=== PATIENT | male | born 1930 | race Caucasian/White ===

== ENCOUNTER 2016-08-23 09:51 | Inpatient (IN) | payer OTHER ==
--- NOTE | 2016-08-23 10:39 | PDOC ---
History of Present Illness - General Chief Complaint: Weakness Stated Complaint: PAIN Time Seen by Provider: 08/23/16 10:15 History Source: Patient Exam Limitations: No Limitations - History of Present Illness Initial Comments: 08/23/16 10:36 85 yo M with significant PMHx of CHF(s/p AICD), CAD(s/p CABG 2009), CKD stage 3 , prostate ca(s/p radiation), and Afib(on predaxa) presents with two day history of productive cough and weakness. He states that he was in his normal state of health until last evening when he started with cough productive of yellow sputum and some chest pressure. He describes 5/10 non-radiating chest pressure that last approx. 5 min and never returned. He states it was related to coughing. He then said he had difficulty sleeping secondary to cough and then this morning he noticed fever and some blood tinged sputum which prompted trip to ED. At this time denies CP, BYNUM, abd. pain, palpitations, N/V. Timing/Duration: 24 hours Severity: mild Associated Symptoms: reports: chest pain, cough Past History - Travel Traveled outside of the country in the last 30 days: No Close contact w/someone who was outside of country & ill: No - Past Medical History Allergies/Adverse Reactions: Allergies Allergy/AdvReac Type Severity Reaction Status Date / Time No Known Allergies Allergy Verified 08/23/16 09:55 Home Medications: Ambulatory Orders Allopurinol [Zyloprim -] 100 mg PO DAILY 08/23/16 Aspirin [Ecotrin] 81 mg PO DAILY 08/23/16 Atorvastatin Ca [Lipitor] 10 mg PO ASDIR 08/23/16 Dabigatran Etexilate Mesylate [Pradaxa -] 75 mg PO BID 08/23/16 Folic Acid 1 mg PO DAILY 08/23/16 Furosemide [Lasix] 40 mg PO BID 08/23/16 Hydralazine HCl 50 mg PO TID 08/23/16 Metoprolol Tartrate [Lopressor -] 12.5 mg PO BID 08/23/16 Sodium Polystyrene Sulfonate [Kionex] 454 gm PO DAILY 08/23/16 Tamsulosin HCl [Flomax] 0.4 mg PO DAILY 08/23/16 Cancer: Yes (hx of prostate ca with radiation) Cardiac Disorders: Yes (ppm, AK) GI Disorders: Yes (enlarged prostate) HTN: Yes Hypercholesterolemia: Yes Other medical history: gout - Surgical History Cardiac Surgery: Yes (ppm, bypass) - Psycho/Social/Smoking Cessation Hx Anxiety: No Suicidal Ideation: No Smoking History: Former smoker Have you smoked in the past 12 months: No If you are a former smoker, when did you quit?: 40 years ago Information on smoking cessation initiated: No Hx Alcohol Use: No Drug/Substance Use Hx: No Substance Use Type: None Review of Systems - Review of Systems Able to Perform ROS?: Yes Is the patient limited Slovenian proficient: No Constitutional: Yes: Fever, Malaise Respiratory: Yes: Cough, Shortness of Breath Cardiac (ROS): Yes: Chest Pain, Lightheadedness ABD/GI: No: Nausea, Vomiting, Abdominal cramping : No: Burning, Dysuria, Discharge All Other Systems: Reviewed and Negative *Physical Exam - Vital Signs Last Vital Signs Temp Pulse Resp BP Pulse Ox 101.7 F H 60 18 92/61 89 L 08/23/16 10:18 08/23/16 09:55 08/23/16 09:55 08/23/16 09:55 08/23/16 09:55 - Physical Exam General Appearance: Yes: Mild Distress HEENT: positive: EOMI, MARTIN Neck: positive: Supple Respiratory/Chest: positive: Decreased Breath Sounds, Crackles (bibasilar). negative: Respiratory Distress, Accessory Muscle Use Cardiovascular: positive: Edema (bilateral 2+ LE edema to level of knee). negative: JVD, Murmur Vascular Pulses: Dorsalis-Pedis (R): 2+, Doralis-Pedis (L): 2+ Gastrointestinal/Abdominal: positive: Normal Bowel Sounds, Flat, Soft Musculoskeletal: positive: Normal Inspection. negative: CVA Tenderness Extremity: positive: Normal Inspection, Normal Range of Motion, Pedal Edema. negative: Calf Tenderness, Erythema ED Treatment Course - LABORATORY CBC & Chemistry Diagram: 08/23/16 10:45 08/23/16 10:45 - RADIOLOGY Chest X-Ray Result: Pneumonia Radiograph Interpretation: 08/23/16 11:32 EXAM#: TYPE/EXAM: RESULT: [id number] RAD/CHEST X-RAY PORTABLE* Sepsis. Single portable chest x-ray. Left pacemaker with 2 intact leads. Sternal wires, status post cardiothoracic surgery. Cardiomegaly. Airspace opacities noted in the left mid, lower lungs and with a bronchograms. No effacement of the left diaphragm, blunting of the costophrenic angle. Accentuated pulmonary vasculature. No effacement of the right diaphragm blunting of the right costophrenic angle. Impression. Cardiomegaly. Left parahilar, lower lung zone airspace opacities with air bronchograms. Differential diagnoses: pulmonary edema, pneumonia. No large pleural effusion is seen. No evidence of pneumothorax Reported By: Alex Ramirez MD 08/23/16 1113 Medical Decision Making - Medical Decision Making 08/23/16 10:52 85 yo M with significant PMHx of CHF(s/p AICD), CAD(s/p CABG 2009), CKD stage 3 , prostate ca(s/p radiation), and Afib(on predaxa) presents with two day history of productive cough and weakness. Suspect possible sepsis. Will activate sepsis protocol. 08/23/16 11:35 * CXR show edema v. PNA * Will give 80mg IV lasix and start Rocephin and Azithro x1 * Will need admission for CAP and acute exacerbation of CHF. * Will contact PCP Roscoe Morrison MD 08/23/16 11:56 * Admission accepted by Dr. Morrison *DC/Admit/Observation/Transfer Diagnosis at time of Disposition: Sepsis Qualifiers: Sepsis type: sepsis due to unspecified organism Qualified Code(s): A41.9 - Sepsis, unspecified organism - Discharge Dispostion Condition at time of disposition: Stable Admit: Yes
[2016-08-23] MEDS ORDERED: ACETAMINOPHEN 500 MG TABLET (FP) PO ONE (10:41)
[2016-08-23] MEDS ORDERED: ACETAMINOPHEN INJECTION 100 ML IVPB ONE (10:42)
[2016-08-23 10:54] LABS: VENOUS PH 7.39 (7.32-7.42)
[2016-08-23 11:11] LABS: INR 1.16 (0.82-1.09); PROTHROMBIN TIME (PATIENT) 12.8 SEC (9.98-11.88)
[2016-08-23 11:14] LABS: ACTIVATED PTT 31.9 SECONDS (26.9-34.4)
[2016-08-23] MEDS ORDERED: FUROSEMIDE 40 MG/4 ML INJECTABLE VIAL IVPUSH ONE (11:18)
[2016-08-23 11:22] LABS: URINE APPEARANCE CLEAR; URINE BILIRUBIN NEGATIVE (NEGATIVE); URINE BLOOD NEGATIVE (NEGATIVE); URINE COLOR YELLOW; URINE GLUCOSE (UA) NEGATIVE (NEGATIVE); URINE KETONE NEGATIVE (NEGATIVE); URINE LEUK ESTERASE NEGATIVE (NEGATIVE); URINE NITRITE NEGATIVE (NEGATIVE); URINE PROTEIN NEGATIVE (NEGATIVE); URINE UROBILINOGEN NEGATIVE E.U./dl (0.2-1.0)
[2016-08-23] MEDS ORDERED: cefTRIAXone 1 GM/50 ML BAG (PRE-DOCKED) IVPB ONE (11:23)
[2016-08-23 11:25] LABS: ALBUMIN 2.9 g/dl (3.4-5.0); BILIRUBIN,TOTAL 0.9 mg/dL (0.2-1.0); CALCIUM 8.5 mg/dL (8.5-10.1); COCKROFT - GAULT 28.7; CREATININE 2.7 mg/dL (0.7-1.3); TOT PROT 6.1 g/dl (6.4-8.2)
[2016-08-23] MEDS ORDERED: AZITHROMYCIN IVPB 500 MG in DEXTROSE 5%-WATER - 250 ML IVPB ONE (11:25)
[2016-08-23 11:28] LABS: TROPONIN I 0.1 ng/ml (0.00-0.05)
[2016-08-23 11:46] LABS: MCH 30.7 pg (25.7-33.7); MCHC 32.5 g/dl (32.0-35.9); MEAN CELL VOLUME 94.3 fl (80-96); PLATELET COUNT 260 K/MM3 (134-434); RDW 14.7 % (11.9-15.9); WHITE BLOOD COUNT 25.1 K/mm3 (4.0-10.0)
[2016-08-23] MEDS ORDERED: FUROSEMIDE 40 MG/4 ML INJECTABLE VIAL ONE (11:48)
[2016-08-23] MEDS ORDERED: CEFTRIAXONE 50 ML ONE ×2 (11:51→17:08)
[2016-08-23] MEDS ORDERED: AZITHROMYCIN IVPB 250 ML IVPB ONE (11:51)
[2016-08-23] MEDS ORDERED: SODIUM CHLORIDE 250 ML IV STA (12:46)
[2016-08-23 12:49] LABS: PLATELET ESTIMATE ADEQUATE (NORMAL)
[2016-08-23 12:50] VITALS: BMI 28.7
--- NOTE | 2016-08-23 13:29 | HP ---
CHIEF COMPLAINT: weakness with + productive cough PCP: Roscoe Morrison HISTORY OF PRESENT ILLNESS: 85 yo M with significant PMHx of CHF(s/p AICD), CAD(s/p CABG 2009), CKD stage 3 , prostate ca(s/p radiation), and Afib(on pradaxa) presents with two day history of productive cough and weakness. He states that he was in his normal state of health until last evening when he started with cough productive of yellow sputum and some chest pressure. He describes 5/10 non-radiating chest pressure that last approx. 5 min and never returned. He states it was related to coughing. He then said he had difficulty sleeping secondary to cough and then this morning he noticed fever and some blood tinged sputum which prompted trip to ED. At this time denies CP, BYNUM, abd. pain, palpitations, N/V. Pt states he took all of his home meds prior to coming in . He was also found in ER with fever over 101, Lactic acid of over 2, trop of 0.10, congestion and suspcion of PNA on CXR. Treated initially Azithro, Rocephin for PNA, Lasix 80 for fluid congestion, tylenol for fever. ER course was notable for: (1) hypotension; during ER stay pt with SIRS findings of fever, hypothension, treated gingerly with 250 bolus x 2 with close montioring and shows improvement to 94/60. Asymtomatic. (2) PNA/chest congestion: ABT, LA, blood cx ordered. (3) Recent Travel: PAST MEDICAL HISTORY: CHF, AICD, CAD, CABG, CKD, BPH, AF, PAST SURGICAL HISTORY: Social History: Smoking: Alcohol: Drugs: Family History: Allergies No Known Allergies Allergy (Verified 08/23/16 09:55) HOME MEDICATIONS: Home Medications Medication Instructions Recorded Allopurinol [Zyloprim -] 100 mg PO DAILY 08/23/16 Aspirin [Ecotrin] 81 mg PO DAILY 08/23/16 Atorvastatin Ca [Lipitor] 10 mg PO ASDIR 08/23/16 Dabigatran Etexilate Mesylate 75 mg PO BID 08/23/16 [Pradaxa -] Folic Acid 1 mg PO DAILY 08/23/16 Furosemide [Lasix] 40 mg PO BID 08/23/16 Hydralazine HCl 50 mg PO TID 08/23/16 Metoprolol Tartrate [Lopressor -] 12.5 mg PO BID 08/23/16 Sodium Polystyrene Sulfonate 454 gm PO DAILY 08/23/16 [Kionex] Tamsulosin HCl [Flomax] 0.4 mg PO DAILY 08/23/16 REVIEW OF SYSTEMS CONSTITUTIONAL: Absent: (+)fever, (+)chills, diaphoresis, (+)generalized weakness, malaise, loss of appetite, weight change HEENT: Absent: rhinorrhea, nasal congestion, throat pain, throat swelling, difficulty swallowing, mouth swelling, ear pain, eye pain, visual changes CARDIOVASCULAR: Absent: chest pain, syncope, palpitations, irregular heart rate, lightheadedness , (+) chronicperipheral edema RESPIRATORY: Absent: (+)cough, (+)shortness of breath, dyspnea with exertion, orthopnea, wheezing, stridor, hemoptysis GASTROINTESTINAL: Absent: abdominal pain, abdominal distension, nausea, vomiting, diarrhea, constipation, melena, hematochezia GENITOURINARY: Absent: dysuria, frequency, urgency, hesitancy, hematuria, flank pain, genital pain MUSCULOSKELETAL: Absent: myalgia, arthralgia, joint swelling, back pain, neck pain SKIN: Absent: rash, itching, pallor HEMATOLOGIC/IMMUNOLOGIC: Absent: easy bleeding, easy bruising, lymphadenopathy, frequent infections ENDOCRINE: Absent: unexplained weight gain, unexplained weight loss, heat intolerance, cold intolerance NEUROLOGIC: Absent: headache, focal weakness or paresthesias, dizziness, unsteady gait, seizure, mental status changes, bladder or bowel incontinence PSYCHIATRIC: Absent: anxiety, depression, suicidal or homicidal ideation, hallucinations. PHYSICAL EXAMINATION Vital Signs - 24 hr 08/23/16 08/23/16 08/23/16 12:14 12:21 12:27 Temperature 98.8 F 98.8 F Pulse Rate 60 Pulse Rate [ 62 Apical] Respiratory 18 18 Rate Blood Pressure 105/54 Blood Pressure 88/50 [Right Arm] O2 Sat by Pulse 97 98 Oximetry (%) 08/23/16 12:48 Temperature Pulse Rate Pulse Rate [ 60 Apical] Respiratory 18 Rate Blood Pressure Blood Pressure 79/47 [Right Arm] O2 Sat by Pulse 97 Oximetry (%) GENERAL: Awake, alert, and fully oriented, in no acute distress. HEAD: Normal with no signs of trauma. NECK: Normal range of motion, supple without lymphadenopathy,(+) JVD, or masses. LUNGS: Breath sounds equal, bilateral congestion, rhonchi to auscultation bilaterally. No wheezes, No accessory muscle use. HEART: Regular rate and rhythm, normal S1 and S2 without murmur, rub or gallop. with a V paced rhythm ABDOMEN: Soft, nontender, slightly distended but pt states this is normal size of belly, normoactive bowel sounds, no guarding, no rebound, no masses. No hepatomegaly or splenomegaly. MUSCULOSKELETAL: Normal range of motion at all joints. No bony deformities or tenderness. No CVA tenderness. UPPER EXTREMITIES: 2+ pulses, warm, well-perfused. No cyanosis. No clubbing. No peripheral edema. LOWER EXTREMITIES: 2+ pulses, warm, well-perfused. No calf tenderness. +1 bilateral peripheral edema. NEUROLOGICAL: Cranial nerves II-XII intact. Normal speech. Normal gait. PSYCHIATRIC: Cooperative. Good eye contact. Appropriate mood and affect. SKIN: Warm, dry, normal turgor, no rashes or lesions noted, normal capillary refill. ASSESSMENT/PLAN: 85 yr old male with new onset of weakness and + cough production for 2 days with c/o fever, chills. Includes finding of + fever, +hypotension, + chest congestion/fluid/PNA, 1. Pneumonia -Rocephin and azithromax ordered starting today -trend WBC with today at 25 -monitor fever and tx with tylenol -repeat LA -oxygen to maintain sat >95% 2. hypotension -given lasix 80 in ER. -monitor bp -ICU care -ivf bolus 250 at time to monitor tolerance 3. CAD -continue meds -repeat Trop at 5 pm and again in AM for trending. 4. GI/DVT ppx Visit type - Emergency Visit Emergency Visit: Yes ED Registration Date: 08/23/16 Care time: The patient presented to the Emergency Department on the above date and was hospitalized for further evaluation of their emergent condition. - New Patient This patient is new to me today: Yes Date on this admission: 08/23/16 - Critical Care Critical Care patient: No
[2016-08-23] MEDS ORDERED: hydrALAZINE HCL 50 MG TABLET (FP) PO SCH (14:00)
[2016-08-23] MEDS ORDERED: SODIUM CHLORIDE 0.9% 1000 ML INFUS.BAG IV ONE (14:06)
[2016-08-23] MEDS ORDERED: ACETAMINOPHEN 500 MG TABLET (FP) PO PRN (14:08)
[2016-08-23] MEDS ORDERED: FUROSEMIDE 40 MG TABLET (FP) PO SCH (14:45)
--- NOTE | 2016-08-23 16:14 | PN ---
Teaching Attending Note Name of Resident: Mone Mendoza ATTENDING PHYSICIAN STATEMENT I saw and evaluated the patient. I reviewed the resident's note and discussed the case with the resident. I agree with the resident's findings and plan as documented. SUBJECTIVE: Patient seen and examined in the ICU. In brief, 85 M CHF, AICD about 5 years ago, CAD, CABGx4 in 2010, CKD stage 3, prostate CA (s/p radiation), and Afib on Pradxa. 2 days of URI type symptoms. Developed congested cough and today had slight hemoptysis. (+) subjective fever. No travel history. Lives with who has is healthy. No sick contacts. CXR: Rotated / slightly underexposed. Suspected LLL infiltrate / possible chronic changes are noted. Sepsis considered due to fever, hypotension, Leukocytosis, and elevated lactic acid. Intake & Output 08/20/16 08/21/16 08/22/16 08/23/16 23:59 23:59 23:59 23:59 Intake Total 250 Balance 250 Weight 189 lb Last Vital Signs Temp Pulse Resp BP Pulse Ox 98.9 F 61 19 102/50 99 08/23/16 14:50 08/23/16 14:50 08/23/16 14:50 08/23/16 14:50 08/23/16 15:00 Active Medications Acetaminophen (Tylenol -) 1,000 mg PO Q6H PRN PRN Reason: FEVER OR PAIN Allopurinol (Zyloprim -) 100 mg PO DAILY [facility] Aspirin (Ecotrin -) 81 mg PO DAILY [facility] Atorvastatin Calcium (Lipitor -) 10 mg PO HS [facility] Dabigatran (Pradaxa -) 75 mg PO BID [facility] Folic Acid (Folic Acid -) 1 mg PO DAILY [facility] Azithromycin 250 mg/ Dextrose 250 mls @ 250 mls/hr IVPB DAILY [facility] Ceftriaxone Sodium (Rocephin 1gm Ivpb (Pre-Docked)) 50 mls @ 100 mls/hr IVPB DAILY [facility] Metoprolol Tartrate (Lopressor -) 12.5 mg PO BID [facility] Non-Formulary Medication (Sodium Polystyrene Sulfonate [Kionex]) 454 gm PO DAILY [facility] Tamsulosin HCl (Flomax -) 0.4 mg PO DAILY [facility] General Appearance: Yes: Awake and alert, NAD HEENT: positive: (-) Icterus Neck: positive: Supple Respiratory/Chest: positive: Bibasilar crackles Left > Right negative: (-) wheezing, Accessory Muscle Use Cardiovascular: positive: Edema (bilateral 2+ LE edema to level of knee). negative: JVD, Murmur Vascular Pulses: Dorsalis-Pedis (R): 2+, Doralis-Pedis (L): 2+ Gastrointestinal/Abdominal: positive: (+) Bowel Sounds, Flat, Soft Musculoskeletal: positive: Normal Inspection. negative: CVA Tenderness Extremity: positive: Normal Inspection, Normal Range of Motion, Pedal Edema. negative: Calf Tenderness, Erythema Laboratory Results - last 24 hr 08/23/16 08/23/16 08/23/16 10:43 10:45 10:45 WBC 25.1 H RBC 3.93 L Hgb 12.0 Hct 37.0 MCV 94.3 MCHC 32.5 RDW 14.7 Plt Count 260 MPV 10.0 Neutrophils % 80.0 Lymphocytes % 3.0 L Monocytes % 9.0 Band Neutrophils 8.0 Platelet Estimate Adequate Platelet Comment No clumping noted INR 1.16 H PTT (Actin FS) 31.9 VBG pH POC VBG pCO2 POC VBG pO2 Mixed VBG HCO3 Sodium Potassium Chloride Carbon Dioxide Anion Gap BUN Creatinine Creat Clearance w eGFR Random Glucose Lactic Acid Calcium Total Bilirubin AST ALT Alkaline Phosphatase Creatine Kinase Troponin I Total Protein Albumin Urine Color Urine Appearance Urine pH Ur Specific [place] Urine Protein Urine Glucose (UA) Urine Ketones Urine Blood Urine Nitrite Urine Bilirubin Urine Urobilinogen Ur Leukocyte Esterase Blood Type A POSITIVE Antibody Screen Negative 08/23/16 08/23/16 08/23/16 10:45 10:45 10:45 WBC RBC Hgb Hct MCV MCHC RDW Plt Count MPV Neutrophils % Lymphocytes % Monocytes % Band Neutrophils Platelet Estimate Platelet Comment INR PTT (Actin FS) VBG pH 7.39 POC VBG pCO2 43.7 POC VBG pO2 15.7 L* Mixed VBG HCO3 26.0 H Sodium 139 Potassium 4.5 Chloride 100 Carbon Dioxide 28 Anion Gap 11 BUN 73 H Creatinine 2.7 H Creat Clearance w eGFR 22.63 Random Glucose 92 Lactic Acid 2.126 H* Calcium 8.5 Total Bilirubin 0.9 AST 20 ALT 17 Alkaline Phosphatase 55 Creatine Kinase 70 Troponin I 0.10 H Total Protein 6.1 L Albumin 2.9 L Urine Color Urine Appearance Urine pH Ur Specific [place] Urine Protein Urine Glucose (UA) Urine Ketones Urine Blood Urine Nitrite Urine Bilirubin Urine Urobilinogen Ur Leukocyte Esterase Blood Type Antibody Screen 08/23/16 08/23/16 11:15 13:15 WBC RBC Hgb Hct MCV MCHC RDW Plt Count MPV Neutrophils % Lymphocytes % Monocytes % Band Neutrophils Platelet Estimate Platelet Comment INR PTT (Actin FS) VBG pH POC VBG pCO2 POC VBG pO2 Mixed VBG HCO3 Sodium Potassium Chloride Carbon Dioxide Anion Gap BUN Creatinine Creat Clearance w eGFR Random Glucose Lactic Acid 1.531 Calcium Total Bilirubin AST ALT Alkaline Phosphatase Creatine Kinase Troponin I Total Protein Albumin Urine Color Yellow Urine Appearance Clear Urine pH 5.0 Ur Specific [place] 1.013 Urine Protein Negative Urine Glucose (UA) Negative Urine Ketones Negative Urine Blood Negative Urine Nitrite Negative Urine Bilirubin Negative Urine Urobilinogen Negative Ur Leukocyte Esterase Negative Blood Type Antibody Screen IMP: Sepsis due to suspected LLL CAP CHF AICD about 5 years ago CAD CABGx4 in 2009 CKD stage 3 Prostate CA (s/p radiation) Afib on Pradxa. PLAN: ABX Judicious IVF O2 as needed Xavier-culture OK to continue Pradaxa for now Strict I&O ICU monitoring Critical care time spent in reviewing chart, evaluating patient and formulating plan [address] Balbuena
--- NOTE | 2016-08-23 16:20 | CONSULT ---
Consultation: REQUESTING PROVIDER: CONSULT REQUEST: We have been asked to medically evaluate this patient for (ICU) . HISTORY OF PRESENT ILLNESS: 85 yo M with significant PMHx of CHF(s/p AICD), CAD(s/p CABG 2009), CKD stage 3 , prostate ca(s/p radiation), and Afib(on pradaxa) presents with sob. patient was feeling like his normal self after working outside, cleaning his basement, and running on the treadmill. when he developed sob, productive yellow cough. Patient reports progressive cough, when he woke up this morning he caught one small amount of blood tinged sputum and non radiating chest pain last 5 minutes in his epigastric area. pain was constant, pressure like, attributes it to the cough. no sick contact, has not been ill recent, no recent hospitalization, has had cystoscopy 4 weeks ago for hematurea and scheduled for excision biopsy of uterine mass. Pt states he took all of his home meds prior to coming in. In ED found 101, Lactic acid of over 2, trop of 0.10, congestion and suspcion of PNA on CXR. Treated initially Azithro, Rocephin for PNA, Lasix 80 for fluid congestion, tylenol for fever. hypotension; during ER stay pt with SIRS findings of fever, hypothension, treated gingerly with 250 bolus x 2 with close montioring and shows improvement to 94/60. Asymptomatic. currently 106/62. reports fever, chills, cough, hemoptysis, diaphoresis, shortness of breath, The patient denies, headache. The patient denies jaw/ back pain lower extremity pain/swelling, calf tenderness/pain The patient denies recent travel, recent surgery,lower extremity pain/swelling, recent immobilization. The patient denies abdominal pain,nausea, vomiting, diarrhea, hematochezia, melena. Social HX: THe fomer smoker, denies ETOH and illicit drug use. REVIEW OF SYSTEMS: as above CONSTITUTIONAL: fever, chills, diaphoresis, generalized weakness, malaise, Absent: loss of appetite, weight change HEENT: Absent: rhinorrhea, nasal congestion, throat pain, throat swelling, difficulty swallowing, mouth swelling, ear pain, eye pain, visual changes CARDIOVASCULAR: peripheral edema Absent: chest pain, syncope, palpitations, irregular heart rate, lightheadedness , RESPIRATORY: cough, shortness of breath, hemoptysis Absent: dyspnea with exertion, orthopnea, wheezing, stridor, GASTROINTESTINAL: Absent: abdominal pain, abdominal distension, nausea, vomiting, diarrhea, constipation, melena, hematochezia GENITOURINARY: Absent: dysuria, frequency, urgency, hesitancy, hematuria, flank pain, genital pain MUSCULOSKELETAL: Absent: myalgia, arthralgia, joint swelling, back pain, neck pain SKIN: Absent: rash, itching, pallor HEMATOLOGIC/IMMUNOLOGIC: Absent: easy bleeding, easy bruising, lymphadenopathy, frequent infections ENDOCRINE: Absent: unexplained weight gain, unexplained weight loss, heat intolerance, cold intolerance NEUROLOGIC: Absent: headache, focal weakness or paresthesias, dizziness, unsteady gait, seizure, mental status changes, bladder or bowel incontinence PSYCHIATRIC: Absent: anxiety, depression, suicidal or homicidal ideation, hallucinations. PHYSICAL EXAMINATION Vital Signs - 24 hr 08/23/16 08/23/16 08/23/16 12:14 12:21 12:27 Temperature 98.8 F 98.8 F Pulse Rate 60 Pulse Rate [ 62 Apical] Respiratory 18 18 Rate Blood Pressure 105/54 Blood Pressure 88/50 [Right Arm] O2 Sat by Pulse 97 98 Oximetry (%) 08/23/16 08/23/16 08/23/16 12:48 13:34 13:44 Temperature Pulse Rate Pulse Rate [ 60 60 60 Apical] Respiratory 18 20 18 Rate Blood Pressure Blood Pressure 79/47 96/55 94/51 [Right Arm] O2 Sat by Pulse 97 98 98 Oximetry (%) 08/23/16 08/23/16 08/23/16 14:30 14:50 15:00 Temperature 98.9 F Pulse Rate 61 Pulse Rate [ 60 Apical] Respiratory 18 19 Rate Blood Pressure 102/50 Blood Pressure 96/50 [Right Arm] O2 Sat by Pulse 98 99 Oximetry (%) GENERAL: Awake, alert, and fully oriented, in no acute distress. HEAD: Normal with no signs of trauma. EYES: extraocular movements intact, sclera anicteric, conjunctiva clear. EARS, NOSE, THROAT: Ears normal, nares patent, oropharynx clear without exudates. Moist mucous membranes. NECK: Normal range of motion, supple without lymphadenopathy, JVD, or masses. LUNGS: Breath sounds equal, crackles at bases bilateraly, + rhonchi left, No wheezes, and no crackles. No accessory muscle use. HEART: Regular rate and rhythm, normal S1 and S2 without murmur, rub or gallop. ABDOMEN: Soft, nontender, not distended, normoactive bowel sounds, no guarding, no rebound, no masses. No hepatomegaly or splenomegaly. MUSCULOSKELETAL: Normal range of motion at all joints. No bony deformities or tenderness. No CVA tenderness. LOWER EXTREMITIES: 2+ pulses, warm, well-perfused. No calf tenderness. +2 peripheral edema. NEUROLOGICAL: Cranial nerves II-XII intact. Normal speech. PSYCHIATRIC: Cooperative. Good eye contact. Appropriate mood and affect. SKIN: Warm, dry, normal turgor, no rashes or lesions noted. Laboratory Results - last 24 hr 08/23/16 13:15 Lactic Acid 1.531 Active Medications Generic Name Dose Route Start Last Admin Trade Name Freq PRN Reason Stop Dose Admin Acetaminophen 1,000 mg 08/23/16 14:08 Tylenol - PO Q6H PRN FEVER OR PAIN Allopurinol 100 mg 08/24/16 10:00 Zyloprim - PO DAILY [facility] Aspirin 81 mg 08/24/16 10:00 Ecotrin - PO DAILY [facility] Atorvastatin Calcium 10 mg 08/23/16 22:00 Lipitor - PO HS [facility] Dabigatran 75 mg 08/23/16 22:00 Pradaxa - PO BID [facility] Folic Acid 1 mg 08/24/16 10:00 Folic Acid - PO DAILY [facility] Azithromycin 250 mg/ Dextrose 250 mls @ 250 mls/hr 08/24/16 10:00 IVPB DAILY [facility] Ceftriaxone Sodium 50 mls @ 100 mls/hr 08/24/16 10:00 Rocephin 1gm Ivpb (Pre-Docked) IVPB DAILY [facility] Metoprolol Tartrate 12.5 mg 08/23/16 22:00 Lopressor - PO BID [facility] Non-Formulary Medication 454 gm 08/24/16 10:00 Sodium Polystyrene Sulfonate [Kionex] PO DAILY [facility] Tamsulosin HCl 0.4 mg 08/24/16 10:00 Flomax - PO DAILY [facility] ASSESSMENT/PLAN: 85 yo M with significant PMHx of CHF(s/p AICD), CAD(s/p CABG 2009), CKD stage 3 , prostate ca(s/p radiation), and Afib(on pradaxa) presents with sob and productive cough for 2 days. Severe Sepsis: secondary possible bacterial PNA: febrile, leukocytes wbc 25k, lactica acidosis, CARROL, (hypotension secondary to Lasix responded to fluids) +- troponins. -CXR Rotated / slightly underexposed. Suspected LLL infiltrate / possible chronic changes are noted. -Rocephin/zithromax -f/u Cultures, UA antigen -Rocephin and azithromax ordered starting today -patient is extensive cardiac history, IV hydration 50cc/hr, currently BP stable , consider more aggressive treatment if BP decreases -monitor fever and tx with tylenol -oxygen to maintain sat >95% hypotension- resolved- secondary to patient taking home meds, and getting lasixs in ER. -d/c lasix -d/c hydrazine -monitor bp -ICU care IV NS 50cc/hr CAD -continue meds -repeat Trop at 5 pm and again in AM for trending. - cardio consulted Hematuria with bladder mass -patient following up as outpatient Hyperlipidemia -Lipitor GI/DVT ppx FEN IVNS 50cc/hr low cholesterol/na diet Replete electrolyte as needed Dispo: We will continue to follow the patient. Thank you for this consultative opportunity. Visit type - Emergency Visit Emergency Visit: Yes ED Registration Date: 08/23/16 Care time: The patient presented to the Emergency Department on the above date and was hospitalized for further evaluation of their emergent condition. - New Patient This patient is new to me today: Yes Date on this admission: 08/23/16 - Critical Care Critical Care patient: Yes Total Critical Care Time (in minutes): 56 Critical Care Statement: The care of this patient involved high complexity decision making to prevent further life threatening deterioration of the patient 's condition and/or to evalute & treat vital organ system(s) failure or risk of failure.
[2016-08-23] MEDS ORDERED: SODIUM CHLORIDE 1,000 ML IV SCH (16:30)
--- NOTE | 2016-08-23 16:39 | CONSULT ---
Consult Consult Specialty:: Nephrology Reason for Consultation:: CKD - History of Present Illness Chief Complaint: cough and weakness History of Present Illness: Pt is an 85 year old male with pmhx of CKD stage 3, CHF, AICD placement, CAD s/ p CABG, prostate cancer and a-fib who presents to the ER with weakness and cough. Pt is usually active. He was found to be febrile in the ER and was found to have elevated lactic acid. Pt was initially given fluids. He was then given lasix. He became hypotensive and fluids were restarted. I was called to evaluate pt for CKD. He is accompanied by his son. He has history of CKD stage 3 and follows with a nepnrologist in [facility]. He denies dysuria. He does get hematuria at times. He says he currently feels better than he did this morning. He is more awake and alert. He did tolerate lunch. - History Source History Provided By: Patient, Family Member, Medical Record - Past Medical History Cardio/Vascular: Yes: AFIB, CAD, CHF, HTN Renal/: Yes: Renal Inusuff, Hematuria Heme/Onc: Yes: Other (prostate cancer) - Past Surgical History Past Surgical History: Yes: CABG - Alcohol/Substance Use Hx Alcohol Use: No - Smoking History Smoking history: Former smoker Have you smoked in the past 12 months: No If you are a former smoker, when did you quit?: 40 years ago Home Medications - Allergies Allergies/Adverse Reactions: Allergies Allergy/AdvReac Type Severity Reaction Status Date / Time No Known Allergies Allergy Verified 08/23/16 09:55 - Home Medications Home Medications: Ambulatory Orders Allopurinol [Zyloprim -] 100 mg PO DAILY 08/23/16 Aspirin [Ecotrin] 81 mg PO DAILY 08/23/16 Atorvastatin Ca [Lipitor] 10 mg PO ASDIR 08/23/16 Dabigatran Etexilate Mesylate [Pradaxa -] 75 mg PO BID 08/23/16 Folic Acid 1 mg PO DAILY 08/23/16 Furosemide [Lasix] 40 mg PO BID 08/23/16 Hydralazine HCl 50 mg PO TID 08/23/16 Metoprolol Tartrate [Lopressor -] 12.5 mg PO BID 08/23/16 Sodium Polystyrene Sulfonate [Kionex] 454 gm PO DAILY 08/23/16 Tamsulosin HCl [Flomax] 0.4 mg PO DAILY 08/23/16 Family Disease History - Family Disease History Family History: Denies Review of Systems - Review of Systems Constitutional: reports: Chills, Malaise Eyes: reports: No Symptoms HENT: reports: No Symptoms Neck: reports: No Symptoms Cardiovascular: reports: Shortness of Breath Respiratory: reports: Cough, SOB, SOB on Exertion Gastrointestinal: reports: No Symptoms Genitourinary: reports: No Symptoms Musculoskeletal: reports: No Symptoms Neurological: reports: No Symptoms Endocrine: reports: No Symptoms Hematology/Lymphatic: reports: No Symptoms Psychiatric: reports: No Symptoms Physical Exam Vital Signs: Vital Signs Temperature 98.9 F 08/23/16 14:50 Pulse Rate 61 08/23/16 14:50 Respiratory Rate 19 08/23/16 14:50 Blood Pressure 102/50 08/23/16 14:50 O2 Sat by Pulse Oximetry (%) 99 08/23/16 15:00 Selected Entries 08/23/16 08/23/16 08/23/16 10:18 11:06 12:21 Temperature 101.7 F H Blood Pressure Blood Pressure 105/54 88/50 [Right Arm] 08/23/16 08/23/16 08/23/16 12:48 13:34 13:44 Temperature Blood Pressure Blood Pressure 79/47 96/55 94/51 [Right Arm] 08/23/16 08/23/16 14:30 14:50 Temperature Blood Pressure 102/50 Blood Pressure 96/50 [Right Arm] Constitutional: Yes: Calm Eyes: Yes: Conjunctiva Clear HENT: Yes: Atraumatic Neck: Yes: Supple Cardiovascular: Yes: S1, S2 Respiratory: Yes: On Nasal O2, Rhonchi Gastrointestinal: Yes: Soft Renal/: Yes: WNL Musculoskeletal: Yes: WNL Edema: Yes Edema: LLE: Trace, RLE: Trace Neurological: Yes: Oriented Psychiatric: Yes: Oriented Labs: Laboratory Tests 08/23/16 08/23/16 08/23/16 10:45 10:45 10:45 WBC 25.1 H Hgb 12.0 Plt Count 260 INR 1.16 H Sodium 139 Potassium 4.5 Chloride 100 Carbon Dioxide 28 Anion Gap 11 BUN 73 H Creatinine 2.7 H Creat Clearance w eGFR 22.63 Lactic Acid Calcium 8.5 Total Bilirubin 0.9 AST 20 ALT 17 Alkaline Phosphatase 55 Creatine Kinase 70 Troponin I 0.10 H Total Protein 6.1 L Albumin 2.9 L Urine Color Urine Appearance Urine pH Ur Specific [place] Urine Protein Urine Glucose (UA) Urine Ketones Urine Blood Urine Nitrite Urine Bilirubin Urine Urobilinogen Ur Leukocyte Esterase 08/23/16 08/23/16 08/23/16 10:45 11:15 13:15 WBC Hgb Plt Count INR Sodium Potassium Chloride Carbon Dioxide Anion Gap BUN Creatinine Creat Clearance w eGFR Lactic Acid 2.126 H* 1.531 Calcium Total Bilirubin AST ALT Alkaline Phosphatase Creatine Kinase Troponin I Total Protein Albumin Urine Color Yellow Urine Appearance Clear Urine pH 5.0 Ur Specific [place] 1.013 Urine Protein Negative Urine Glucose (UA) Negative Urine Ketones Negative Urine Blood Negative Urine Nitrite Negative Urine Bilirubin Negative Urine Urobilinogen Negative Ur Leukocyte Esterase Negative Imaging - Results Chest X-ray: Report Reviewed Problem List - Problems (1) Sepsis Code(s): A41.9 - SEPSIS, UNSPECIFIED ORGANISM Qualifiers: Sepsis type: sepsis due to unspecified organism Qualified Code(s): A41.9 - Sepsis, unspecified organism (2) CKD (chronic kidney disease) stage 3, GFR 30-59 ml/min Code(s): N18.3 - CHRONIC KIDNEY DISEASE, STAGE 3 (MODERATE) (3) CAD (coronary artery disease) Code(s): I25.10 - ATHSCL HEART DISEASE OF [place] CORONARY ARTERY W/O ANG PCTRS (4) Hx of CABG Code(s): Z95.1 - PRESENCE OF AORTOCORONARY BYPASS GRAFT (5) Atrial fibrillation Code(s): I48.91 - UNSPECIFIED ATRIAL FIBRILLATION (6) Prostate CA Code(s): C61 - MALIGNANT NEOPLASM OF PROSTATE Assessment/Plan Current Medications Generic Name Dose Route Start Last Admin Trade Name Freq PRN Reason Stop Dose Admin Acetaminophen 1,000 mg 08/23/16 14:08 Tylenol - PO Q6H PRN FEVER OR PAIN Allopurinol 100 mg 08/24/16 10:00 Zyloprim - PO DAILY [facility] Aspirin 81 mg 08/24/16 10:00 Ecotrin - PO DAILY [facility] Atorvastatin Calcium 10 mg 08/23/16 22:00 Lipitor - PO HS [facility] Ceftriaxone Sodium 2 gm 08/24/16 10:00 Rocephin 2gm Ivpb (Pre-Docked) IVPB DAILY [facility] Protocol Dabigatran 75 mg 08/23/16 22:00 Pradaxa - PO BID [facility] Folic Acid 1 mg 08/24/16 10:00 Folic Acid - PO DAILY [facility] Azithromycin 250 mg/ Dextrose 250 mls @ 250 mls/hr 08/24/16 10:00 IVPB DAILY [facility] Sodium Chloride 1,000 mls @ 50 mls/hr 08/23/16 16:30 Normal Saline - IV 08/24/16 12:29 ASDIR [facility] Metoprolol Tartrate 12.5 mg 08/23/16 22:00 Lopressor - PO BID [facility] Non-Formulary Medication 454 gm 08/24/16 10:00 Sodium Polystyrene Sulfonate [Kionex] PO DAILY [facility] Tamsulosin HCl 0.4 mg 08/24/16 10:00 Flomax - PO DAILY [facility] Laboratory Tests 08/23/16 10:45 Creat Clearance w eGFR 22.63 Impression 1. CKD stage 3 with likely acute component as gfr here is 22 2. Sepsis 3. PNA 4. CAD 5. a-fib 6. hematuria with bladder mass 7. hx prostate cancer 8. hyperlipidemia 9. gout Plan - agree with admission to ICU - IV hydration - hold off diuretics - monitor lactic acid level - repeat labs in am - will attempt to obtain outpt records - ua is neg for blood or protein - urine lytes will not be very useful as pt was given fluids and lasix - discussed with ICU team - will follow Dr Perez
[2016-08-23] MEDS ORDERED: CEFTRIAXONE 1 GM in DEXTROSE 5%-WATER - 50 ML IVPB ONE (16:43)
--- NOTE | 2016-08-23 16:52 | PN ---
Progress Note (short form) - Note Progress Note: ID consult dictated imp/reccd CAP CHF CAD AICD no travel no pets rocephin/zithromax cultures legionella urinary antigen
[2016-08-23] MEDS ORDERED: CEFTRIAXONE 50 ML IVPB ONE (17:11)
[2016-08-23 17:27] LABS: BASOPHIL 0.3 % (0-2.0); EOSINOPHIL 0.1 % (0-4.5); MCH 30.7 pg (25.7-33.7); MCHC 32.7 g/dl (32.0-35.9); MEAN PLT VOLUME 9.2 fl (7.5-11.1); NEUTROPHILS 85.5 % (42.8-82.8); PLATELET COUNT 252 K/MM3 (134-434); RDW 15.1 % (11.9-15.9); WHITE BLOOD COUNT 23.2 K/mm3 (4.0-10.0)
[2016-08-23 17:48] LABS: INR 1.29 (0.82-1.09); PROTHROMBIN TIME (PATIENT) 14.3 SEC (9.98-11.88)
[2016-08-23 17:51] LABS: ACTIVATED PTT 35.8 SECONDS (26.9-34.4)
[2016-08-23 18:14] LABS: URINE APPEARANCE CLEAR; URINE BILIRUBIN NEGATIVE (NEGATIVE); URINE BLOOD NEGATIVE (NEGATIVE); URINE COLOR STRAW; URINE GLUCOSE (UA) NEGATIVE (NEGATIVE); URINE KETONE NEGATIVE (NEGATIVE); URINE LEUK ESTERASE NEGATIVE (NEGATIVE); URINE NITRITE NEGATIVE (NEGATIVE); URINE PROTEIN NEGATIVE (NEGATIVE); URINE UROBILINOGEN NEGATIVE E.U./dl (0.2-1.0)
[2016-08-23 18:39] LABS: TROPONIN I 0.15 ng/ml (0.00-0.05)
[2016-08-23 18:41] LABS: ALBUMIN 2.6 g/dl (3.4-5.0); BILIRUBIN,TOTAL 0.6 mg/dL (0.2-1.0); CALCIUM 8.1 mg/dL (8.5-10.1); COCKROFT - GAULT 23.81; CREATININE 2.8 mg/dL (0.7-1.3); TOT PROT 5.6 g/dl (6.4-8.2)
--- NOTE | 2016-08-23 18:47 | CONS ---
DATE OF CONSULTATION: DATE OF DICTATION: 08/23/2016 INFECTIOUS DISEASE CONSULTATION REQUESTING PHYSICIAN: [facility] CONSULTING PHYSICIAN: Vaughn England M.D. HISTORY OF PRESENT ILLNESS: This is an 85-year-old man who lives at home. He has a history of coronary artery disease, he is status post [place] at age 62. He had a CABG x4. He has an AICD in place. He has chronic kidney disease which has been worsening lately, and his Lasix was increased to b.i.d. quite recently. He was well until yesterday, in fact he even walked on the treadmill. He walks on the treadmill for half an hour every morning until last evening when he started having a cough with some sputum. He had some chest discomfort. The next morning he felt extremely weak and he could not move. He had some hemoptysis, that was this morning, and he came to the emergency room. In the ER he was noted to have fever which he denied at home. He denies any chills or rigors. He denies any dysuria or diarrhea. His appetite has been fine. He was found to have an elevated lactic acid, a troponin of 0.1, and bilateral infiltrates on chest x-ray were noted. He was given ceftriaxone and Zithromax and I am asked to see him. PAST MEDICAL HISTORY: Notable for congestive heart failure, coronary artery disease, chronic kidney disease. He has a history of atrial fibrillation, prostate cancer. He is status post CABG x4 in 2005 and after that he had an AICD placed. ALLERGIES: No known drug allergies. MEDICATION: Medications at home include allopurinol, Ecotrin, Lipitor, Pradaxa, folic acid, furosemide, hydralazine, metoprolol, and tamsulosin. FAMILY HISTORY: Noncontributory. 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 He is a former smoker, quit 40 years ago. He has been for 55 years. He has 4 children. He lives with his . 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 There is no history of any travel. They have no pets. He does use the treadmill every day, and he spends a lot of time outside. REVIEW OF SYSTEMS: There is no diarrhea, dysuria. Chest pain has resolved. He has cough, but he no longer has any productive sputum. PHYSICAL EXAMINATION: General: He is currently resting comfortably, he is hard of hearing. He has bilateral hearing aids. Vital signs: T-max is 101.7, current temperature is 98.9, blood pressure if 95/54, pulse 62, respiratory rate 20, saturating 99% on 3 L. HEENT: Normocephalic. Eyes are anicteric. He has partial dentures. He has no thrush. Neck: Supple. No meningeal signs. Lungs: Bibasilar crackles. Heart: Regular rate and rhythm. His ICD site is without erythema. Abdomen: Soft, nontender. Extremities: Notable for bilateral lower extremity edema of 1+. LABORATORY: Notable for white count of 25,000, hemoglobin is 12, platelets 260, INR 1.16. BUN and creatinine are 73 and 2.7, lactic acid was 2.1 and on repeat is 1.5. Urinalysis is negative. Cultures are pending. Influenza screen was done in the ER and is negative. IMPRESSION: In summary, this is an 85-year-old man with community acquired pneumonia, congestive heart failure, coronary artery disease, with AICD, history of prostate cancer as well. There is no history of travel or pets. No recent antibiotics. No hospitalizations. Will treat him with ceftriaxone and Zithromax. Follow up his cultures. Would obtain a legionella urinary antigen as well. Further recommendations to follow based on his clinical course. VAUGHN ENGLAND M.D. [id number]
[2016-08-23] MEDS: ATORVASTATIN CA 10 MG TABLET (FP) PO SCH (21:51)
[2016-08-23] MEDS: METOPROLOL TARTRATE 25 MG TABLET (FP) PO SCH (21:52)
[2016-08-23] MEDS: DABIGATRAN ETEXILATE MESYLATE 75 MG CAPSULE PO SCH (22:00)
[2016-08-23] MEDS ORDERED: PT OWN MED DRAWER 7, Y5N ONE (23:15)
[2016-08-24 06:58] LABS: MCH 30.5 pg (25.7-33.7); MCHC 32.2 g/dl (32.0-35.9); MEAN CELL VOLUME 94.9 fl (80-96); MEAN PLT VOLUME 9.5 fl (7.5-11.1); PLATELET COUNT 253 K/MM3 (134-434); RDW 15.3 % (11.9-15.9); WHITE BLOOD COUNT 14.7 K/mm3 (4.0-10.0)
[2016-08-24 07:10] LABS: INR 1.28 (0.82-1.09); PROTHROMBIN TIME (PATIENT) 14.1 SEC (9.98-11.88)
[2016-08-24 07:13] LABS: ACTIVATED PTT 31.9 SECONDS (26.9-34.4)
[2016-08-24 07:23] LABS: CALCIUM 8.8 mg/dL (8.5-10.1); COCKROFT - GAULT 26.26; CREATININE 2.5 mg/dL (0.7-1.3)
[2016-08-24 07:25] LABS: TROPONIN I 0.14 ng/ml (0.00-0.05)
--- NOTE | 2016-08-24 09:10 | PN ---
Progress Note (short form) - Note Progress Note: Patient seen and examined in the ICU. Awake and alert. Still with some congested cough. Reports some pleuritic type chest discomfort with cough. No hemoptysis. No fever. Intake & Output 08/21/16 08/22/16 08/23/16 08/24/16 23:59 23:59 23:59 23:59 Intake Total 460 Output Total 1400 Balance 460 -1400 Weight 189 lb 186 lb 1.6 oz Last Vital Signs Temp Pulse Resp BP Pulse Ox 98.2 F 64 13 141/65 98 08/24/16 06:00 08/24/16 07:00 08/24/16 07:00 08/24/16 07:00 08/23/16 20:06 Active Medications Acetaminophen (Tylenol -) 1,000 mg PO Q6H PRN PRN Reason: FEVER OR PAIN Allopurinol (Zyloprim -) 100 mg PO DAILY [facility] Aspirin (Ecotrin -) 81 mg PO DAILY [facility] Atorvastatin Calcium (Lipitor -) 10 mg PO HS [facility] Last Admin: 08/23/16 21:51 Dose: 10 mg Ceftriaxone Sodium (Rocephin 2gm Ivpb (Pre-Docked)) 2 gm IVPB DAILY [facility] PRN Reason: Protocol Dabigatran (Pradaxa -) 75 mg PO BID [facility] Last Admin: 08/23/16 22:00 Dose: 75 mg Folic Acid (Folic Acid -) 1 mg PO DAILY [facility] Azithromycin 250 mg/ Dextrose 250 mls @ 250 mls/hr IVPB DAILY [facility] Sodium Chloride (Normal Saline -) 1,000 mls @ 50 mls/hr IV ASDIR [facility] Stop: 08/24/16 12:29 Last Admin: 08/23/16 17:12 Dose: 50 mls/hr Metoprolol Tartrate (Lopressor -) 12.5 mg PO BID [facility] Last Admin: 08/23/16 21:52 Dose: 12.5 mg Non-Formulary Medication (Sodium Polystyrene Sulfonate [Kionex]) 454 gm PO DAILY [facility] Tamsulosin HCl (Flomax -) 0.4 mg PO DAILY [facility] General Appearance: Yes: Awake and alert, NAD HEENT: positive: (-) Icterus Neck: positive: Supple Respiratory/Chest: positive: Bibasilar crackles Left > Right negative: (-) wheezing, Accessory Muscle Use Cardiovascular: positive: Edema (bilateral 2+ LE edema to level of knee). negative: JVD, Murmur Vascular Pulses: Dorsalis-Pedis (R): 2+, Doralis-Pedis (L): 2+ Gastrointestinal/Abdominal: positive: (+) Bowel Sounds, Flat, Soft Musculoskeletal: positive: Normal Inspection. negative: CVA Tenderness Extremity: positive: Normal Inspection, Normal Range of Motion, Pedal Edema. negative: Calf Tenderness, Erythema Laboratory Results - last 24 hr 08/23/16 08/23/16 08/23/16 10:43 10:45 10:45 WBC 25.1 H RBC 3.93 L Hgb 12.0 Hct 37.0 MCV 94.3 MCHC 32.5 RDW 14.7 Plt Count 260 MPV 10.0 Neutrophils % 80.0 Lymphocytes % 3.0 L Monocytes % 9.0 Eosinophils % Basophils % Band Neutrophils 8.0 Platelet Estimate Adequate Platelet Comment No clumping noted INR 1.16 H PTT (Actin FS) 31.9 VBG pH POC VBG pCO2 POC VBG pO2 Mixed VBG HCO3 Sodium Potassium Chloride Carbon Dioxide Anion Gap BUN Creatinine Creat Clearance w eGFR Random Glucose Lactic Acid Calcium Total Bilirubin AST ALT Alkaline Phosphatase Creatine Kinase Troponin I B-Natriuretic Peptide Total Protein Albumin Urine Color Urine Appearance Urine pH Ur Specific [place] Urine Protein Urine Glucose (UA) Urine Ketones Urine Blood Urine Nitrite Urine Bilirubin Urine Urobilinogen Ur Leukocyte Esterase Ur Random Sodium Ur Random Potassium Ur Random Chloride Urine Creatinine Blood Type A POSITIVE Antibody Screen Negative 08/23/16 08/23/16 08/23/16 10:45 10:45 10:45 WBC RBC Hgb Hct MCV MCHC RDW Plt Count MPV Neutrophils % Lymphocytes % Monocytes % Eosinophils % Basophils % Band Neutrophils Platelet Estimate Platelet Comment INR PTT (Actin FS) VBG pH 7.39 POC VBG pCO2 43.7 POC VBG pO2 15.7 L* Mixed VBG HCO3 26.0 H Sodium 139 Potassium 4.5 Chloride 100 Carbon Dioxide 28 Anion Gap 11 BUN 73 H Creatinine 2.7 H Creat Clearance w eGFR 22.63 Random Glucose 92 Lactic Acid 2.126 H* Calcium 8.5 Total Bilirubin 0.9 AST 20 ALT 17 Alkaline Phosphatase 55 Creatine Kinase 70 Troponin I 0.10 H B-Natriuretic Peptide Total Protein 6.1 L Albumin 2.9 L Urine Color Urine Appearance Urine pH Ur Specific [place] Urine Protein Urine Glucose (UA) Urine Ketones Urine Blood Urine Nitrite Urine Bilirubin Urine Urobilinogen Ur Leukocyte Esterase Ur Random Sodium Ur Random Potassium Ur Random Chloride Urine Creatinine Blood Type Antibody Screen 08/23/16 08/23/16 08/23/16 11:15 13:15 17:00 WBC RBC Hgb Hct MCV MCHC RDW Plt Count MPV Neutrophils % Lymphocytes % Monocytes % Eosinophils % Basophils % Band Neutrophils Platelet Estimate Platelet Comment INR PTT (Actin FS) VBG pH POC VBG pCO2 POC VBG pO2 Mixed VBG HCO3 Sodium Potassium Chloride Carbon Dioxide Anion Gap BUN Creatinine Creat Clearance w eGFR Random Glucose Lactic Acid 1.531 Calcium Total Bilirubin AST ALT Alkaline Phosphatase Creatine Kinase Troponin I B-Natriuretic Peptide Total Protein Albumin Urine Color Yellow Urine Appearance Clear Urine pH 5.0 Ur Specific [place] 1.013 Urine Protein Negative Urine Glucose (UA) Negative Urine Ketones Negative Urine Blood Negative Urine Nitrite Negative Urine Bilirubin Negative Urine Urobilinogen Negative Ur Leukocyte Esterase Negative Ur Random Sodium Ur Random Potassium Ur Random Chloride Urine Creatinine 42.7 Blood Type Antibody Screen 08/23/16 08/23/16 08/23/16 17:00 17:00 17:15 WBC RBC Hgb Hct MCV MCHC RDW Plt Count MPV Neutrophils % Lymphocytes % Monocytes % Eosinophils % Basophils % Band Neutrophils Platelet Estimate Platelet Comment INR PTT (Actin FS) VBG pH POC VBG pCO2 POC VBG pO2 Mixed VBG HCO3 Sodium Potassium Chloride Carbon Dioxide Anion Gap BUN Creatinine Creat Clearance w eGFR Random Glucose Lactic Acid Calcium Total Bilirubin AST ALT Alkaline Phosphatase Creatine Kinase 87 Troponin I 0.15 H D B-Natriuretic Peptide 54476.61 H Total Protein Albumin Urine Color Straw Urine Appearance Clear Urine pH 5.0 Ur Specific [place] 1.006 Urine Protein Negative Urine Glucose (UA) Negative Urine Ketones Negative Urine Blood Negative Urine Nitrite Negative Urine Bilirubin Negative Urine Urobilinogen Negative Ur Leukocyte Esterase Negative Ur Random Sodium 52 Ur Random Potassium 20.9 Ur Random Chloride 61 Urine Creatinine Blood Type Antibody Screen 08/23/16 08/23/16 08/23/16 17:15 17:15 17:15 WBC 23.2 H RBC 3.61 L Hgb 11.1 L Hct 33.9 L MCV 94.0 MCHC 32.7 RDW 15.1 Plt Count 252 MPV 9.2 Neutrophils % 85.5 H Lymphocytes % 4.0 L D Monocytes % 10.1 Eosinophils % 0.1 Basophils % 0.3 Band Neutrophils Platelet Estimate Platelet Comment INR 1.29 H PTT (Actin FS) 35.8 H VBG pH POC VBG pCO2 POC VBG pO2 Mixed VBG HCO3 Sodium 138 Potassium 4.3 Chloride 101 Carbon Dioxide 26 Anion Gap 11 BUN 77 H Creatinine 2.8 H Creat Clearance w eGFR 21.70 Random Glucose 103 Lactic Acid Calcium 8.1 L Total Bilirubin 0.6 D AST 16 ALT 15 Alkaline Phosphatase 51 Creatine Kinase Troponin I B-Natriuretic Peptide Total Protein 5.6 L Albumin 2.6 L Urine Color Urine Appearance Urine pH Ur Specific [place] Urine Protein Urine Glucose (UA) Urine Ketones Urine Blood Urine Nitrite Urine Bilirubin Urine Urobilinogen Ur Leukocyte Esterase Ur Random Sodium Ur Random Potassium Ur Random Chloride Urine Creatinine Blood Type Antibody Screen 08/23/16 08/23/16 08/24/16 17:15 17:15 05:35 WBC 14.7 H D RBC 3.74 L Hgb 11.4 L Hct 35.5 MCV 94.9 MCHC 32.2 RDW 15.3 Plt Count 253 MPV 9.5 Neutrophils % Lymphocytes % Monocytes % Eosinophils % Basophils % Band Neutrophils Platelet Estimate Platelet Comment INR PTT (Actin FS) VBG pH POC VBG pCO2 POC VBG pO2 Mixed VBG HCO3 Sodium Potassium Chloride Carbon Dioxide Anion Gap BUN Creatinine Creat Clearance w eGFR Random Glucose Lactic Acid 1.028 Cancelled Calcium Total Bilirubin AST ALT Alkaline Phosphatase Creatine Kinase Troponin I B-Natriuretic Peptide Total Protein Albumin Urine Color Urine Appearance Urine pH Ur Specific [place] Urine Protein Urine Glucose (UA) Urine Ketones Urine Blood Urine Nitrite Urine Bilirubin Urine Urobilinogen Ur Leukocyte Esterase Ur Random Sodium Ur Random Potassium Ur Random Chloride Urine Creatinine Blood Type Antibody Screen 08/24/16 08/24/16 05:35 05:35 WBC RBC Hgb Hct MCV MCHC RDW Plt Count MPV Neutrophils % Lymphocytes % Monocytes % Eosinophils % Basophils % Band Neutrophils Platelet Estimate Platelet Comment INR 1.28 H PTT (Actin FS) 31.9 VBG pH POC VBG pCO2 POC VBG pO2 Mixed VBG HCO3 Sodium 141 Potassium 4.4 Chloride 104 Carbon Dioxide 25 Anion Gap 12 BUN 74 H Creatinine 2.5 H Creat Clearance w eGFR Random Glucose 82 D Lactic Acid Calcium 8.8 Total Bilirubin AST ALT Alkaline Phosphatase Creatine Kinase 92 Troponin I 0.14 H B-Natriuretic Peptide Total Protein Albumin Urine Color Urine Appearance Urine pH Ur Specific [place] Urine Protein Urine Glucose (UA) Urine Ketones Urine Blood Urine Nitrite Urine Bilirubin Urine Urobilinogen Ur Leukocyte Esterase Ur Random Sodium Ur Random Potassium Ur Random Chloride Urine Creatinine Blood Type Antibody Screen IMP: Sepsis due to suspected LLL CAP CHF AICD about 5 years ago CAD CABGx4 in 2009 CKD stage 3 Prostate CA (s/p radiation) Afib on Pradxa. PLAN: ABX Monitor off IVF O2 as needed Follow cultures Pradaxa Strict I&O Floor Dr Balbuena
--- NOTE | 2016-08-24 09:52 | PN ---
Progress Note, Physician History of Present Illness: Awake, alert OOB in chair Appears comfortable on RA Reports occasional cough, white sputum Abdominal pain with cough Temps down. Afebrile WBC improved - Current Medication List Current Medications: Active Medications Acetaminophen (Tylenol -) 1,000 mg PO Q6H PRN PRN Reason: FEVER OR PAIN Allopurinol (Zyloprim -) 100 mg PO DAILY [facility] Aspirin (Ecotrin -) 81 mg PO DAILY [facility] Atorvastatin Calcium (Lipitor -) 10 mg PO HS [facility] Last Admin: 08/23/16 21:51 Dose: 10 mg Ceftriaxone Sodium (Rocephin 2gm Ivpb (Pre-Docked)) 2 gm IVPB DAILY [facility] PRN Reason: Protocol Dabigatran (Pradaxa -) 75 mg PO BID [facility] Last Admin: 08/23/16 22:00 Dose: 75 mg Folic Acid (Folic Acid -) 1 mg PO DAILY [facility] Azithromycin 250 mg/ Dextrose 250 mls @ 250 mls/hr IVPB DAILY [facility] Sodium Chloride (Normal Saline -) 1,000 mls @ 50 mls/hr IV ASDIR [facility] Stop: 08/24/16 12:29 Last Admin: 08/23/16 17:12 Dose: 50 mls/hr Metoprolol Tartrate (Lopressor -) 12.5 mg PO BID [facility] Last Admin: 08/23/16 21:52 Dose: 12.5 mg Non-Formulary Medication (Sodium Polystyrene Sulfonate [Kionex]) 454 gm PO DAILY [facility] Tamsulosin HCl (Flomax -) 0.4 mg PO DAILY [facility] - Objective Vital Signs: Vital Signs Temperature 98.2 F 08/24/16 06:00 Pulse Rate 64 08/24/16 07:00 Respiratory Rate 13 08/24/16 07:00 Blood Pressure 141/65 08/24/16 07:00 O2 Sat by Pulse Oximetry (%) 98 08/23/16 20:06 Constitutional: Yes: No Distress Eyes: Yes: Conjunctiva Clear Cardiovascular: Yes: Regular Rate and Rhythm, S1, S2 Respiratory: Yes: Diminished Gastrointestinal: Yes: Normal Bowel Sounds, Soft, Abdomen, Obese. No: Tenderness Edema: Yes Edema: LLE: 1+, RLE: 1+ Labs: CBC, BMP 08/24/16 05:35 08/24/16 05:35 INR, PTT INR 1.28 (0.82-1.09) H 08/24/16 05:35 Assessment/Plan Bilateral community acquired v atypical pneumonia CHF Fever/ leukocytosis- improved CKD Await cultures Continue empiric ceftriaxone/ zithromax
[2016-08-24] MEDS ORDERED: PT OWN MED DRAWER 7, Y5N ONE (09:55)
[2016-08-24] MEDS: METOPROLOL TARTRATE 25 MG TABLET (FP) PO SCH (09:58)
[2016-08-24] MEDS: DABIGATRAN ETEXILATE MESYLATE 75 MG CAPSULE PO SCH ×2 (09:59→22:40)
[2016-08-24] MEDS ORDERED: CEFTRIAXONE 50 ML IVPB SCH (10:00)
[2016-08-24] MEDS ORDERED: SODIUM POLYSTYRENE SULFONATE PO SCH (10:00)
[2016-08-24] MEDS ORDERED: FOLIC ACID 1 MG TABLET (FP) PO SCH (10:00)
[2016-08-24] MEDS ORDERED: ASPIRIN COATED 81 MG TABLET.EC PO SCH (10:00)
[2016-08-24] MEDS ORDERED: cefTRIAXone 2 GM/100 ML BAG (PRE-DOCKED) IVPB SCH (10:00)
[2016-08-24] MEDS ORDERED: TAMSULOSIN HCL 0.4 MG CAP.ER.24H (FP) PO SCH (10:00)
[2016-08-24] MEDS ORDERED: ALLOPURINOL 100 MG TABLET (FP) PO SCH (10:00)
[2016-08-24] MEDS: AZITHROMYCIN IVPB 250 MG in DEXTROSE 5%-WATER - 250 ML IVPB SCH (10:55)
--- NOTE | 2016-08-24 11:23 | EKG ---
Test Reason : Blood Pressure : / mmHG Vent. Rate : 065 BPM Atrial Rate : 220 BPM P-R Int : 000 ms QRS Dur : 162 ms QT Int : 486 ms P-R-T Axes : 000 205 058 degrees QTc Int : 505 ms Ventricular-paced rhythm WITH PREMATURE VENTRICULAR OR ABERRANTLY CONDUCTED COMPLEXES ABNORMAL ECG NO PREVIOUS ECGS AVAILABLE Confirmed by DELLA BRIGHT, CRISTOBAL ([id number]) on 08/24/2016 11:23:12 AM Referred By: Confirmed By:CRISTOBAL HULL MD
--- NOTE | 2016-08-24 14:27 | PN ---
Progress Note (short form) - Note Progress Note: Subjective: The patient was seen and examined at the bedside in the ICU, he states he is feeling better today, however he is experiencing pleuritic type chest pain when he coughs WBC trended down 23.2->14.7 BP improving Current Medications Generic Name Dose Route Start Last Admin Trade Name Freq PRN Reason Stop Dose Admin Acetaminophen 1,000 mg 08/23/16 14:08 Tylenol - PO Q6H PRN FEVER OR PAIN Allopurinol 100 mg 08/24/16 10:00 08/24/16 09:58 Zyloprim - PO 100 mg DAILY [facility] Administration Aspirin 81 mg 08/24/16 10:00 08/24/16 09:58 Ecotrin - PO 81 mg DAILY [facility] Administration Atorvastatin Calcium 10 mg 08/23/16 22:00 08/23/16 21:51 Lipitor - PO 10 mg HS [facility] Administration Ceftriaxone Sodium 2 gm 08/24/16 10:00 08/24/16 09:59 Rocephin 2gm Ivpb (Pre-Docked) IVPB 2 gm DAILY [facility] Administration Protocol Dabigatran 75 mg 08/23/16 22:00 08/24/16 09:59 Pradaxa - PO 75 mg BID [facility] Administration Folic Acid 1 mg 08/24/16 10:00 08/24/16 09:58 Folic Acid - PO 1 mg DAILY [facility] Administration Azithromycin 250 mg/ Dextrose 250 mls @ 250 mls/hr 08/24/16 10:00 08/24/16 10: 55 IVPB 250 mls/hr DAILY [facility] Administration Metoprolol Tartrate 12.5 mg 08/23/16 22:00 08/24/16 09:58 Lopressor - PO 12.5 mg BID [facility] Administration Non-Formulary Medication 454 gm 08/24/16 10:00 Sodium Polystyrene Sulfonate [Kionex] PO DAILY [facility] Tamsulosin HCl 0.4 mg 08/24/16 10:00 08/24/16 09:57 Flomax - PO 0.4 mg DAILY [facility] Administration Objective: Vital Signs Period Temp Pulse Resp BP Sys/Hicks Pulse Ox Last 24 Hr 97.7 F-98.9 F 60-65 12-21 95-141/50-75 97-99 Physical Exam: General: NAD, A&Ox3, hard of hearing Lungs: Bibasilar crackles L>R Heart: RRR, S1S2 Abd: Soft, non-tender, non-distended. Normoactive bowel sounds Ext: Warm, well-perfused. 2+ DP/PT bilaterally Neuro: CN 2-12 intact CBCD WBC 14.7 K/mm3 (4.0-10.0) H D 08/24/16 05:35 RBC 3.74 M/mm3 (4.00-5.60) L 08/24/16 05:35 Hgb 11.4 GM/dL (11.7-16.9) L 08/24/16 05:35 Hct 35.5 % (35.4-49) 08/24/16 05:35 MCV 94.9 fl (80-96) 08/24/16 05:35 MCHC 32.2 g/dl (32.0-35.9) 08/24/16 05:35 RDW 15.3 % (11.9-15.9) 08/24/16 05:35 Plt Count 253 K/MM3 (134-434) 08/24/16 05:35 MPV 9.5 fl (7.5-11.1) 08/24/16 05:35 CMP Sodium 141 mmol/L (136-145) 08/24/16 05:35 Potassium 4.4 mmol/L (3.5-5.1) 08/24/16 05:35 Chloride 104 mmol/L (98-107) 08/24/16 05:35 Carbon Dioxide 25 mmol/L (21-32) 08/24/16 05:35 Anion Gap 12 (8-16) 08/24/16 05:35 BUN 74 mg/dL (7-18) H 08/24/16 05:35 Creatinine 2.5 mg/dL (0.7-1.3) H 08/24/16 05:35 Creat Clearance w eGFR 21.70 (>60) 08/23/16 17:15 Random Glucose 82 mg/dL (74-106) D 08/24/16 05:35 Calcium 8.8 mg/dL (8.5-10.1) 08/24/16 05:35 Total Bilirubin 0.6 mg/dL (0.2-1.0) D 08/23/16 17:15 AST 16 U/L (15-37) 08/23/16 17:15 ALT 15 U/L (12-78) 08/23/16 17:15 Alkaline Phosphatase 51 U/L (45-117) 08/23/16 17:15 Total Protein 5.6 g/dl (6.4-8.2) L 08/23/16 17:15 Albumin 2.6 g/dl (3.4-5.0) L 08/23/16 17:15 CARDIAC ENZYMES Creatine Kinase 92 IU/L (39-308) 08/24/16 05:35 Troponin I 0.14 ng/ml (0.00-0.05) H 08/24/16 05:35 Microbiology 08/23/16 10:43 Blood - Peripheral Venous Blood Culture - Preliminary NO GROWTH OBTAINED AFTER 24 HOURS, INCUBATION TO CONTINUE FOR 4 DAYS. 08/23/16 10:45 Blood - Peripheral Venous Blood Culture - Preliminary NO GROWTH OBTAINED AFTER 24 HOURS, INCUBATION TO CONTINUE FOR 4 DAYS. 08/23/16 11:15 Urine - Urine Clean Catch Urine Culture - Final 08/23/16 10:45 Nasopharyngeal Swab Influenza Types A,B Antigen (SUSAN) - Final 08/23/16 10:45 Nasopharyngeal Swab - Final Assessment: This is an 85 year old male with PMHx of CHF, AL (1992), CVA 2006, AICD about 5 years ago, CAD (s/p CABG x4 in 2005), CKD stage 3, prostate cancer (s/p radiation), a.fib (on Pradaxa) presented to the ED with cough x2 days. Plan: 1) ID: Severe sepsis 2/2 suspected LLL community acquired pneumonia - Tmax 101.7 on 08/23 - WBC trending down 25.1->23.2->14.7 - Hypotension improving - Continue empiric Azithromycin and Ceftriaxone (08/23- ) - Appreciate ID consult 2) Cardiology: Elevated troponins - Mildly elevated in the setting of hypotension, likely demand ischemia - F/u ECHO - F/u cardiology consult Hypotension - Likely 2/2 sepsis vs. lasix administration from ED - Has improved since yesterday - Hold Lopressor CAD - Continue Lipitor - Continue ASA Chronic CHF - Elevated BNP - Unknown diastolic vs. systolic - Hold Lasix for now given hypotension HTN - Hold hydralazine in setting of hypotension A.fib - Continue Pradaxa AICD 3) : CKD stage 3 - F/u outpatient records for baseline kidney function - Continue to monitor - Appreciate nephrology consult 4) F/E/N: - Monitor electrolytes - Cholesterol/fat controlled diet 5) Prophylaxis: - On Pradaxa - PT 6) Dispo: - Requires continued inpatient care CODE STATUS: FULL CODE Visit type - Emergency Visit Emergency Visit: Yes ED Registration Date: 08/23/16 Care time: The patient presented to the Emergency Department on the above date and was hospitalized for further evaluation of their emergent condition. - New Patient This patient is new to me today: Yes Date on this admission: 08/24/16 - Critical Care Critical Care patient: No
--- NOTE | 2016-08-24 18:45 | PN ---
Progress Note, Physician History of Present Illness: Pt seen and examined at bedside. He is out of bed to chair. He is awake and alert. - Current Medication List Current Medications: Active Medications Acetaminophen (Tylenol -) 1,000 mg PO Q6H PRN PRN Reason: FEVER OR PAIN Allopurinol (Zyloprim -) 100 mg PO DAILY [facility] Last Admin: 08/24/16 09:58 Dose: 100 mg Aspirin (Ecotrin -) 81 mg PO DAILY [facility] Last Admin: 08/24/16 09:58 Dose: 81 mg Atorvastatin Calcium (Lipitor -) 10 mg PO HS [facility] Last Admin: 08/23/16 21:51 Dose: 10 mg Ceftriaxone Sodium (Rocephin 2gm Ivpb (Pre-Docked)) 2 gm IVPB DAILY [facility] PRN Reason: Protocol Last Admin: 08/24/16 09:59 Dose: 2 gm Dabigatran (Pradaxa -) 75 mg PO BID [facility] Last Admin: 08/24/16 09:59 Dose: 75 mg Folic Acid (Folic Acid -) 1 mg PO DAILY [facility] Last Admin: 08/24/16 09:58 Dose: 1 mg Azithromycin 250 mg/ Dextrose 250 mls @ 250 mls/hr IVPB DAILY [facility] Last Admin: 08/24/16 10:55 Dose: 250 mls/hr Non-Formulary Medication (Sodium Polystyrene Sulfonate [Kionex]) 454 gm PO DAILY [facility] Tamsulosin HCl (Flomax -) 0.4 mg PO DAILY [facility] Last Admin: 08/24/16 09:57 Dose: 0.4 mg - Objective Vital Signs: Vital Signs Temperature 98.3 F 08/24/16 18:00 Pulse Rate 61 08/24/16 18:00 Respiratory Rate 16 08/24/16 18:00 Blood Pressure 147/59 08/24/16 18:00 O2 Sat by Pulse Oximetry (%) 97 08/24/16 10:00 Constitutional: Yes: Calm Eyes: Yes: Conjunctiva Clear HENT: Yes: Atraumatic Cardiovascular: Yes: S1, S2 Respiratory: Yes: Rhonchi Gastrointestinal: Yes: Soft Genitourinary: Yes: [place] Present Extremities: Yes: WNL Edema: Yes Edema: LLE: Trace, RLE: Trace Neurological: Yes: Oriented Psychiatric: Yes: Oriented Labs: CBC, BMP 08/24/16 05:35 08/24/16 05:35 INR, PTT INR 1.28 (0.82-1.09) H 08/24/16 05:35 Problem List - Problems (1) Sepsis Code(s): A41.9 - SEPSIS, UNSPECIFIED ORGANISM Qualifiers: Sepsis type: sepsis due to unspecified organism Qualified Code(s): A41.9 - Sepsis, unspecified organism (2) CKD (chronic kidney disease) stage 3, GFR 30-59 ml/min Code(s): N18.3 - CHRONIC KIDNEY DISEASE, STAGE 3 (MODERATE) (3) CAD (coronary artery disease) Code(s): I25.10 - ATHSCL HEART DISEASE OF [place] CORONARY ARTERY W/O ANG PCTRS (4) Hx of CABG Code(s): Z95.1 - PRESENCE OF AORTOCORONARY BYPASS GRAFT (5) Atrial fibrillation Code(s): I48.91 - UNSPECIFIED ATRIAL FIBRILLATION (6) Prostate CA Code(s): C61 - MALIGNANT NEOPLASM OF PROSTATE Assessment/Plan Current Medications Generic Name Dose Route Start Last Admin Trade Name Freq PRN Reason Stop Dose Admin Acetaminophen 1,000 mg 08/23/16 14:08 Tylenol - PO Q6H PRN FEVER OR PAIN Allopurinol 100 mg 08/24/16 10:00 08/24/16 09:58 Zyloprim - PO 100 mg DAILY [facility] Administration Aspirin 81 mg 08/24/16 10:00 08/24/16 09:58 Ecotrin - PO 81 mg DAILY [facility] Administration Atorvastatin Calcium 10 mg 08/23/16 22:00 08/23/16 21:51 Lipitor - PO 10 mg HS [facility] Administration Ceftriaxone Sodium 2 gm 08/24/16 10:00 08/24/16 09:59 Rocephin 2gm Ivpb (Pre-Docked) IVPB 2 gm DAILY [facility] Administration Protocol Dabigatran 75 mg 08/23/16 22:00 08/24/16 09:59 Pradaxa - PO 75 mg BID [facility] Administration Folic Acid 1 mg 08/24/16 10:00 08/24/16 09:58 Folic Acid - PO 1 mg DAILY [facility] Administration Azithromycin 250 mg/ Dextrose 250 mls @ 250 mls/hr 08/24/16 10:00 08/24/16 10: 55 IVPB 250 mls/hr DAILY [facility] Administration Non-Formulary Medication 454 gm 08/24/16 10:00 Sodium Polystyrene Sulfonate [Kionex] PO DAILY [facility] Tamsulosin HCl 0.4 mg 08/24/16 10:00 08/24/16 09:57 Flomax - PO 0.4 mg DAILY [facility] Administration Impression 1. CKD stage 3 with likely acute component as gfr here is 22 2. Sepsis 3. PNA 4. CAD 5. a-fib 6. hematuria with bladder mass 7. hx prostate cancer 8. hyperlipidemia 9. gout Plan - renal function is improving - decrease rate of fluids and stop of BP is stable - repeat labs in am - d/c breana - case discussed with pt and family - discussed with ICU team - will follow Dr Perez
--- NOTE | 2016-08-24 20:14 | CONSULT ---
Consult - text type - Consultation Consultation Note: Cardiology 85 yo M with significant PMHx of CHF(s/p AICD), CAD(s/p CABG 2009), CKD stage 3 , prostate ca(s/p radiation), and Afib(on pradaxa) presents with two day history of productive cough, dyspnea and weakness. PAST MEDICAL HISTORY: CHF, AICD, CAD, CABG, CKD, BPH, AFib PAST SURGICAL HISTORY: Social History: NA Allergies: NA PE: vitals stable normal cardiac exam decreased breath sounds abdomen soft trace leg edema Impression: sepsis pneumonia maybe CHF afib, v-paced borderline troponins, BNP 16,000 CRF very precarious volume status, as had an episode of hypotension, due to lasix Rec: continue RX Echocardiogram cautious diuresis, as per nephrology
[2016-08-24] MEDS: ATORVASTATIN CA 10 MG TABLET (FP) PO SCH (21:54)
[2016-08-25] MEDS ORDERED: ACETAMINOPHEN 500 MG TABLET (FP) PO PRN (08:27)
[2016-08-25 08:29] LABS: MCH 31.7 pg (25.7-33.7); MCHC 33.5 g/dl (32.0-35.9); MEAN CELL VOLUME 94.7 fl (80-96); MEAN PLT VOLUME 9.1 fl (7.5-11.1); PLATELET COUNT 246 K/MM3 (134-434); RDW 15.1 % (11.9-15.9); WHITE BLOOD COUNT 12.1 K/mm3 (4.0-10.0)
[2016-08-25 09:13] LABS: COCKROFT - GAULT 30.5; CREATININE 2.2 mg/dL (0.7-1.3)
--- NOTE | 2016-08-25 09:56 | PN ---
Progress Note, Physician History of Present Illness: Pt seen and examined at bedside. He is awake and alert. He says he feels better today. - Current Medication List Current Medications: Active Medications Acetaminophen (Tylenol -) 1,000 mg PO Q6H PRN PRN Reason: FEVER OR PAIN Allopurinol (Zyloprim -) 100 mg PO DAILY [facility] Aspirin (Ecotrin -) 81 mg PO DAILY [facility] Atorvastatin Calcium (Lipitor -) 10 mg PO HS [facility] Ceftriaxone Sodium (Rocephin 2gm Ivpb (Pre-Docked)) 2 gm IVPB DAILY [facility] PRN Reason: Protocol Dabigatran (Pradaxa -) 75 mg PO BID [facility] Folic Acid (Folic Acid -) 1 mg PO DAILY [facility] Azithromycin 250 mg/ Dextrose 250 mls @ 250 mls/hr IVPB DAILY [facility] Sodium Polystyrene Sulf Pwd ( 1tablespoon) 1 each PO HS [facility] Tamsulosin HCl (Flomax -) 0.4 mg PO DAILY@0830 [facility] - Objective Vital Signs: Vital Signs Temperature 99.9 F H 08/25/16 06:00 Pulse Rate 60 08/25/16 06:00 Respiratory Rate 18 08/25/16 06:00 Blood Pressure 123/58 08/25/16 06:00 O2 Sat by Pulse Oximetry (%) 95 08/24/16 21:00 Constitutional: Yes: Calm Eyes: Yes: Conjunctiva Clear HENT: Yes: Atraumatic Neck: Yes: Supple Cardiovascular: Yes: S1, S2 Respiratory: Yes: On Nasal O2, Rhonchi Gastrointestinal: Yes: Soft Genitourinary: Yes: WNL Musculoskeletal: Yes: WNL Edema: Yes Edema: LLE: Trace, RLE: Trace Neurological: Yes: Oriented Psychiatric: Yes: Oriented Labs: CBC, BMP 08/25/16 07:05 08/25/16 07:05 INR, PTT INR 1.28 (0.82-1.09) H 08/24/16 05:35 Problem List - Problems (1) Sepsis Code(s): A41.9 - SEPSIS, UNSPECIFIED ORGANISM Qualifiers: Sepsis type: sepsis due to unspecified organism Qualified Code(s): A41.9 - Sepsis, unspecified organism (2) CKD (chronic kidney disease) stage 3, GFR 30-59 ml/min Code(s): N18.3 - CHRONIC KIDNEY DISEASE, STAGE 3 (MODERATE) (3) CAD (coronary artery disease) Code(s): I25.10 - ATHSCL HEART DISEASE OF [place] CORONARY ARTERY W/O ANG PCTRS (4) Hx of CABG Code(s): Z95.1 - PRESENCE OF AORTOCORONARY BYPASS GRAFT (5) Atrial fibrillation Code(s): I48.91 - UNSPECIFIED ATRIAL FIBRILLATION (6) Prostate CA Code(s): C61 - MALIGNANT NEOPLASM OF PROSTATE Assessment/Plan Current Medications Generic Name Dose Route Start Last Admin Trade Name Freq PRN Reason Stop Dose Admin Acetaminophen 1,000 mg 08/25/16 08:27 Tylenol - PO Q6H PRN FEVER OR PAIN Allopurinol 100 mg 08/25/16 10:00 Zyloprim - PO DAILY [facility] Aspirin 81 mg 08/25/16 10:00 Ecotrin - PO DAILY [facility] Atorvastatin Calcium 10 mg 08/25/16 22:00 Lipitor - PO HS [facility] Ceftriaxone Sodium 2 gm 08/25/16 10:00 Rocephin 2gm Ivpb (Pre-Docked) IVPB DAILY [facility] Protocol Dabigatran 75 mg 08/25/16 10:00 Pradaxa - PO BID [facility] Folic Acid 1 mg 08/25/16 10:00 Folic Acid - PO DAILY [facility] Azithromycin 250 mg/ Dextrose 250 mls @ 250 mls/hr 08/25/16 10:00 IVPB DAILY [facility] Sodium Polystyrene 1 each 08/25/16 22:00 Sulf Pwd ( PO 1tablespoon) HS [facility] Tamsulosin HCl 0.4 mg 08/25/16 09:15 Flomax - PO DAILY@0830 [facility] Impression 1. CKD stage 3 with likely acute component as gfr here is 22 2. Sepsis 3. PNA 4. CAD 5. a-fib 6. hematuria with bladder mass 7. hx prostate cancer 8. hyperlipidemia 9. gout Plan - renal function continues to improve - stop fluids - monitor BP - case discussed with hospitalist - case discussed with pt and family - will follow Dr Perez
[2016-08-25] MEDS: FOLIC ACID 1 MG TABLET (FP) PO SCH (10:27)
[2016-08-25] MEDS: TAMSULOSIN HCL 0.4 MG CAP.ER.24H (FP) PO SCH (10:27)
[2016-08-25] MEDS: ALLOPURINOL 100 MG TABLET (FP) PO SCH (10:27)
[2016-08-25] MEDS: ASPIRIN COATED 81 MG TABLET.EC PO SCH (10:28)
[2016-08-25] MEDS ORDERED: PT OWN MED DRAWER 7, Y5N ONE ×2 (10:29→21:01)
[2016-08-25] MEDS: DABIGATRAN ETEXILATE MESYLATE 75 MG CAPSULE PO SCH ×2 (10:30→21:02)
[2016-08-25] MEDS: cefTRIAXone 2 GM/100 ML BAG (PRE-DOCKED) IVPB SCH (10:30)
[2016-08-25] MEDS: AZITHROMYCIN IVPB 250 MG in DEXTROSE 5%-WATER - 250 ML IVPB SCH (10:30)
--- NOTE | 2016-08-25 10:40 | PN ---
Physical Exam: SUBJECTIVE: Patient seen and examined. He says he feels good. He denies oxygen use at time. He does not have sob or chest pain, and tolerating meals. at bedside Events: - Low grade fever this AM - Urinating freely - OOB-> chair, ambulating the room OBJECTIVE: Vital Signs Period Temp Pulse Resp BP Sys/Hicks Pulse Ox Last 24 Hr 97.8 F-99.9 F 60-61 12-18 99-147/45-75 95 PE Neuro: alert, awake, cn 2-12intact Pulm: scattered basilar crackles, + nc CV: s1 s2 rrr no mrg Abd: protuberant abd, LLQ discomfort, + bs, soft Ext: b/l + 2 pitting edema, skin in tact Laboratory Results - last 24 hr 08/25/16 08/25/16 07:05 07:05 WBC 12.1 H RBC 3.51 L Hgb 11.1 L Hct 33.3 L MCV 94.7 MCHC 33.5 RDW 15.1 Plt Count 246 MPV 9.1 Sodium 141 Potassium 4.0 Chloride 106 Carbon Dioxide 24 Anion Gap 11 BUN 62 H Creatinine 2.2 H Random Glucose 98 Calcium 8.0 L Active Medications Generic Name Dose Route Start Last Admin Trade Name Freq PRN Reason Stop Dose Admin Acetaminophen 1,000 mg 08/25/16 08:27 Tylenol - PO Q6H PRN FEVER OR PAIN Allopurinol 100 mg 08/25/16 10:00 08/25/16 10:27 Zyloprim - PO 100 mg DAILY [facility] Administration Aspirin 81 mg 08/25/16 10:00 08/25/16 10:28 Ecotrin - PO 81 mg DAILY [facility] Administration Atorvastatin Calcium 10 mg 08/25/16 22:00 Lipitor - PO HS [facility] Ceftriaxone Sodium 2 gm 08/25/16 10:00 08/25/16 10:30 Rocephin 2gm Ivpb (Pre-Docked) IVPB 2 gm DAILY [facility] Administration Protocol Dabigatran 75 mg 08/25/16 10:00 08/25/16 10:30 Pradaxa - PO 75 mg BID [facility] Administration Folic Acid 1 mg 08/25/16 10:00 08/25/16 10:27 Folic Acid - PO 1 mg DAILY [facility] Administration Azithromycin 250 mg/ Dextrose 250 mls @ 250 mls/hr 08/25/16 10:00 08/25/16 10: 30 IVPB 250 mls/hr DAILY [facility] Administration Sodium Polystyrene 1 each 08/25/16 22:00 Sulf Pwd ( PO 1tablespoon) HS [facility] Tamsulosin HCl 0.4 mg 08/25/16 09:15 08/25/16 10:27 Flomax - PO 0.4 mg DAILY@0830 [facility] Administration Assessment: 85 year old male with PMHx of CHF, NC (1992), CVA 2006, AICD about 5 years ago, CAD (s/p CABG x4 in 2005), CKD stage 3, prostate cancer (s/p radiation), a.fib (on Pradaxa) admitted with PNA and cough. Plan: 1. Severe sepsis 2/2 suspected LLL community acquired pneumonia - Leukocytosis down tending - Continue azithromycin and Ceftriaxone (day 3) 2. Elevated troponins - Mildly elevated, likely demand ischemia d/t hypotension - ECHO tomorrow 3. Hypotension - Likely 2/2 sepsis vs. lasix administration from ED - Resolved - Hold Lopressor 4. Chronic CHF - Unknown diastolic vs. systolic - Restart lasix tomorrow, 40mg BID 5. CAD - Continue Lipitor - Continue ASA 6. HTN - Hold hydralazine 7. A.fib s/p AICD - Continue Pradaxa 8. Acute on CKD stage 3 - Improving - Fluids discontinued - Start lasix tomorrow 9. Prostate Ca - Flomax daily 10. Prophylaxis - On Pradaxa - PT Visit type - Emergency Visit Emergency Visit: Yes ED Registration Date: 08/23/16 Care time: The patient presented to the Emergency Department on the above date and was hospitalized for further evaluation of their emergent condition. - New Patient This patient is new to me today: Yes Date on this admission: 08/25/16 - Critical Care Critical Care patient: No
--- NOTE | 2016-08-25 13:20 | PN ---
Progress Note (short form) - Note Progress Note: Overall feels better. Less congested cough. No CP or SOB. Pleuritic type chest discomfort has improved. No fever. Intake & Output 08/22/16 08/23/16 08/24/16 08/25/16 23:59 23:59 23:59 23:59 Intake Total 460 2270 600 Output Total 2000 Balance 460 270 600 Weight 189 lb 186 lb 1.6 oz 190 lb 4 oz Last Vital Signs Temp Pulse Resp BP Pulse Ox 99.9 F H 60 18 123/58 95 08/25/16 06:00 08/25/16 06:00 08/25/16 06:00 08/25/16 06:00 08/24/16 21:00 Active Medications Acetaminophen (Tylenol -) 1,000 mg PO Q6H PRN PRN Reason: FEVER OR PAIN Allopurinol (Zyloprim -) 100 mg PO DAILY [facility] Last Admin: 08/25/16 10:27 Dose: 100 mg Aspirin (Ecotrin -) 81 mg PO DAILY [facility] Last Admin: 08/25/16 10:28 Dose: 81 mg Atorvastatin Calcium (Lipitor -) 10 mg PO HS [facility] Ceftriaxone Sodium (Rocephin 2gm Ivpb (Pre-Docked)) 2 gm IVPB DAILY [facility] PRN Reason: Protocol Last Admin: 08/25/16 10:30 Dose: 2 gm Dabigatran (Pradaxa -) 75 mg PO BID [facility] Last Admin: 08/25/16 10:30 Dose: 75 mg Folic Acid (Folic Acid -) 1 mg PO DAILY [facility] Last Admin: 08/25/16 10:27 Dose: 1 mg Furosemide (Lasix -) 40 mg PO BID@0600,1400 [facility] Azithromycin 250 mg/ Dextrose 250 mls @ 250 mls/hr IVPB DAILY [facility] Last Admin: 08/25/16 10:30 Dose: 250 mls/hr Sodium Polystyrene Sulf Pwd ( 1tablespoon) 1 each PO [facility] Tamsulosin HCl (Flomax -) 0.4 mg PO DAILY@0830 [facility] Last Admin: 08/25/16 10:27 Dose: 0.4 mg General Appearance: Yes: Awake and alert, NAD HEENT: positive: (-) Icterus Neck: positive: Supple Respiratory/Chest: positive: Bibasilar crackles Left > Right negative: (-) wheezing, Accessory Muscle Use Cardiovascular: positive: Edema (bilateral 2+ LE edema to level of knee). negative: JVD, Murmur Vascular Pulses: Dorsalis-Pedis (R): 2+, Doralis-Pedis (L): 2+ Gastrointestinal/Abdominal: positive: (+) Bowel Sounds, Flat, Soft Musculoskeletal: positive: Normal Inspection. negative: CVA Tenderness Extremity: positive: Normal Inspection, Normal Range of Motion, Pedal Edema. negative: Calf Tenderness, Erythema Laboratory Results - last 24 hr 08/25/16 08/25/16 07:05 07:05 WBC 12.1 H RBC 3.51 L Hgb 11.1 L Hct 33.3 L MCV 94.7 MCHC 33.5 RDW 15.1 Plt Count 246 MPV 9.1 Sodium 141 Potassium 4.0 Chloride 106 Carbon Dioxide 24 Anion Gap 11 BUN 62 H Creatinine 2.2 H Random Glucose 98 Calcium 8.0 L IMP: Sepsis due to suspected LLL CAP CHF AICD about 5 years ago CAD CABGx4 in 2009 CKD stage 3 Prostate CA (s/p radiation) Afib on Pradxa. PLAN: ABX Monitor off IVF O2 as needed Follow cultures Pradaxa Strict I&O Ambulate Dr Balbuena
[2016-08-25] MEDS ORDERED: SODIUM POLYSTYRENE SULF PO SCH (22:00)
[2016-08-25] MEDS ORDERED: ATORVASTATIN CA 10 MG TABLET (FP) PO SCH (22:00)
[2016-08-26] MEDS: FUROSEMIDE 40 MG TABLET (FP) PO SCH ×2 (06:34→13:39)
[2016-08-26 07:18] LABS: BASOPHIL 1.1 % (0-2.0); MCH 31.4 pg (25.7-33.7); MCHC 33.3 g/dl (32.0-35.9); MEAN CELL VOLUME 94.3 fl (80-96); MEAN PLT VOLUME 9.2 fl (7.5-11.1); NEUTROPHILS 68.7 % (42.8-82.8); PLATELET COUNT 260 K/MM3 (134-434); RDW 14.8 % (11.9-15.9); WHITE BLOOD COUNT 9.6 K/mm3 (4.0-10.0)
[2016-08-26 07:36] LABS: CALCIUM 8.4 mg/dL (8.5-10.1); MAGNESIUM 1.9 mg/dL (1.8-2.4)
[2016-08-26 07:37] LABS: CREATININE 2.1 mg/dL (0.7-1.3)
[2016-08-26 07:50] LABS: COCKROFT - GAULT 32.1
--- NOTE | 2016-08-26 08:44 | PN ---
Progress Note (short form) - Note Progress Note: day #4 antibiotics (started 08/23) doing well no fevers less cough good appetite Vital Signs Period Temp Pulse Resp BP Sys/Hicks Pulse Ox Last 24 Hr 97.5 F-99.4 F 60-63 16-18 121-144/57-71 94-95 cor-rrr lungs bibasilar crackles abd soft,nt ext +edema (unchanged) CBC, BMP 08/26/16 05:41 08/26/16 05:41 Microbiology 08/24/16 22:45 Sputum - Expectorated Gram Stain - Final 08/23/16 17:00 Urine - Urine [place] Urine Culture - Final NO GROWTH OBTAINED 08/23/16 10:43 Blood - Peripheral Venous Blood Culture - Preliminary NO GROWTH OBTAINED AFTER 48 HOURS, INCUBATION TO CONTINUE FOR 3 DAYS. 08/23/16 10:45 Blood - Peripheral Venous Blood Culture - Preliminary NO GROWTH OBTAINED AFTER 48 HOURS, INCUBATION TO CONTINUE FOR 3 DAYS. 08/23/16 11:15 Urine - Urine Clean Catch Urine Culture - Final 08/23/16 10:45 Nasopharyngeal Swab Influenza Types A,B Antigen (SUSAN) - Final 08/23/16 10:45 Nasopharyngeal Swab - Final imp/reccd CAP CHF CAD AICD WBC now normal rocephin/zithromax day #4, can switch zithromax to finish 5 days, can switch to po ceftin to finish 7 days cultures negative legionella urinary antigen for completeness (ordered but never sent from ICU) Problem List - Problems (1) Community acquired bacterial pneumonia Code(s): J15.9 - UNSPECIFIED BACTERIAL PNEUMONIA (2) CHF (congestive heart failure) Code(s): I50.9 - HEART FAILURE, UNSPECIFIED (3) CKD (chronic kidney disease) stage 3, GFR 30-59 ml/min Code(s): N18.3 - CHRONIC KIDNEY DISEASE, STAGE 3 (MODERATE)
[2016-08-26] MEDS: cefTRIAXone 2 GM/100 ML BAG (PRE-DOCKED) IVPB SCH (11:23)
[2016-08-26] MEDS: ALLOPURINOL 100 MG TABLET (FP) PO SCH (11:24)
[2016-08-26] MEDS: AZITHROMYCIN IVPB 250 MG in DEXTROSE 5%-WATER - 250 ML IVPB SCH ×2 (11:24→11:25)
[2016-08-26] MEDS: DABIGATRAN ETEXILATE MESYLATE 75 MG CAPSULE PO SCH (11:25)
[2016-08-26] MEDS: FOLIC ACID 1 MG TABLET (FP) PO SCH (11:25)
[2016-08-26] MEDS: ASPIRIN COATED 81 MG TABLET.EC PO SCH (11:25)
[2016-08-26] MEDS: TAMSULOSIN HCL 0.4 MG CAP.ER.24H (FP) PO SCH (11:25)
--- NOTE | 2016-08-26 14:06 | PN ---
Progress Note, Physician History of Present Illness: PULMONARY ALERT,OOB-CHAIR,-SOB,LESS COUGH,-CP - Current Medication List Current Medications: Active Medications Acetaminophen (Tylenol -) 1,000 mg PO Q6H PRN PRN Reason: FEVER OR PAIN Allopurinol (Zyloprim -) 100 mg PO DAILY [facility] Last Admin: 08/26/16 11:24 Dose: 100 mg Aspirin (Ecotrin -) 81 mg PO DAILY [facility] Last Admin: 08/26/16 11:25 Dose: 81 mg Atorvastatin Calcium (Lipitor -) 10 mg PO HS [facility] Last Admin: 08/25/16 21:02 Dose: 10 mg Ceftriaxone Sodium (Rocephin 2gm Ivpb (Pre-Docked)) 2 gm IVPB DAILY [facility] PRN Reason: Protocol Last Admin: 08/26/16 11:23 Dose: 2 gm Dabigatran (Pradaxa -) 75 mg PO BID [facility] Last Admin: 08/26/16 11:25 Dose: 75 mg Folic Acid (Folic Acid -) 1 mg PO DAILY [facility] Last Admin: 08/26/16 11:25 Dose: 1 mg Furosemide (Lasix -) 40 mg PO BID@0600,1400 [facility] Last Admin: 08/26/16 13:39 Dose: 40 mg Azithromycin 250 mg/ Dextrose 250 mls @ 250 mls/hr IVPB DAILY [facility] Last Admin: 08/26/16 11:25 Dose: 250 mls/hr Sodium Polystyrene Sulf Pwd ( 1tablespoon) 1 each PO HS [facility] Last Admin: 08/25/16 21:02 Dose: 1 each Tamsulosin HCl (Flomax -) 0.4 mg PO DAILY@0830 [facility] Last Admin: 08/26/16 11:25 Dose: 0.4 mg - Objective Vital Signs: Vital Signs Temperature 98.3 F 08/26/16 10:00 Pulse Rate 61 08/26/16 10:00 Respiratory Rate 18 08/26/16 10:00 Blood Pressure 119/52 08/26/16 10:00 O2 Sat by Pulse Oximetry (%) 95 08/26/16 09:00 Constitutional: Yes: Well Nourished, Calm Eyes: Yes: WNL HENT: Yes: WNL Neck: Yes: WNL Cardiovascular: Yes: Pulse Irregular, S1, S2 Respiratory: Yes: Diminished, Rales (ARIELA CRACKLES 1/3 UP) Gastrointestinal: Yes: Normal Bowel Sounds, Soft Extremities: Yes: WNL Edema: Yes Labs: CBC, BMP 08/26/16 05:41 08/26/16 05:41 INR, PTT INR 1.28 (0.82-1.09) H 08/24/16 05:35 Problem List - Problems (1) Atrial fibrillation Code(s): I48.91 - UNSPECIFIED ATRIAL FIBRILLATION (2) CAD (coronary artery disease) Code(s): I25.10 - ATHSCL HEART DISEASE OF [place] CORONARY ARTERY W/O ANG PCTRS (3) CHF (congestive heart failure) Code(s): I50.9 - HEART FAILURE, UNSPECIFIED (4) CKD (chronic kidney disease) stage 3, GFR 30-59 ml/min Code(s): N18.3 - CHRONIC KIDNEY DISEASE, STAGE 3 (MODERATE) (5) Community acquired bacterial pneumonia Code(s): J15.9 - UNSPECIFIED BACTERIAL PNEUMONIA (6) Hx of CABG Code(s): Z95.1 - PRESENCE OF AORTOCORONARY BYPASS GRAFT (7) Prostate CA Code(s): C61 - MALIGNANT NEOPLASM OF PROSTATE (8) Sepsis Code(s): A41.9 - SEPSIS, UNSPECIFIED ORGANISM Qualifiers: Sepsis type: sepsis due to unspecified organism Qualified Code(s): A41.9 - Sepsis, unspecified organism Assessment/Plan IMP: Sepsis due to suspected LLL CAP CHF AICD about 5 years ago CAD CABGx4 in 2009 CKD stage 3 Prostate CA (s/p radiation) Afib PLAN: ABX O2 as needed Pradaxa Strict I&O Ambulate Chest x-ray today DR DE LEON
[2016-08-26 14:28] VITALS: BP 115/58; PULSE 62; TEMP 98.1
--- NOTE | 2016-08-26 14:48 | PN ---
Progress Note, Physician History of Present Illness: Pt seen and examined at bedside. He is awake and alert. He says he feels better and they cough has improved. - Current Medication List Current Medications: Active Medications Acetaminophen (Tylenol -) 1,000 mg PO Q6H PRN PRN Reason: FEVER OR PAIN Allopurinol (Zyloprim -) 100 mg PO DAILY [facility] Last Admin: 08/26/16 11:24 Dose: 100 mg Aspirin (Ecotrin -) 81 mg PO DAILY [facility] Last Admin: 08/26/16 11:25 Dose: 81 mg Atorvastatin Calcium (Lipitor -) 10 mg PO HS [facility] Last Admin: 08/25/16 21:02 Dose: 10 mg Ceftriaxone Sodium (Rocephin 2gm Ivpb (Pre-Docked)) 2 gm IVPB DAILY [facility] PRN Reason: Protocol Last Admin: 08/26/16 11:23 Dose: 2 gm Dabigatran (Pradaxa -) 75 mg PO BID [facility] Last Admin: 08/26/16 11:25 Dose: 75 mg Folic Acid (Folic Acid -) 1 mg PO DAILY [facility] Last Admin: 08/26/16 11:25 Dose: 1 mg Furosemide (Lasix -) 40 mg PO BID@0600,1400 [facility] Last Admin: 08/26/16 13:39 Dose: 40 mg Azithromycin 250 mg/ Dextrose 250 mls @ 250 mls/hr IVPB DAILY [facility] Last Admin: 08/26/16 11:25 Dose: 250 mls/hr Sodium Polystyrene Sulf Pwd ( 1tablespoon) 1 each PO HS [facility] Last Admin: 08/25/16 21:02 Dose: 1 each Tamsulosin HCl (Flomax -) 0.4 mg PO DAILY@0830 [facility] Last Admin: 08/26/16 11:25 Dose: 0.4 mg - Objective Vital Signs: Vital Signs Temperature 98.1 F 08/26/16 14:00 Pulse Rate 62 08/26/16 14:00 Respiratory Rate 18 08/26/16 14:00 Blood Pressure 115/58 08/26/16 14:00 O2 Sat by Pulse Oximetry (%) 95 08/26/16 14:20 Constitutional: Yes: Calm Eyes: Yes: Conjunctiva Clear HENT: Yes: Atraumatic Neck: Yes: Supple Cardiovascular: Yes: S1, S2 Respiratory: Yes: CTA Bilaterally Gastrointestinal: Yes: Soft Genitourinary: Yes: WNL Edema: Yes Edema: LLE: 1+, RLE: 1+ Neurological: Yes: Oriented Psychiatric: Yes: Oriented Labs: CBC, BMP 08/26/16 05:41 08/26/16 05:41 INR, PTT INR 1.28 (0.82-1.09) H 08/24/16 05:35 Problem List - Problems (1) Sepsis Code(s): A41.9 - SEPSIS, UNSPECIFIED ORGANISM Qualifiers: Sepsis type: sepsis due to unspecified organism Qualified Code(s): A41.9 - Sepsis, unspecified organism (2) CKD (chronic kidney disease) stage 3, GFR 30-59 ml/min Code(s): N18.3 - CHRONIC KIDNEY DISEASE, STAGE 3 (MODERATE) (3) CAD (coronary artery disease) Code(s): I25.10 - ATHSCL HEART DISEASE OF [place] CORONARY ARTERY W/O ANG PCTRS (4) Hx of CABG Code(s): Z95.1 - PRESENCE OF AORTOCORONARY BYPASS GRAFT (5) Atrial fibrillation Code(s): I48.91 - UNSPECIFIED ATRIAL FIBRILLATION (6) Prostate CA Code(s): C61 - MALIGNANT NEOPLASM OF PROSTATE Assessment/Plan Current Medications Generic Name Dose Route Start Last Admin Trade Name Freq PRN Reason Stop Dose Admin Acetaminophen 1,000 mg 08/25/16 08:27 Tylenol - PO Q6H PRN FEVER OR PAIN Allopurinol 100 mg 08/25/16 10:00 08/26/16 11:24 Zyloprim - PO 100 mg DAILY [facility] Administration Aspirin 81 mg 08/25/16 10:00 08/26/16 11:25 Ecotrin - PO 81 mg DAILY [facility] Administration Atorvastatin Calcium 10 mg 08/25/16 22:00 08/25/16 21:02 Lipitor - PO 10 mg HS [facility] Administration Ceftriaxone Sodium 2 gm 08/25/16 10:00 08/26/16 11:23 Rocephin 2gm Ivpb (Pre-Docked) IVPB 2 gm DAILY [facility] Administration Protocol Dabigatran 75 mg 08/25/16 10:00 08/26/16 11:25 Pradaxa - PO 75 mg BID [facility] Administration Folic Acid 1 mg 08/25/16 10:00 08/26/16 11:25 Folic Acid - PO 1 mg DAILY [facility] Administration Furosemide 40 mg 08/26/16 06:00 05/01/17 13:39 Lasix - PO 40 mg BID@0600,1400 [facility] Administration Azithromycin 250 mg/ Dextrose 250 mls @ 250 mls/hr 08/25/16 10:00 08/26/16 11: 25 IVPB 250 mls/hr DAILY [facility] Administration Sodium Polystyrene 1 each 08/25/16 22:00 08/25/16 21:02 Sulf Pwd ( PO 1 each 1tablespoon) HS [facility] Administration Tamsulosin HCl 0.4 mg 08/25/16 09:15 08/26/16 11:25 Flomax - PO 0.4 mg DAILY@0830 [facility] Administration Impression 1. CKD stage 3 with likely acute component as gfr here is 22 2. Sepsis 3. PNA 4. CAD 5. a-fib 6. hematuria with bladder mass 7. hx prostate cancer 8. hyperlipidemia 9. 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
--- NOTE | 2016-08-26 14:54 | DS ---
Physical Exam: SUBJECTIVE: Patient seen and examined. He says feel great. He has CP or cough or pain with inspiration OBJECTIVE: Vital Signs Period Temp Pulse Resp BP Sys/Hicks Pulse Ox Last 24 Hr 97.5 F-99 F 60-63 18-18 115-140/52-68 95-95 PE Neuro: alert, awake, cn 2-12intact Pulm: scattered basilar crackles R>L CV: s1 s2 rrr no mrg Abd: protuberant abd, LLQ discomfort, + bs, soft Ext: b/l + 2 pitting edema, warm Laboratory Results - last 24 hr 08/26/16 08/26/16 05:41 05:41 WBC 9.6 RBC 3.71 L Hgb 11.6 L Hct 34.9 L MCV 94.3 MCHC 33.3 RDW 14.8 Plt Count 260 MPV 9.2 Neutrophils % 68.7 Lymphocytes % 9.2 D Monocytes % 15.0 H Eosinophils % 6.0 H D Basophils % 1.1 D Sodium 142 Potassium 4.0 Chloride 107 Carbon Dioxide 26 Anion Gap 9 BUN 59 H Creatinine 2.1 H Random Glucose 89 Calcium 8.4 L Magnesium 1.9 HOSPITAL COURSE: Date of Admission:08/23/16 Date of Discharge: 08/26/16 Minutes to complete discharge: 35 Discharge Summary Reason For Visit: SEPSIS,CHF,PNEUMONIA Current Active Problems Atrial fibrillation (Acute) CAD (coronary artery disease) (Acute) CHF (congestive heart failure) (Acute) CKD (chronic kidney disease) stage 3, GFR 30-59 ml/min (Acute) Community acquired bacterial pneumonia (Acute) Hx of CABG (Acute) Prostate CA (Acute) Sepsis (Acute) Hospital Course: Initial Hospital Course: Briefly, this 85 yo M with significant PMHx of CHF(s/p AICD), CAD(s/p CABG 2009) , CKD stage 3, prostate ca(s/p radiation), and Afib (on pradaxa) presented with two day history of productive cough and weakness. He was in his normal state of health until last evening when he started with cough productive of yellow sputum and some chest pressure. He described 5/10 non-radiating chest pressure that last approx. 5 min and never returned, he felt it was related to coughing. He had difficulty sleeping secondary to cough and then the morning of admission he noticed fever and some blood tinged sputum which prompted trip to ED. In the ER the pat had a fever over 101, Lactic acid of over 2, trop of 0.10, congestion and suspicion of PNA on CXR. Treated initially Azithro, Rocephin for PNA Lasix 80 for fluid congestion He was then found to be hypotensive, given x2 250cc bolus and sent to the ICU Subsequent Hospital Course/Progress Note/Discharge Summary by a/p: Assessment: 85 year old male with PMHx of CHF, [place] (1992), CVA 2006, AICD about 5 years ago, CAD (s/p CABG x4 in 2005), CKD stage 3, prostate cancer (s/p radiation), a.fib (on Pradaxa) admitted with PNA and cough. Plan: 1. Severe sepsis 2/2 suspected LLL community acquired pneumonia - WBC wnl - s/p azithromycin and Ceftriaxone (day 4 days) - Home with zithro x1 day, ceftin 500 BID x7days 2. Elevated troponins - Mildly elevated, likely demand ischemia d/t hypotension - ECHO RVSP 50-60mmhg, severe plum htn, mild MR, mod TR, LVSF, size, normal - D/w Cardiology Dr. Suh, will consider CTA to eval pulm htn, however not now d/t lori on ckd 3. Hypotension - Likely 2/2 sepsis vs. lasix administration from ED - Resolved - Resume lopressor on discharge 4. Chronic diastolic CHF - Resume home lasix 40mg BID 5. CAD - Continue Lipitor - Continue ASA 6. HTN - Resume home hydralazine 50 TID 7. A.fib s/p AICD - Continue Pradaxa 8. Acute on CKD stage 3 - Improving - s/p IV lasix - Resume lasix 40 BID - Outpt renal follow up (referral enclosed) 9. Prostate Ca - Flomax daily Dispo: - Home with above follow up and abx - Pt and aware and agree to above plan Condition: Stable - Instructions Diet, Activity, Other Instructions: Please return to the ED for any new, persistent, or worsening symptoms. Follow up with your PCP in 1 week Resume home medications as directed on home discharge medication list Take antibiotics as directed Follow up with Renal doctor for monitoring of your kidney function (Chris) F/u with Cardiology (Dr. Suh) in 1-2 weeks as you will need further work up for pulmonary htn, he is expecting you. Referrals: Sammy Avila MD [Staff Physician] - Conor Perez MD [Staff Physician] - Roscoe Morrison MD [Primary Care Provider] - 1 Week Fermín Suh MD [Staff Physician] - 1 Week (Follow up with Cardiology for continued work up and management of Pulmonary HTN. ) Disposition: HOME - Home Medications Comprehensive Discharge Medication List: Ambulatory Orders Allopurinol [Zyloprim -] 100 mg PO DAILY 08/23/16 Aspirin [Ecotrin] 81 mg PO DAILY 08/23/16 Atorvastatin Ca [Lipitor] 10 mg PO ASDIR 08/23/16 Dabigatran Etexilate Mesylate [Pradaxa -] 75 mg PO BID 08/23/16 Folic Acid 1 mg PO DAILY 08/23/16 Furosemide [Lasix] 40 mg PO BID 08/23/16 Hydralazine HCl 50 mg PO TID 08/23/16 Metoprolol Tartrate [Lopressor -] 12.5 mg PO BID 08/23/16 Sodium Polystyrene Sulfonate [Kionex] 454 gm PO DAILY 08/23/16 Tamsulosin HCl [Flomax] 0.4 mg PO DAILY 08/23/16 Azithromycin 250 mg PO DAILY #1 tablet 08/26/16 Cefuroxime Axetil [Ceftin -] 500 mg PO Q12H #14 tablet 08/26/16 This patient is new to me today: No Emergency Visit: Yes ED Registration Date: 08/23/16 Care time: The patient presented to the Emergency Department on the above date and was hospitalized for further evaluation of their emergent condition. Critical Care patient: No - Discharge Referral Referred to [facility] No
== END 2016-08-26 16:15 | disposition home or self-care (01) | DRG 871 ==
LOC: JER 09:51 → JERBED 11:59 → JICU 14:40 → J4S 08-24 19:22
PROVIDERS: ADMIT Internal Medicine; ATTEND Nurse Practitioner Acute Care
DX: A41.9 Sepsis, unspecified organism (principal); J18.9 Pneumonia, unspecified organism; I13.0 Hypertensive heart and chronic kidney disease with heart failure and stage 1 through stage 4 chronic kidney disease, or unspecified chronic kidney disease; I50.32 Chronic diastolic (congestive) heart failure; R65.20 Severe sepsis without septic shock; I48.91 Unspecified atrial fibrillation; N18.3 Chronic kidney disease, stage 3 (moderate); Z85.46 Personal history of malignant neoplasm of prostate; I25.10 Atherosclerotic heart disease of native coronary artery without angina pectoris; Z95.1 Presence of aortocoronary bypass graft; E78.5 Hyperlipidemia, unspecified; M10.9 Gout, unspecified; R31.9 Hematuria, unspecified; D72.829 Elevated white blood cell count, unspecified; Z87.891 Personal history of nicotine dependence
CPT/HCPCS: 36415; 71010-TC; 80048; 80053; 81003; 82436; 82550; 82570; 82803; 83605; 83735; 83880; 84133; 84300; 84484; 85025; 85027; 85610; 85730; 86850; 86900; 86901; 87040; 87070; 87086; 87205; 87804; 87899; 93005; 93010; 93306-TC; 94010; 97116-GP; 97161-GP; 99284-25

== ENCOUNTER 2018-02-02 22:23 | Inpatient (IN) | payer OTHER ==
[2018-02-03 00:14] LABS: EOS % 7.2 % (0-4.5); HEMATOCRIT 36.3 % (35.4-49); HEMOGLOBIN 11.5 GM/dL (11.7-16.9); LYMPH % 8.8 % (8-40); MCH 27.3 pg (25.7-33.7); MCHC 31.7 g/dl (32.0-35.9); MEAN CELL VOLUME 86.1 fl (80-96); MEAN PLT VOLUME 9.4 fl (7.5-11.1); MONO % 13.9 % (3.8-10.2); NEUT % 69.1 % (42.8-82.8); PLATELET COUNT 367 K/MM3 (134-434); RBC 4.21 M/mm3 (4.00-5.60); RDW 20.6 % (11.9-15.9); WHITE BLOOD COUNT 11.3 K/mm3 (4.0-10.0)
[2018-02-03 00:54] LABS: URINE APPEARANCE CLEAR; URINE BILIRUBIN NEGATIVE (<2.0 mg/dL); URINE COLOR STRAW; URINE GLUCOSE (UA) NEGATIVE (NEGATIVE); URINE KETONE NEGATIVE (NEGATIVE); URINE LEUK ESTERASE NEGATIVE (NEGATIVE); URINE NITRITE NEGATIVE (NEGATIVE); URINE PROTEIN NEGATIVE (NEGATIVE); URINE UROBILINOGEN NEGATIVE mg/dL (0.2-1.0)
[2018-02-03 01:31] LABS: MAGNESIUM 2.1 mg/dL (1.8-2.4)
[2018-02-03 01:36] LABS: ALK PHOS 75 U/L (45-117); ANION GAP 8 MMOL/L (8-16); BILIRUBIN,TOTAL 0.2 mg/dL (0.2-1); BLOOD UREA NITROGEN 82 mg/dL (7-18); CALCIUM 8.9 mg/dL (8.5-10.1); CHLORIDE 105 mmol/L (98-107); CO2 27 mmol/L (21-32); CREATININE 2.6 mg/dL (0.55-1.3); GLUCOSE,RANDOM 106 mg/dL (74-106); PHOSPHOROUS 4.9 mg/dL (2.5-4.9); POTASSIUM 4.7 mmol/L (3.5-5.1); SGOT/AST 37 U/L (15-37); SGPT/ALT 28 U/L (13-61); SODIUM 140 mmol/L (136-145); TOT PROT 6.8 g/dl (6.4-8.2)
[2018-02-03 01:44] LABS: INR 1.12 (0.83-1.09); PROTHROMBIN TIME (PATIENT) 13.2 SEC (9.7-13.0)
[2018-02-03 01:46] LABS: ACTIVATED PTT 24.7 SECONDS (25.2-36.5)
[2018-02-03 01:50] LABS: ANISOCYTOSIS 2+
--- NOTE | 2018-02-03 01:55 | PDOC ---
Attending Attestation - Resident Resident Name: Donna Kathleen - ED Attending Attestation I have performed the following: I have examined & evaluated the patient, The case was reviewed & discussed with the resident, I agree w/resident's findings & plan, Exceptions are as noted - HPI HPI: 02/03/18 01:52 The patient is a year old male, with a past medical history of CHF(s/p AICD), CAD(s/p CABG 2009), CKD stage 3, prostate ca(s/p radiation), AAA, and Afib, who presents to the emergency department with chest pain x 3 days. Pt states that it began at rest. Denies any exacerbating or alleviating factors. States the pain radiates from his chest to his back and to his abdomen. He denies any recent fevers, chills, headache or dizziness. He denies any recent nausea, vomit, diarrhea or constipation. He denies any recent shortness of breath. He denies any recent dysuria, frequency, urgency or hematuria. Allergies: NKDA Social History: Former smoker (Quit 40 years ago). Denies EtOH use and recreational drug use. Primary Care Physician: Dr. Roscoe Morrison - Physicial Exam PE: 02/03/18 01:52 "GENERAL: Awake, alert, and fully oriented, in no acute distress. HEAD: No signs of trauma EYES: PERRLA, EOMI, sclera anicteric, conjunctiva clear ENT: Auricles normal inspection, hearing grossly normal, nares patent, oropharynx clear without exudates. Moist mucosa NECK: Nontender, no stepoffs, Normal ROM, supple, no lymphadenopathy, JVD, or masses LUNGS: Breath sounds equal, clear to auscultation bilaterally. No wheezes, and no crackles HEART: Regular rate and rhythm, normal S1 and S2, no murmurs, rubs or gallops ABDOMEN: Soft, nontender, normoactive bowel sounds. No guarding, no rebound. No masses EXTREMITIES: Normal range of motion, no edema. No clubbing or cyanosis. No cords, erythema, or tenderness NEUROLOGICAL: Cranial nerves II through XII intact. 5/5 strength and sensation in all extremities, Normal speech, normal gait, normal cerebellar function SKIN: Warm, Dry, normal turgor, no rashes or lesions noted. - Medical Decision Making 02/03/18 01:52 87 M with chest pain radiating to back and abdomen. Will need to r/o ACS with serial trops. EKG with paced rhythm, with bigeminy. Pt has h/o AAA and given radiation of pain from chest to back and abdomen, will need imaging of aorta. - Labs, trop - CXR - CTA chest/abd/pelvis to r/o dissection/AAA 02/03/18 01:58 Pt with Cr >2. Discussed risks/benefits of CT with IV contrast with pt. Given pt's h/o AAA and high risk for vascular catastrophe, I believe the benefit of CTA greatly outweighs risk of contrast-induced nephropathy. Pt and daughter give verbal consent for CTA. CTs negative for dissection Pt admitted to hospitalist
--- NOTE | 2018-02-03 02:58 | PDOC ---
History of Present Illness - General Chief Complaint: Chest Pain Stated Complaint: CHEST PAIN Time Seen by Provider: 02/02/18 23:35 History Source: Patient Exam Limitations: No Limitations - History of Present Illness Initial Comments: This is an 87 YOM with h/o AAA, CAD, CABG, A-fib on Eliquis, CHF, and prior PNA with sepsis, who p/w chest pressure radiating to his upper back and neck since about 9:30 pm tonight. He has memory impairment, as noted by his daughter who accompanies him to the ED tonight. She explains that he first complained of the pain at 9:30 pm tonight. He also has had worsening chronic BLE swelling with new mild right leg redness and a few skin tears, and the daughter believes this is new and is concerned for infection. The patient otherwise is unable to give a consistent account of his symptoms over the past few weeks, but currently he denies palpitations, f/c/n/v/d/c, SOB, sweats, arm pain, jaw pain, headache, vision change, lightheadedness, dizziness, abdominal pain, burning on urination , or other symptoms. The daughter explains that the patient saw an outpatient provider last week and was told he should have an ablation for his A-fib. He also saw his final operations technician at [facility] who adjusted his pacemaker last Friday. Past History - Past Medical History Allergies/Adverse Reactions: Allergies Allergy/AdvReac Type Severity Reaction Status Date / Time No Known Allergies Allergy Verified 12/07/17 11:49 Home Medications: Ambulatory Orders Allopurinol [Zyloprim -] 100 mg PO DAILY 08/23/16 Aspirin [Ecotrin] 81 mg PO DAILY 08/23/16 Atorvastatin Ca [Lipitor] 10 mg PO ASDIR 08/23/16 Folic Acid 1 mg PO DAILY 08/23/16 Furosemide [Lasix] 40 mg PO TID 08/23/16 Hydralazine HCl 50 mg PO BID 08/23/16 Metoprolol Tartrate [Lopressor -] 25 mg PO BID 08/23/16 Tamsulosin HCl [Flomax] 0.4 mg PO DAILY 08/23/16 Apixaban [Eliquis -] 2.5 mg PO BID 02/02/18 Hydroxyzine HCl 25 mg PO HS 02/02/18 Cancer: Yes (hx of prostate ca with radiation) Cardiac Disorders: Yes (ppm, UT, A FIB,AAA,CAD) CVA: Yes (R CVA) COPD: No CHF: Yes Dialysis: No (CKD) GI Disorders: Yes (enlarged prostate) HTN: Yes Hypercholesterolemia: Yes Other medical history: gout - Surgical History Cardiac Surgery: Yes (ppm, bypass X 4) - Suicide/Smoking/Psychosocial Hx Smoking History: Former smoker Have you smoked in the past 12 months: No If you are a former smoker, when did you quit?: 40 years ago Information on smoking cessation initiated: No Hx Alcohol Use: No Drug/Substance Use Hx: No Substance Use Type: None Hx Substance Use Treatment: No Cardiac Specific PMH - Complaint Specific PMHX Pacemaker: Yes Review of Systems - Review of Systems Able to Perform ROS?: Yes Constitutional: No: Chills, Fever, Unexplained wgt Loss HEENTM: No: Nose Congestion, Throat Pain Respiratory: No: Cough, Shortness of Breath Cardiac (ROS): Yes: Chest Pain. No: Palpitations ABD/GI: No: Constipated, Diarrhea, Nausea, Vomiting : No: Burning, Dysuria Musculoskeletal: Yes: Back Pain, Neck Pain Integumentary: No: Bruising, Rash Neurological: No: Headache, Numbness, Tingling, Weakness, Dizziness Endocrine: No: Unexplained Weight Gain, Unexplained Weight Loss *Physical Exam - Vital Signs Last Vital Signs Temp Pulse Resp BP Pulse Ox 97.7 F 62 17 124/57 L 96 02/02/18 22:34 02/03/18 05:23 02/03/18 05:23 02/03/18 05:23 02/03/18 05:23 GENERAL: nontoxic and well-appearing, comfortable unless repositioning, nourished, A/Ox3 (name, date, and type of building), no acute distress, speaking in full sentences, answers questions appropriately HEENT: PERRLA, EOMI, moist mucous membranes, no posterior pharyngeal erythema, no tonsillar swelling or exudates, no cervical lymphadenopathy NECK: No midline ttp, no spinal stepoff or deformity, full ROM, supple CARDIOVASCULAR: Irregularly irregular rhythm, no MGR, radial and DP pulses 2+ and symmetric, capillary refill <2 seconds, extremities warm and well-perfused, 2+ pitting edema BLE CHEST WALL: Right superior anterior chest wall skin with mildly erythematous 5x5 cm patchy rash without secondary excoriations or other lesions, otherwise normal appearance, no bruising, no costal stepoff or deformity, nontender to compression LUNGS/RESPIRATORY: No respiratory distress, normal and symmetric chest movements during respirations, lungs CTA bilaterally, equal breath sounds, no cyanosis, no nail clubbing GI/ABDOMEN: Protuberant, symmetric appearance, normoactive bowel sounds, soft, no tenderness to palpation, no midline pulsatile masses, no palpated organomegaly : No CVA tenderness, normal external appearance, no lesions BACK: No midline ttp or stepoff or deformity of thoracic or lumbar spine EXTREMITIES: distal pulses 2+, warm and well-perfused, BLE edema as noted above SKIN: Right javier with distal mild erythema in about a 4x4 cm patch which is poorly demarcated and not particularly warm, few superficial skin tears to RLE, otherwise skin is warm and dry, no pallor, no jaundice, no bruising, no rash, no skin breakdown, no cuts, no lesions NEUROLOGICAL: GCS 15, CN II-XII grossly intact, ambulating with normal gait, moving all extremities, 5/5 strength proximally and distally, no facial droop, no decreased sensation Heart Score/ECG Review - History History: Moderately suspicious - Electrocardiogram EKG: Normal - Age Age: >/= 65 - Risk Factors Risk Factors Heart Score: Yes Hx Hypercholesterolemia, Yes Hx Hypertension Based on the list above the patient has:: 1-2 risk factors - Troponin Troponin: </= normal limit - Score Heart Score - Total: 4 #1 02/02/18 22:31 Paced rhythm with PVCs in pattern of ventricular bigeminy, ventricular rate of 75, no ischemic ST-T changes ED Treatment Course - LABORATORY CBC & Chemistry Diagram: 02/03/18 00:01 02/03/18 00:52 - ADDITIONAL ORDERS Additional order review: Laboratory Results 02/03/18 02/03/18 02/03/18 05:14 01:17 00:52 PT with INR 13.20 H INR 1.12 H PTT (Actin FS) 24.7 L Sodium 140 Potassium 4.7 Chloride 105 Carbon Dioxide 27 Anion Gap 8 BUN 82 H Creatinine 2.6 H Creat Clearance w eGFR 23.52 Random Glucose 106 Calcium 8.9 Phosphorus 4.9 Magnesium Total Bilirubin 0.2 AST 37 ALT 28 Alkaline Phosphatase 75 Creatine Kinase Troponin I Cancelled B-Natriuretic Peptide Total Protein 6.8 Albumin 3.0 L TSH 1.05 Urine Color Urine Appearance Urine pH Ur Specific Centre Urine Protein Urine Glucose (UA) Urine Ketones Urine Blood Urine Nitrite Urine Bilirubin Urine Urobilinogen Ur Leukocyte Esterase 02/03/18 02/03/18 02/03/18 00:52 00:37 00:01 PT with INR INR PTT (Actin FS) Sodium Potassium Chloride Carbon Dioxide Anion Gap BUN Creatinine Creat Clearance w eGFR Random Glucose Calcium Phosphorus Magnesium 2.1 Total Bilirubin AST ALT Alkaline Phosphatase Creatine Kinase 57 Troponin I 0.02 B-Natriuretic Peptide Total Protein Albumin TSH Cancelled Urine Color Straw Urine Appearance Clear Urine pH 5.0 Ur Specific Centre 1.009 L Urine Protein Negative Urine Glucose (UA) Negative Urine Ketones Negative Urine Blood Negative Urine Nitrite Negative Urine Bilirubin Negative Urine Urobilinogen Negative Ur Leukocyte Esterase Negative 02/03/18 02/03/18 02/03/18 00:01 00:01 00:01 PT with INR Cancelled INR Cancelled PTT (Actin FS) Cancelled Sodium Potassium Chloride Carbon Dioxide Anion Gap BUN Creatinine Creat Clearance w eGFR Random Glucose Calcium Phosphorus Magnesium Total Bilirubin AST ALT Alkaline Phosphatase Creatine Kinase Cancelled Troponin I Cancelled B-Natriuretic Peptide 3635.3 H Total Protein Albumin TSH Urine Color Urine Appearance Urine pH Ur Specific Centre Urine Protein Urine Glucose (UA) Urine Ketones Urine Blood Urine Nitrite Urine Bilirubin Urine Urobilinogen Ur Leukocyte Esterase 02/03/18 00:01 RBC 4.21 MCV 86.1 D MCHC 31.7 L RDW 20.6 H MPV 9.4 Neutrophils % 69.1 Lymphocytes % 8.8 Monocytes % 13.9 H Eosinophils % 7.2 H Basophils % 1.0 - Medications Given in the ED: ED Medications Discontinued Medications Generic Name Dose Route Start Last Admin Trade Name Freq PRN Reason Stop Dose Admin Acetaminophen 1,000 mg 02/03/18 03:50 02/03/18 04:17 Ofirmev Injection - IVPB 02/03/18 03:51 1,000 mg ONCE ONE Administration Piperacillin Sod/Tazobactam 100 mls @ 200 mls/hr 02/03/18 05:47 02/03/18 05: 57 Sod 4.5 gm/ Dextrose IVPB 02/03/18 06:16 200 mls/hr ONCE ONE Administration Protocol Morphine Sulfate 4 mg 02/03/18 03:27 02/03/18 05:22 Morphine Injection - IVPUSH 02/03/18 03:28 Not Given ONCE ONE Medical Decision Making - Medical Decision Making Elderly male Pt p/w chest pain radiating to back and neck. Initial Vital Signs Temp Pulse Resp BP Pulse Ox 97.7 F 60 20 155/67 100 02/02/18 22:34 02/02/18 22:34 02/02/18 22:34 02/02/18 22:34 02/02/18 22:34 Exam: As noted in Physical Exam section. DDX IBNLT: ACS, aortic dissection, AAA, pericarditis, tamponade, PTX, PE, esophageal tear, esophagitis (e.g. pill, infectious), esophageal stricture, esophageal FB, gastritis, PUD, pancreatitis, cholecystitis, cholangitis, colitis , bowel perforation, PNA/bronchitis, pleurisy, pleuritis, MVP, pulmonary HTN, musculoskeletal, panic/anxiety, etc. W/U ordered: Labs as noted below, EKG, Chest/Abdomen/Pelvis CTA TX ordered: monitor Ofirmev Morphine EKG: Reviewed; results as noted in ECG Review section. Laboratory Tests 02/03/18 02/03/18 02/03/18 00:01 00:01 00:01 WBC 11.3 H RBC 4.21 Hgb 11.5 L Hct 36.3 MCV 86.1 D MCH 27.3 MCHC 31.7 L RDW 20.6 H Plt Count 367 MPV 9.4 Absolute Neuts (auto) 7.8 Neutrophils % 69.1 Lymphocytes % 8.8 Monocytes % 13.9 H Eosinophils % 7.2 H Basophils % 1.0 Nucleated RBC % 0 Poikilocytosis 1+ Anisocytosis 2+ Microcytosis 2+ PT with INR Cancelled INR Cancelled PTT (Actin FS) Cancelled Sodium Potassium Chloride Carbon Dioxide Anion Gap BUN Creatinine Creat Clearance w eGFR Random Glucose Calcium Phosphorus Magnesium Total Bilirubin AST ALT Alkaline Phosphatase Creatine Kinase Cancelled Troponin I Cancelled Total Protein Albumin TSH Urine Color Urine Appearance Urine pH Ur Specific Centre Urine Protein Urine Glucose (UA) Urine Ketones Urine Blood Urine Nitrite Urine Bilirubin Urine Urobilinogen Ur Leukocyte Esterase 02/03/18 02/03/18 02/03/18 00:01 00:37 00:52 WBC RBC Hgb Hct MCV MCH MCHC RDW Plt Count MPV Absolute Neuts (auto) Neutrophils % Lymphocytes % Monocytes % Eosinophils % Basophils % Nucleated RBC % Poikilocytosis Anisocytosis Microcytosis PT with INR INR PTT (Actin FS) Sodium Potassium Chloride Carbon Dioxide Anion Gap BUN Creatinine Creat Clearance w eGFR Random Glucose Calcium Phosphorus Magnesium 2.1 Total Bilirubin AST ALT Alkaline Phosphatase Creatine Kinase 57 Troponin I 0.02 Total Protein Albumin TSH Cancelled Urine Color Straw Urine Appearance Clear Urine pH 5.0 Ur Specific Centre 1.009 L Urine Protein Negative Urine Glucose (UA) Negative Urine Ketones Negative Urine Blood Negative Urine Nitrite Negative Urine Bilirubin Negative Urine Urobilinogen Negative Ur Leukocyte Esterase Negative 02/03/18 02/03/18 00:52 01:17 WBC RBC Hgb Hct MCV MCH MCHC RDW Plt Count MPV Absolute Neuts (auto) Neutrophils % Lymphocytes % Monocytes % Eosinophils % Basophils % Nucleated RBC % Poikilocytosis Anisocytosis Microcytosis PT with INR 13.20 H INR 1.12 H PTT (Actin FS) 24.7 L Sodium 140 Potassium 4.7 Chloride 105 Carbon Dioxide 27 Anion Gap 8 BUN 82 H Creatinine 2.6 H Creat Clearance w eGFR 23.52 Random Glucose 106 Calcium 8.9 Phosphorus 4.9 Magnesium Total Bilirubin 0.2 AST 37 ALT 28 Alkaline Phosphatase 75 Creatine Kinase Troponin I Total Protein 6.8 Albumin 3.0 L TSH 1.05 Urine Color Urine Appearance Urine pH Ur Specific Centre Urine Protein Urine Glucose (UA) Urine Ketones Urine Blood Urine Nitrite Urine Bilirubin Urine Urobilinogen Ur Leukocyte Esterase Vital Signs Temperature 97.7 F 02/02/18 22:34 Pulse Rate 60 02/03/18 01:53 Respiratory Rate 19 02/03/18 01:53 Blood Pressure 151/66 02/03/18 01:53 O2 Sat by Pulse Oximetry (%) 96 02/03/18 01:53 02/03/18 03:51 The daughter notes that the patient is in pain now and would like the pain medication previously ordered. I also place order for [facility]. CTA RESULTS ON IMAGING LAST WAXER Repeat cardiac enzymes ordered. HEART score indicates Pt is higher risk and should be managed in hospital with cardiology consult. The Pt is unsafe for discharge at this time. They require further hospital observation, workup, and treatment. 02/03/18 05:[address] Roscoe Morrison (patient's PCP). The patient is admitted to [facility]. Consult orders placed to Drs. Adrian and Elif. The patient is sleeping soundly, appears more comfortable. I have already spoken with the patient's daughter about the results of the chest and abdomen/pelvis CTA. I discussed the PNA as well as the multiple lesions (lung, liver, bone). She is aware and will discuss with her family and the patient. *DC/Admit/Observation/Transfer Diagnosis at time of Disposition: Liver mass, Bone lesion PNA (pneumonia) Qualifiers: Pneumonia type: due to unspecified organism Laterality: unspecified laterality Lung location: unspecified part of lung Qualified Code(s): J18.9 - Pneumonia, unspecified organism CHF exacerbation Qualifiers: Heart failure type: unspecified Qualified Code(s): I50.9 - Heart failure, unspecified - Discharge Dispostion Condition at time of disposition: Guarded Decision to Admit order: Yes Decision to Admit order Date/Time: Decision to Admit Order Category Date Time Status Decision to Admit to Hospital Routine Admission 02/03/18 05:42 Active - Referrals Referrals: Thor Morrison MD [Primary Care Provider] - - Patient Instructions - Post Discharge Activity
[2018-02-03] MEDS ORDERED: morphine CARPU-JECT 4 MG/1 ML DISP.SYRIN IVPUSH ONE (03:27)
[2018-02-03] MEDS ORDERED: ACETAMINOPHEN 1000 MG/100 ML VIAL (NON FORMULARY) IVPB ONE (03:50)
[2018-02-03] MEDS ORDERED: ACETAMINOPHEN INJECTION 100 ML IVPB ONE (04:12)
[2018-02-03] MEDS ORDERED: PIPERACILLIN/TAZOB 4.5 GM 4.5 GM in DEXTROSE 5%-WATER 100 ML IVPB ONE (05:47)
[2018-02-03] MEDS ORDERED: VANCOMYCIN 1,500 MG in DEXTROSE 5%-WATER - 500 ML IVPB ONE (05:48)
[2018-02-03] MEDS ORDERED: PIPERACILLIN/TAZOB 4.5 GM 4.5 GM/100 ML BAG IVPB ONE (05:50)
--- NOTE | 2018-02-03 06:58 | HP ---
Admitting History and Physical - Admission Chief Complaint: chest pain ? sobx 2 days. ruq pain ? in er. denies all other complaints History Source: Patient, Family Member Limitations to Obtaining History: Other (poor hearing uses shepherd) - Past Medical History Cardiovascular: Yes: AFIB, CAD, CHF, HTN, Other (h/o ml pacmaker) Hepatobiliary: Yes: Cholelithiasis Renal/: Yes: Renal Inusuff, Hematuria Heme/Onc: Yes: Cancer (prostate), Other (prostate cancer) Musculoskeletal: Yes: Other (gout) Dermatology: Yes: Eczema - Past Surgical History Past Surgical History: Yes: CABG, Cataract Removal, Permanent Pacemaker - Advance Directives Advance Directives: Yes: Living Will, Health Care Proxy - Smoking History Smoking history: Former smoker Have you smoked in the past 12 months: No If you are a former smoker, when did you quit?: 40 years ago - Alcohol/Substance Use Hx Alcohol Use: No History of Substance Use: reports: None - Social History Usual Living Arrangement: Yes: With Spouse ADL: Independent History of Recent Travel: No Home Medications - Allergies Allergies/Adverse Reactions: Allergies Allergy/AdvReac Type Severity Reaction Status Date / Time No Known Allergies Allergy Verified 12/07/17 11:49 - Home Medications Home Medications: Ambulatory Orders Allopurinol [Zyloprim -] 100 mg PO DAILY 08/23/16 Aspirin [Ecotrin] 81 mg PO DAILY 08/23/16 Atorvastatin Ca [Lipitor] 10 mg PO ASDIR 08/23/16 Folic Acid 1 mg PO DAILY 08/23/16 Furosemide [Lasix] 40 mg PO TID 08/23/16 Hydralazine HCl 50 mg PO BID 08/23/16 Metoprolol Tartrate [Lopressor -] 25 mg PO BID 08/23/16 Tamsulosin HCl [Flomax] 0.4 mg PO DAILY 08/23/16 Apixaban [Eliquis -] 2.5 mg PO BID 02/02/18 Hydroxyzine HCl 25 mg PO HS 02/02/18 Family Disease History - Family Disease History Family History: Unremarkable Review of Systems - Review of Systems Constitutional: reports: Other (cp sob) Eyes: reports: No Symptoms HENT: reports: No Symptoms Neck: reports: No Symptoms Cardiovascular: reports: Chest Pain, Shortness of Breath Respiratory: reports: SOB on Exertion Gastrointestinal: reports: Abdominal Pain (ruq) Genitourinary: reports: No Symptoms Breasts: reports: No Symptoms Reported Musculoskeletal: reports: No Symptoms Integumentary: reports: Blister, Other (rt lower leg) Neurological: reports: No Symptoms Endocrine: reports: No Symptoms Hematology/Lymphatic: reports: No Symptoms Psychiatric: reports: No Symptoms Physical Examination Vital Signs: Vital Signs Temperature 97.7 F 02/02/18 22:34 Pulse Rate 62 02/03/18 05:23 Respiratory Rate 17 02/03/18 05:23 Blood Pressure 124/57 L 02/03/18 05:23 O2 Sat by Pulse Oximetry (%) 96 02/03/18 05:23 Constitutional: Yes: Calm Eyes: Yes: WNL HENT: Yes: WNL Neck: Yes: WNL Cardiovascular: Yes: Regular Rate and Rhythm, S3 Respiratory: Yes: Rhonchi (lt low qud), SOB on Exertion Gastrointestinal: Yes: Other (ruq pain) ...Rectal Exam: Yes: Deferred Renal/: Yes: WNL Breast(s): Yes: WNL Musculoskeletal: Yes: WNL Extremities: Yes: Other (arcenio leg edema) Edema: Yes Edema: LLE: 2+, RLE: 2+ Peripheral Pulses WNL: Yes Integumentary: Yes: Venous Stasis Changes Wound/Incision: Yes: Other (rt leg abrasive from scrathing wd) Neurological: Yes: WNL ...Motor Strength: WNL Psychiatric: Yes: WNL Labs: CBC, BMP 02/03/18 00:01 02/03/18 00:52 Problem List - Problems (1) Atrial fibrillation Code(s): I48.91 - UNSPECIFIED ATRIAL FIBRILLATION
[2018-02-03] MEDS ORDERED: TAMSULOSIN HCL 0.4 MG CAP PO ONE (07:37)
[2018-02-03 08:10] LABS: HEMOGLOBIN 10.6 GM/dL (11.7-16.9); MCH 27.2 pg (25.7-33.7); MEAN PLT VOLUME 8.1 fl (7.5-11.1); PLATELET COUNT 300 K/MM3 (134-434); RBC 3.88 M/mm3 (4.00-5.60); RDW 19.8 % (11.9-15.9); WHITE BLOOD COUNT 10.1 K/mm3 (4.0-10.0)
[2018-02-03 08:28] LABS: ALBUMIN 2.4 g/dl (3.4-5.0); ALK PHOS 63 U/L (45-117); ANION GAP 6 MMOL/L (8-16); BILIRUBIN,TOTAL 0.4 mg/dL (0.2-1); BLOOD UREA NITROGEN 83 mg/dL (7-18); CALCIUM 8.5 mg/dL (8.5-10.1); CHLORIDE 106 mmol/L (98-107); CO2 26 mmol/L (21-32); CREATININE 2.6 mg/dL (0.55-1.3); GLUCOSE,RANDOM 106 mg/dL (74-106); POTASSIUM 4.1 mmol/L (3.5-5.1); SGOT/AST 32 U/L (15-37); SGPT/ALT 24 U/L (13-61); SODIUM 139 mmol/L (136-145); TOT PROT 5.8 g/dl (6.4-8.2)
[2018-02-03] MEDS ORDERED: TAMSULOSIN HCL 0.4 MG CAP ONE (08:32)
[2018-02-03 09:54] LABS: ERYTHROCYTE SEDIMENTATION RATE 44 mm/hr (0-20)
--- NOTE | 2018-02-03 09:55 | CONSULT ---
Consultation: REQUESTING PROVIDER: Roscoe Morrison MD CONSULT REQUEST: We have been asked to medically evaluate this patient for Lung Mass with possible liver mets. HISTORY OF PRESENT ILLNESS: 87 yo M with PMHx of CHF(s/p AICD), CAD(s/p CABG 2009), CKD stage 4, prostate ca (s/p radiation 1994), AAA, and Afib(on Eliquis) presents with 2 day history of chest pain. He describes 7/10 sharp intermittent substernal CP that radiates to his back and last appox. 1 min. Aggrevated by cough and no alleviating factors. No fevers, diarphoresis , association with activity or relief with reset. CTA was done and reveled unchanged AAA and lung mass with possible liver and bone mets. He denies BYNUM, SOB, palpitations, nausea or vomiting. He denies recent weight loss or change in appetite. - Past Medical History Cardio/Vascular: Yes: AFIB, CAD, CHF, HTN, Other (h/o ml pacmaker) Hepatobiliary: Yes: Cholelithiasis Renal/: Yes: Renal Inusuff, Hematuria Musculoskeletal: Yes: Other (gout) Dermatology: Yes: Eczema - Past Surgical History Past Surgical History: Yes: CABG, Cataract Removal, Permanent Pacemaker - Alcohol/Substance Use Hx Alcohol Use: No History of Substance Use: reports: None - Smoking History Smoking history: Former smoker 20 pack year history. Have you smoked in the past 12 months: No If you are a former smoker, when did you quit?: 40 years ago - Social History ADL: Independent lives with and no assist device to ambulate. 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 History of Recent Travel: No REVIEW OF SYSTEMS: CONSTITUTIONAL: Absent: fever, chills, diaphoresis, generalized weakness, malaise, loss of appetite, weight change HEENT: Absent: rhinorrhea, nasal congestion, throat pain, throat swelling, difficulty swallowing, mouth swelling, ear pain, eye pain, visual changes CARDIOVASCULAR: chest pain Absent: , syncope, palpitations, irregular heart rate, lightheadedness, peripheral edema RESPIRATORY: Absent: cough, shortness of breath, dyspnea with exertion, orthopnea, wheezing, stridor, hemoptysis GASTROINTESTINAL: Absent: abdominal pain, abdominal distension, nausea, vomiting, diarrhea, constipation, melena, hematochezia GENITOURINARY: Absent: dysuria, frequency, urgency, hesitancy, hematuria, flank pain, genital pain MUSCULOSKELETAL: Absent: myalgia, arthralgia, joint swelling, back pain, neck pain SKIN: Absent: rash, itching, pallor HEMATOLOGIC/IMMUNOLOGIC: Absent: easy bleeding, easy bruising, lymphadenopathy, frequent infections ENDOCRINE: Absent: unexplained weight gain, unexplained weight loss, heat intolerance, cold intolerance NEUROLOGIC: Absent: headache, focal weakness or paresthesias, dizziness, unsteady gait, seizure, mental status changes, bladder or bowel incontinence PSYCHIATRIC: Absent: anxiety, depression, suicidal or homicidal ideation, hallucinations. PHYSICAL EXAMINATION Vital Signs - 24 hr 02/02/18 02/03/18 02/03/18 22:34 01:53 05:23 Temperature 97.7 F Pulse Rate 60 Pulse Rate [ 60 62 Apical] Respiratory 20 19 17 Rate Blood Pressure 155/67 Blood Pressure 151/66 124/57 L [Right Arm] O2 Sat by Pulse 100 96 96 Oximetry (%) 02/03/18 02/03/18 06:58 09:50 Temperature Pulse Rate Pulse Rate [ 65 Apical] Respiratory 16 Rate Blood Pressure Blood Pressure 121/64 [Right Arm] O2 Sat by Pulse 96 99 Oximetry (%) GENERAL:AAOx3, NAD. HEAD: NCAT EYES: PERRLA, EOMI, sclera anicteric, conjunctiva clear. No lid lag. EARS, NOSE, THROAT: Moist mucous membranes. Hearing aid left ear NECK: Normal range of motion, supple without lymphadenopathy, JVD, or masses. LUNGS: Diminished breath sounds bilaterally. Bibasilar fine rales. No wheezes No accessory muscle use. HEART: RRR, normal S1 and S2 , 2/6 ALEX ABDOMEN: Soft, NTND, NABS, no guarding, no rebound, no masses. No hepatomegaly or splenomegaly. MUSCULOSKELETAL: No CVA tenderness. UPPER EXTREMITIES: 2+ pulses, warm, well-perfused. No cyanosis. No clubbing. No peripheral edema. LOWER EXTREMITIES: 2+ pulses, warm, well-perfused. No calf tenderness. 2+ peripheral edema Bilateral LE NEUROLOGICAL: No focal def. Normal speech. 5/5 strength upper and lower ext. Sensation intact. PSYCHIATRIC: Cooperative. Good eye contact. Appropriate mood and affect. SKIN: Warm, dry, normal turgor, no rashes or lesions noted. Laboratory Results - last 24 hr 02/03/18 02/03/18 02/03/18 00:01 00:01 00:01 WBC 11.3 H RBC 4.21 Hgb 11.5 L Hct 36.3 MCV 86.1 D MCH 27.3 MCHC 31.7 L RDW 20.6 H Plt Count 367 MPV 9.4 Absolute Neuts (auto) 7.8 Neutrophils % 69.1 Lymphocytes % 8.8 Monocytes % 13.9 H Eosinophils % 7.2 H Basophils % 1.0 Nucleated RBC % 0 Poikilocytosis 1+ Anisocytosis 2+ Microcytosis 2+ ESR PT with INR Cancelled INR Cancelled PTT (Actin FS) Cancelled Sodium Potassium Chloride Carbon Dioxide Anion Gap BUN Creatinine Creat Clearance w eGFR Random Glucose Calcium Phosphorus Magnesium Total Bilirubin AST ALT Alkaline Phosphatase Creatine Kinase Troponin I C-Reactive Protein B-Natriuretic Peptide 3635.3 H Total Protein Albumin TSH Urine Color Urine Appearance Urine pH Ur Specific Morgan Urine Protein Urine Glucose (UA) Urine Ketones Urine Blood Urine Nitrite Urine Bilirubin Urine Urobilinogen Ur Leukocyte Esterase 02/03/18 02/03/18 02/03/18 00:01 00:01 00:37 WBC RBC Hgb Hct MCV MCH MCHC RDW Plt Count MPV Absolute Neuts (auto) Neutrophils % Lymphocytes % Monocytes % Eosinophils % Basophils % Nucleated RBC % Poikilocytosis Anisocytosis Microcytosis ESR PT with INR INR PTT (Actin FS) Sodium Potassium Chloride Carbon Dioxide Anion Gap BUN Creatinine Creat Clearance w eGFR Random Glucose Calcium Phosphorus Magnesium Total Bilirubin AST ALT Alkaline Phosphatase Creatine Kinase Cancelled Troponin I Cancelled C-Reactive Protein B-Natriuretic Peptide Total Protein Albumin TSH Cancelled Urine Color Straw Urine Appearance Clear Urine pH 5.0 Ur Specific Morgan 1.009 L Urine Protein Negative Urine Glucose (UA) Negative Urine Ketones Negative Urine Blood Negative Urine Nitrite Negative Urine Bilirubin Negative Urine Urobilinogen Negative Ur Leukocyte Esterase Negative 02/03/18 02/03/18 02/03/18 00:52 00:52 01:17 WBC RBC Hgb Hct MCV MCH MCHC RDW Plt Count MPV Absolute Neuts (auto) Neutrophils % Lymphocytes % Monocytes % Eosinophils % Basophils % Nucleated RBC % Poikilocytosis Anisocytosis Microcytosis ESR PT with INR 13.20 H INR 1.12 H PTT (Actin FS) 24.7 L Sodium 140 Potassium 4.7 Chloride 105 Carbon Dioxide 27 Anion Gap 8 BUN 82 H Creatinine 2.6 H Creat Clearance w eGFR 23.52 Random Glucose 106 Calcium 8.9 Phosphorus 4.9 Magnesium 2.1 Total Bilirubin 0.2 AST 37 ALT 28 Alkaline Phosphatase 75 Creatine Kinase 57 Troponin I 0.02 C-Reactive Protein B-Natriuretic Peptide Total Protein 6.8 Albumin 3.0 L TSH 1.05 Urine Color Urine Appearance Urine pH Ur Specific Morgan Urine Protein Urine Glucose (UA) Urine Ketones Urine Blood Urine Nitrite Urine Bilirubin Urine Urobilinogen Ur Leukocyte Esterase 02/03/18 02/03/18 02/03/18 05:14 05:45 07:48 WBC RBC Hgb Hct MCV MCH MCHC RDW Plt Count MPV Absolute Neuts (auto) Neutrophils % Lymphocytes % Monocytes % Eosinophils % Basophils % Nucleated RBC % Poikilocytosis Anisocytosis Microcytosis ESR PT with INR INR PTT (Actin FS) Sodium 139 Potassium 4.1 Chloride 106 Carbon Dioxide 26 Anion Gap 6 L BUN 83 H Creatinine 2.6 H Creat Clearance w eGFR 23.52 Random Glucose 106 Calcium 8.5 Phosphorus Magnesium Total Bilirubin 0.4 AST 32 ALT 24 Alkaline Phosphatase 63 Creatine Kinase Troponin I Cancelled 0.03 C-Reactive Protein 5.0 H B-Natriuretic Peptide Total Protein 5.8 L Albumin 2.4 L TSH Urine Color Urine Appearance Urine pH Ur Specific Morgan Urine Protein Urine Glucose (UA) Urine Ketones Urine Blood Urine Nitrite Urine Bilirubin Urine Urobilinogen Ur Leukocyte Esterase 02/03/18 07:48 WBC 10.1 H RBC 3.88 L Hgb 10.6 L Hct 33.0 L MCV 85.0 MCH 27.2 MCHC 32.0 RDW 19.8 H Plt Count 300 MPV 8.1 D Absolute Neuts (auto) Neutrophils % Lymphocytes % Monocytes % Eosinophils % Basophils % Nucleated RBC % Poikilocytosis Anisocytosis Microcytosis ESR 44 H PT with INR INR PTT (Actin FS) Sodium Potassium Chloride Carbon Dioxide Anion Gap BUN Creatinine Creat Clearance w eGFR Random Glucose Calcium Phosphorus Magnesium Total Bilirubin AST ALT Alkaline Phosphatase Creatine Kinase Troponin I C-Reactive Protein B-Natriuretic Peptide Total Protein Albumin TSH Urine Color Urine Appearance Urine pH Ur Specific Morgan Urine Protein Urine Glucose (UA) Urine Ketones Urine Blood Urine Nitrite Urine Bilirubin Urine Urobilinogen Ur Leukocyte Esterase Active Medications Generic Name Dose Route Start Last Admin Trade Name Freq PRN Reason Stop Dose Admin Allopurinol 100 mg 02/03/18 10:00 Zyloprim - PO DAILY LUCIEN Apixaban 2.5 mg 02/03/18 10:00 Eliquis - PO BID LUCIEN Aspirin 81 mg 02/03/18 10:00 Ecotrin - PO DAILY LUCIEN Atorvastatin Calcium 10 mg 02/03/18 22:00 Lipitor - PO HS LUCIEN Bacitracin/Polymyxin B Sulfate 1 applic 02/03/18 10:00 Polysporin Ointment - TP DAILY LUCIEN Furosemide 80 mg 02/03/18 10:00 Lasix - PO DAILY LUCIEN Hydralazine HCl 50 mg 02/03/18 10:00 Apresoline - PO BID LUCIEN Metoprolol Tartrate 25 mg 02/03/18 10:00 Lopressor - PO BID LUCIEN Pantoprazole Sodium 40 mg 02/03/18 10:00 Protonix Iv IVPUSH DAILY [facility] ASSESSMENT/PLAN: Dispo: We will continue to follow the patient. Thank you for this consultative opportunity. Problem List - Problems (1) Lung mass Assessment/Plan: Lung mass suspicious for malignancy. * Will need tissue diagnosis to establish treatment options. * Good performance status; * ECOG performance status of 2 * Will contact IR to assess most likely sight of biopsy. (2) Chest pain Assessment/Plan: Cardiology consult appreciated. * ACS r/o Troponin's (-) x3 * defer further w/u at this time * Imdur added. (3) Liver mass (4) Bone lesion (5) PNA (pneumonia) Assessment/Plan: possible obstructive PNA * ID consult appreciated. * Empiric Zosyn * await c/s. Qualifiers: (6) CKD (chronic kidney disease) stage 4, GFR 15-29 ml/min Assessment/Plan: stable at this time. * Will continue to monitor renal function * renal dose meds * avoid nephrotoxic meds (7) CAD (coronary artery disease) Assessment/Plan: ACS less likely * ASA held for biopsy * continue BB * Imdur added. (8) CHF (congestive heart failure) Assessment/Plan: Continue home meds. * Furosemide (Lasix -) 80 mg PO DAILY * Metoprolol Tartrate (Lopressor -) 25 mg PO BID * tele monitoring * monitor I/O's * salt restricted diet. (9) Atrial fibrillation Assessment/Plan: Eliquis held secondary to need for tissue biopsy * started on heparin 5000 units SQ TID Visit type - Emergency Visit Emergency Visit: Yes ED Registration Date: 02/03/18 Care time: The patient presented to the Emergency Department on the above date and was hospitalized for further evaluation of their emergent condition. - New Patient This patient is new to me today: Yes Date on this admission: 02/04/18 - Critical Care Critical Care patient: No
[2018-02-03] MEDS ORDERED: ASPIRIN COATED 81 MG TABLET.EC PO SCH (10:00)
[2018-02-03] MEDS ORDERED: APIXABAN 2.5 MG TABLET PO SCH (10:00)
--- NOTE | 2018-02-03 10:38 | CON.CARD ---
Consult Consult Specialty:: Cardiology Referred by:: Thor Morrison Reason for Consultation:: chest pain - History of Present Illness Chief Complaint: chest pain History of Present Illness: This is an 87M with h/o AAA, CAD, CKD followed by Dr Isabel Daily, CABG, chronic A -fib on Eliquis, chronic diastolic CHF EF 70% 2017 at [facility], memory loss, 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 He has worsening chronic leg edema and pruritis. CT done no dissection, PE. Mild abdominal aortic aneurysm 3.8 cm, RLL mass and possible liver mets. 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) Hepatobiliary: Yes: Cholelithiasis Renal/: Yes: Renal Inusuff, Hematuria Musculoskeletal: Yes: Other (gout) Dermatology: Yes: Eczema - Past Surgical History Past Surgical History: Yes: CABG, Cataract Removal, Permanent Pacemaker - Alcohol/Substance Use Hx Alcohol Use: No History of Substance Use: reports: None - Smoking History Smoking history: Former smoker Have you smoked in the past 12 months: No If you are a former smoker, when did you quit?: 40 years ago - Social History ADL: Independent History of Recent Travel: No Home Medications - Allergies Allergies/Adverse Reactions: Allergies Allergy/AdvReac Type Severity Reaction Status Date / Time No Known Allergies Allergy Verified 12/07/17 11:49 - Home Medications Home Medications: Ambulatory Orders Allopurinol [Zyloprim -] 100 mg PO DAILY 08/23/16 Aspirin [Ecotrin] 81 mg PO DAILY 08/23/16 Atorvastatin Ca [Lipitor] 10 mg PO ASDIR 08/23/16 Folic Acid 1 mg PO DAILY 08/23/16 Furosemide [Lasix] 40 mg PO TID 08/23/16 Hydralazine HCl 50 mg PO BID 08/23/16 Metoprolol Tartrate [Lopressor -] 25 mg PO BID 08/23/16 Tamsulosin HCl [Flomax] 0.4 mg PO DAILY 08/23/16 Apixaban [Eliquis -] 2.5 mg PO BID 02/02/18 Hydroxyzine HCl 25 mg PO HS 02/02/18 Vital Signs: Vital Signs Temperature 97.7 F 02/02/18 22:34 Pulse Rate 65 02/03/18 09:50 Respiratory Rate 16 02/03/18 09:50 Blood Pressure 121/64 02/03/18 09:50 O2 Sat by Pulse Oximetry (%) 99 02/03/18 09:50 Constitutional: Yes: No Distress, Calm Eyes: Yes: Conjunctiva Clear, Ptosis HENT: Yes: Atraumatic, Normocephalic Neck: Yes: Trachea Midline Respiratory: Yes: CTA Bilaterally Gastrointestinal: Yes: Normal Bowel Sounds, Soft Cardiovascular: Yes: Regular Rate and Rhythm JVD: Yes Carotid Bruit: No PMI: Non-Displaced Heart Sounds: Yes: S1, S2 Murmur: Yes: Systolic Murmur, Grade 2 Extremities: Yes: WNL Edema: Yes Edema: LLE: 2+, RLE: 2+ Peripheral Pulses WNL: Yes - Other Data Labs, Other Data: CBC, BMP 02/03/18 07:48 02/03/18 07:48 INR, PTT INR 1.12 (0.83-1.09) H 02/03/18 01:17 Troponin, BNP 02/03/18 02/03/18 02/03/18 00:01 00:01 00:52 Troponin I Cancelled 0.02 B-Natriuretic Peptide 3635.3 H 02/03/18 02/03/18 05:14 05:45 Troponin I Cancelled 0.03 B-Natriuretic Peptide Troponin, BNP 02/03/18 02/03/18 02/03/18 00:01 00:01 00:52 Troponin I Cancelled 0.02 B-Natriuretic Peptide 3635.3 H 02/03/18 02/03/18 05:14 05:45 Troponin I Cancelled 0.03 B-Natriuretic Peptide Imaging - Results Chest X-ray: Report Reviewed X-ray: Report Reviewed EKG: Report Reviewed (PPM, PVCs) Assessment/Plan This is an 87M with h/o AAA, CAD, CKD followed by Dr Isabel Daily, CABG, chronic A -fib on Eliquis, chronic diastolic CHF EF 70% 2017 at [facility], memory loss, 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 He has worsening chronic leg edema and pruritis. CT done no dissection, PE. Mild abdominal aortic aneurysm 3.8 cm, RLL mass and possible liver mets. Plan 1. chest pain- doubt ischemic pain, would defer ischemia workup given memory loss, CT findings and CKD. -add imdur 30 mg daily. -trend cardiac enzymes. -conservative care 2. afib--continue eliquis and BB. Rates are controlled. 3. PPM--functioning well, recently checked. will follow with you.
[2018-02-03] MEDS: FUROSEMIDE 40 MG TABLET (FP) PO SCH (10:59)
[2018-02-03] MEDS: METOPROLOL TARTRATE 25 MG TABLET (FP) PO SCH ×2 (10:59→21:57)
[2018-02-03] MEDS: hydrALAZINE HCL 25 MG TABLET (FP) PO SCH ×2 (10:59→21:57)
[2018-02-03] MEDS: PANTOPRAZOLE SODIUM 40 MG VIAL IVPUSH SCH (10:59)
[2018-02-03] MEDS: ALLOPURINOL 100 MG TABLET (FP) PO SCH (10:59)
--- NOTE | 2018-02-03 11:29 | PN ---
Progress Note (short form) - Note Progress Note: ID Consult dictated 87 y/o male admitted with chest pain CT chest RLL lung mass. SHELLY consolidation, possible mass. Probable metastatic ca ? Post obstructive pneumonia Azotemia Await c/s Empiric zosyn Tissue dx
[2018-02-03] MEDS: BACITRACIN/POLYMYXIN B SULFATE 15 GM TUBE TP SCH (11:43)
--- NOTE | 2018-02-03 12:08 | CON.PULM ---
Consult Consult Specialty:: PULMONARY Referred by:: Dr. Morrison Reason for Consultation:: lung mass/pneumonia - History of Present Illness Chief Complaint: shortness of breath History of Present Illness: 87yo male with h/o CAD s/p CABG, LV diastolic dysfunction, s/p ICD, prostate ca , AAA, atrial fibrillation on eliquis who presents with worsening shortness of breath x 3 days. He does report a nonproductive cough and chest discomfort with coughing. No wheezing. No fevers, chills or sweats. No unintentional weight loss and maintains a good appetite. CTA chest done showing RLL mass with possible liver and bone mets. He does report back pain which is more chronic and positional. He is a former smoker but remote. 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 - History Source History Provided By: Patient, Family Member, Medical Record Limitations to Obtaining History: No Limitations - Past Medical History Cardio/Vascular: Yes: AFIB, CAD, CHF, HTN, Other (h/o ml pacmaker) Hepatobiliary: Yes: Cholelithiasis Renal/: Yes: Renal Inusuff, Hematuria Musculoskeletal: Yes: Other (gout) Dermatology: Yes: Eczema - Past Surgical History Past Surgical History: Yes: CABG, Cataract Removal, Permanent Pacemaker - Alcohol/Substance Use Hx Alcohol Use: No History of Substance Use: reports: None - Smoking History Smoking history: Former smoker Have you smoked in the past 12 months: No If you are a former smoker, when did you quit?: 40 years ago - Social History ADL: Independent History of Recent Travel: No Home Medications - Allergies Allergies/Adverse Reactions: Allergies Allergy/AdvReac Type Severity Reaction Status Date / Time No Known Allergies Allergy Verified 12/07/17 11:49 - Home Medications Home Medications: Ambulatory Orders Allopurinol [Zyloprim -] 100 mg PO DAILY 08/23/16 Aspirin [Ecotrin] 81 mg PO DAILY 08/23/16 Atorvastatin Ca [Lipitor] 10 mg PO ASDIR 08/23/16 Folic Acid 1 mg PO DAILY 08/23/16 Furosemide [Lasix] 40 mg PO TID 08/23/16 Hydralazine HCl 50 mg PO BID 08/23/16 Metoprolol Tartrate [Lopressor -] 25 mg PO BID 08/23/16 Tamsulosin HCl [Flomax] 0.4 mg PO DAILY 08/23/16 Apixaban [Eliquis -] 2.5 mg PO BID 02/02/18 Hydroxyzine HCl 25 mg PO HS 02/02/18 Review of Systems - Review of Systems Constitutional: reports: Weakness. denies: Chills, Fever Eyes: denies: Recent Change in Vision HENT: denies: Nasal Congestion, Throat Pain Neck: denies: Decreased ROM, Stiffness Cardiovascular: reports: Chest Pain, Shortness of Breath. denies: Edema, Palpitations Respiratory: reports: Cough. denies: Hemoptysis, Wheezing Gastrointestinal: denies: Abdominal Pain, Nausea, Vomiting Genitourinary: denies: Dysuria, Hematuria Neurological: denies: Dizziness, Headache Endocrine: denies: Unexplained Weight Loss Physical Exam Vital Sings: Vital Signs Temperature 97.7 F 02/02/18 22:34 Pulse Rate 65 02/03/18 09:50 Respiratory Rate 16 02/03/18 09:50 Blood Pressure 121/64 02/03/18 09:50 O2 Sat by Pulse Oximetry (%) 99 02/03/18 09:50 Constitutional: Yes: Calm Eyes: Yes: Conjunctiva Clear, EOM Intact HENT: Yes: Atraumatic, Normocephalic Neck: Yes: Supple, Trachea Midline Cardiovascular: Yes: Pulse Irregular Respiratory: Yes: Rales (basilar) ...Clubbing: No Gastrointestinal: Yes: Normal Bowel Sounds, Soft, Abdomen, Obese. No: Tenderness Edema: No Neurological: Yes: Alert, Oriented Labs: CBC, BMP 02/03/18 07:48 02/03/18 07:48 Imaging - Results Chest X-ray: Report Reviewed, Image Reviewed (RLL nodule, SHELLY mass vs consolidation) Problem List - Problems (1) Lung mass Code(s): R91.8 - OTHER NONSPECIFIC ABNORMAL FINDING OF LUNG FIELD (2) PNA (pneumonia) Code(s): J18.9 - PNEUMONIA, UNSPECIFIED ORGANISM Qualifiers: Pneumonia type: due to unspecified organism Laterality: unspecified laterality Lung location: unspecified part of lung Qualified Code(s): J18.9 - Pneumonia, unspecified organism (3) Bone lesion Code(s): M89.9 - DISORDER OF BONE, UNSPECIFIED (4) CKD (chronic kidney disease) stage 4, GFR 15-29 ml/min Code(s): N18.4 - CHRONIC KIDNEY DISEASE, STAGE 4 (SEVERE) (5) Liver mass Code(s): R16.0 - HEPATOMEGALY, NOT ELSEWHERE CLASSIFIED (6) Atrial fibrillation Code(s): I48.91 - UNSPECIFIED ATRIAL FIBRILLATION Qualifiers: Atrial fibrillation type: permanent Qualified Code(s): I48.2 - Chronic atrial fibrillation (7) CAD (coronary artery disease) Code(s): I25.10 - ATHSCL HEART DISEASE OF [place] CORONARY ARTERY W/O ANG PCTRS (8) CHF (congestive heart failure) Code(s): I50.9 - HEART FAILURE, UNSPECIFIED (9) Hx of CABG Code(s): Z95.1 - PRESENCE OF AORTOCORONARY BYPASS GRAFT Assessment/Plan Lung Mass - r/o Metastatic Disease r/o Pneumonia CAD s/p CABG LV Diastolic Dysfunction Atrial Fibrillation CKD - agree with antibiotics - f/u cultures - hold ASA, eliquis as pt will likely need CT guided needle biopsy, can bridge with heparin gtt - rate control - bone scan to investigate possible lytic lesions on CT - O2 as needed Thank you for this consult Kyle Dyson MD
--- NOTE | 2018-02-03 13:11 | CONS ---
INFECTIOUS DISEASE CONSULTATION DATE OF CONSULTATION: 02/03/2018 The patient is an 87-year-old male with a history of prostate cancer in the past treated with radiation, now admitted with chest pain. He was admitted to the emergency room on February 02, 2018, with complaints of chest and back pain. He reports the pain is predominantly left sided with radiation to the back. It is exacerbated by cough. He denies any shortness of breath. He denies any sputum production or hemoptysis. No reports of recent fever or chills. In the emergency room, patient was afebrile. A CAT scan of the chest was performed and showed evidence of chronic lung disease, a right lower lobe lung mass lesion, as well as a left upper lobe consolidation and possible mass lesion. In addition, there were findings of a possible pancreatic mass and liver and bone metastases. At the present time, he is awake and alert. He is not acutely short of breath. He complains of left-sided chest pain with cough. He lives at home with family members. He denies ill contacts. Positive history of tobacco, stopped approximately 30 years ago. 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 No recent travel. No recent hospitalizations. Patient states he is up to date with respect to influenza and pneumococcal vaccines. PAST MEDICAL HISTORY: Positive for congestive heart failure, coronary artery disease, chronic kidney disease, prostate cancer, abdominal aortic aneurysm, atrial fibrillation. PAST SURGICAL HISTORY: Status post coronary artery bypass graft, implanted defibrillator. ALLERGIES: No known allergies. MEDICATIONS: Flomax, Eliquis, Zyloprim, Ecotrin, Lipitor, folic acid, Lasix, hydralazine, Lopressor. 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 Former smoker. Negative EtOH. SYSTEMS REVIEW: Neurologic: No loss of consciousness, seizure activity, focal weakness. Cardiac: As per HPI. Respiratory: As per HPI. Gastrointestinal: Negative vomiting or diarrhea. Genitourinary: Negative for urinary tract infection. LABORATORY DATA: White count 10.1, hematocrit 33.0, platelet count 300. BUN 83, creatinine 2.6. Sedimentation rate 44. C-reactive protein 5.0. Urinalysis: Negative leukocyte esterase. PHYSICAL EXAMINATION: General: He is awake and alert. He is in no acute distress. His breathing is non-labored on nasal cannula. Vital Signs: Temperature 97.7; blood pressure 121/64; pulse 65, regular; respirations 18 per minute. HEENT: Sclerae are anicteric. Dry mucous membranes. Heart: Sounds S1, S2. Lungs: Diminished breath sounds throughout with scattered rhonchi. Abdomen: Obese, soft, nontender. Extremities: Positive for bilateral lower extremity edema. IMPRESSION: An 87-year-old male admitted with chest pain. CAT scan shows right lower lobe lung mass, left upper lobe consolidation, possible mass, and possible evidence of liver and bone metastases. 1. Probable metastatic cancer, unclear primary. 2. Rule out post-obstructive pneumonia. 3. Azotemia. Obtain blood cultures, sputum culture and cytology, urine legionella antigen. Empiric antibiotic coverage for possible post-obstructive pneumonia with Zosyn adjusted for azotemia. Will require tissue diagnosis. Case was discussed with the patient's daughter who was present at the time of the examination. Thank you for the kind referral. RENETTA CASTAÑEDA M.D. [id number]
[2018-02-03] MEDS ORDERED: PIPERACILLIN/TAZOBACTAM 2.25 GM VIAL IVPB ONE ×2 (14:30→20:14)
[2018-02-03] MEDS: PIPERACILLIN/TAZOB 2.25 GM 2.25 GM in DEXTROSE 5%-WATER - 50 ML IVPB SCH ×2 (15:11→22:23)
[2018-02-03] MEDS: ACETAMINOPHEN 325 MG TABLET (FP) PO PRN ×2 (16:55→21:57)
[2018-02-03] MEDS ORDERED: traMADol HCL 50 MG TABLET PO PRN (18:43)
--- NOTE | 2018-02-03 18:45 | PN ---
Teaching Attending Note Name of Resident: Maximus Brown ATTENDING PHYSICIAN STATEMENT I saw and evaluated the patient. I reviewed the resident's note and discussed the case with the resident. I agree with the resident's findings and plan as documented. SUBJECTIVE: Patient seen and examined Discussed with family - and children. Lung mass, liver mass, ?? pancreatic mass , ?? bone mets. Distant history of prostate ca treated with RT in 1994. Mutiple co-morbid conditions-- cardiac, renal, aneurysm. Will need to discontinue ASA, and eliquis and cover with heparin prior to I.R. directed biopsy Would favor liver biopsy if feasible. Baseed upon results of tissue , further recommendations. OBJECTIVE: ASSESSMENT AND PLAN:
[2018-02-03] MEDS ORDERED: DEXTROSE 5%-WATER - 50 ML IVPB ONE (20:15)
[2018-02-03] MEDS: ATORVASTATIN CA 10 MG TABLET (FP) PO SCH (21:57)
[2018-02-03] MEDS: HEPARIN NA (PORCINE) 5,000 UNITS/ML 1ML VIAL SQ SCH (21:57)
[2018-02-04] MEDS ORDERED: DEXTROSE 5%-WATER - 50 ML IVPB ONE ×3 (05:24→21:52)
[2018-02-04] MEDS ORDERED: PIPERACILLIN/TAZOBACTAM 2.25 GM VIAL IVPB ONE ×3 (05:24→21:52)
[2018-02-04] MEDS: HEPARIN NA (PORCINE) 5,000 UNITS/ML 1ML VIAL SQ SCH ×2 (05:49→15:27)
[2018-02-04] MEDS: PIPERACILLIN/TAZOB 2.25 GM 2.25 GM in DEXTROSE 5%-WATER - 50 ML IVPB SCH ×3 (05:49→22:09)
[2018-02-04] MEDS: ACETAMINOPHEN 325 MG TABLET (FP) PO PRN ×2 (08:24→17:51)
[2018-02-04 09:03] LABS: BASO % 0.6 % (0-2.0); EOS % 5.9 % (0-4.5); LYMPH % 5.6 % (8-40); MCH 27.4 pg (25.7-33.7); MCHC 32.4 g/dl (32.0-35.9); MEAN CELL VOLUME 84.5 fl (80-96); MONO % 7.5 % (3.8-10.2); NEUT % 80.4 % (42.8-82.8); PLATELET COUNT 354 K/MM3 (134-434); RBC 4.38 M/mm3 (4.00-5.60); WHITE BLOOD COUNT 10.2 K/mm3 (4.0-10.0)
[2018-02-04 09:34] LABS: ALBUMIN 2.7 g/dl (3.4-5.0); ALK PHOS 68 U/L (45-117); ANION GAP 10 MMOL/L (8-16); BILIRUBIN,TOTAL 0.6 mg/dL (0.2-1); BLOOD UREA NITROGEN 77 mg/dL (7-18); CALCIUM 8.8 mg/dL (8.5-10.1); CHLORIDE 105 mmol/L (98-107); CO2 24 mmol/L (21-32); CREATININE 3.1 mg/dL (0.55-1.3); GLUCOSE,RANDOM 144 mg/dL (74-106); POTASSIUM 4.3 mmol/L (3.5-5.1); SGOT/AST 35 U/L (15-37); SGPT/ALT 28 U/L (13-61); SODIUM 139 mmol/L (136-145); TOT PROT 6.3 g/dl (6.4-8.2)
--- NOTE | 2018-02-04 09:54 | EKG ---
Test Reason : Blood Pressure : / mmHG Vent. Rate : 075 BPM Atrial Rate : 075 BPM P-R Int : 000 ms QRS Dur : 152 ms QT Int : 456 ms P-R-T Axes : 000 082 248 degrees QTc Int : 509 ms WIDE QRS RHYTHM WITH FREQUENT ventricular-paced complexes AND PREMATURE SUPRAVENTRICULAR COMPLEXES IN A PATTERN OF BIGEMINY NON-SPECIFIC INTRA-VENTRICULAR CONDUCTION BLOCK ABNORMAL ECG WHEN COMPARED WITH ECG OF 23-AUG-2016 10:13, PREMATURE SUPRAVENTRICULAR COMPLEXES ARE NOW PRESENT VENT. RATE HAS INCREASED BY 10 BPM Confirmed by MICHELLE BRIGHT, EVELIA ([id number]) on 02/04/2018 9:54:24 AM Referred By: Confirmed By:EVELIA MARTINZE MD
--- NOTE | 2018-02-04 10:37 | PN ---
Progress Note, Physician History of Present Illness: OOB in chair C/O L sided pleuritic pain, worse with cough/ deep inspiration Occasional cough, white sputum No c/o fever/ chills - Current Medication List Current Medications: Active Medications Acetaminophen (Tylenol -) 650 mg PO Q6H PRN PRN Reason: PAIN 6-10 Last Admin: 02/04/18 08:24 Dose: 650 mg Allopurinol (Zyloprim -) 100 mg PO DAILY [facility] Last Admin: 02/03/18 10:59 Dose: 100 mg Atorvastatin Calcium (Lipitor -) 10 mg PO HS [facility] Last Admin: 02/03/18 21:57 Dose: 10 mg Bacitracin/Polymyxin B Sulfate (Polysporin Ointment -) 1 applic TP DAILY [facility] Last Admin: 02/03/18 11:43 Dose: Not Given Furosemide (Lasix -) 80 mg PO DAILY [facility] Last Admin: 02/03/18 10:59 Dose: 80 mg Heparin Sodium (Porcine) (Heparin -) 5,000 unit SQ TID [facility] Last Admin: 02/04/18 05:49 Dose: 5,000 unit Hydralazine HCl (Apresoline -) 50 mg PO BID [facility] Last Admin: 02/03/18 21:57 Dose: 50 mg Piperacillin Sod/Tazobactam (Sod 2.25 gm/ Dextrose) 50 mls @ 100 mls/hr IVPB Q8H [facility]; Protocol Last Admin: 02/04/18 05:49 Dose: 100 mls/hr Metoprolol Tartrate (Lopressor -) 25 mg PO BID [facility] Last Admin: 02/03/18 21:57 Dose: 25 mg Pantoprazole Sodium (Protonix Iv) 40 mg IVPUSH DAILY [facility] Last Admin: 02/03/18 10:59 Dose: 40 mg Tramadol HCl (Ultram -) 50 mg PO Q6H PRN PRN Reason: PAIN LEVEL 6-10 - Objective Vital Signs: Vital Signs Temperature 97.4 F L 02/04/18 06:00 Pulse Rate 70 02/04/18 06:00 Respiratory Rate 20 02/04/18 06:00 Blood Pressure 138/70 02/04/18 06:00 O2 Sat by Pulse Oximetry (%) 97 02/03/18 21:00 Constitutional: Yes: No Distress Cardiovascular: Yes: Regular Rate and Rhythm, S1, S2 Respiratory: Yes: CTA Bilaterally Gastrointestinal: Yes: Normal Bowel Sounds, Soft. No: Tenderness Edema: Yes Labs: CBC, BMP 02/04/18 08:40 02/04/18 08:40 INR, PTT INR 1.12 (0.83-1.09) H 02/03/18 01:17 Assessment/Plan Probable metastatic ca ?post obstructive pneumonia Azotemia Await cultures, tissue dx Continue zosyn
[2018-02-04] MEDS: BACITRACIN/POLYMYXIN B SULFATE 15 GM TUBE TP SCH (11:01)
[2018-02-04] MEDS: METOPROLOL TARTRATE 25 MG TABLET (FP) PO SCH ×2 (11:01→22:09)
[2018-02-04] MEDS: ALLOPURINOL 100 MG TABLET (FP) PO SCH (11:01)
[2018-02-04] MEDS: FUROSEMIDE 40 MG TABLET (FP) PO SCH (11:01)
[2018-02-04] MEDS: hydrALAZINE HCL 25 MG TABLET (FP) PO SCH ×2 (11:01→22:09)
[2018-02-04] MEDS: PANTOPRAZOLE SODIUM 40 MG VIAL IVPUSH SCH (11:01)
--- NOTE | 2018-02-04 11:06 | PN ---
Progress Note, Physician History of Present Illness: pulmonary alert,oob-chair,c/o left sided cp,+ cough beige sputum - Current Medication List Current Medications: Active Medications Acetaminophen (Tylenol -) 650 mg PO Q6H PRN PRN Reason: PAIN 6-10 Last Admin: 02/04/18 08:24 Dose: 650 mg Allopurinol (Zyloprim -) 100 mg PO DAILY [facility] Last Admin: 02/04/18 11:01 Dose: 100 mg Atorvastatin Calcium (Lipitor -) 10 mg PO HS [facility] Last Admin: 02/03/18 21:57 Dose: 10 mg Bacitracin/Polymyxin B Sulfate (Polysporin Ointment -) 1 applic TP DAILY [facility] Last Admin: 02/04/18 11:01 Dose: 1 applic Furosemide (Lasix -) 80 mg PO DAILY [facility] Last Admin: 02/04/18 11:01 Dose: 80 mg Heparin Sodium (Porcine) (Heparin -) 5,000 unit SQ TID [facility] Last Admin: 02/04/18 05:49 Dose: 5,000 unit Hydralazine HCl (Apresoline -) 50 mg PO BID [facility] Last Admin: 02/04/18 11:01 Dose: 50 mg Piperacillin Sod/Tazobactam (Sod 2.25 gm/ Dextrose) 50 mls @ 100 mls/hr IVPB Q8H [facility]; Protocol Last Admin: 02/04/18 05:49 Dose: 100 mls/hr Metoprolol Tartrate (Lopressor -) 25 mg PO BID [facility] Last Admin: 02/04/18 11:01 Dose: 25 mg Pantoprazole Sodium (Protonix Iv) 40 mg IVPUSH DAILY [facility] Last Admin: 02/04/18 11:01 Dose: 40 mg Tramadol HCl (Ultram -) 50 mg PO Q6H PRN PRN Reason: PAIN LEVEL 6-10 - Objective Vital Signs: Vital Signs Temperature 98.0 F 02/04/18 11:04 Pulse Rate 66 02/04/18 11:04 Respiratory Rate 18 02/04/18 11:04 Blood Pressure 117/59 L 02/04/18 11:04 O2 Sat by Pulse Oximetry (%) 97 02/03/18 21:00 Constitutional: Yes: Well Nourished, Calm Eyes: Yes: WNL HENT: Yes: WNL Neck: Yes: WNL Cardiovascular: Yes: Pulse Irregular, S1, S2 Respiratory: Yes: Rhonchi (few rhonchi) Gastrointestinal: Yes: Normal Bowel Sounds, Soft Extremities: Yes: WNL Edema: No Labs: CBC, BMP 02/04/18 08:40 02/04/18 08:40 INR, PTT INR 1.12 (0.83-1.09) H 02/03/18 01:17 Assessment/Plan Problem List - Problems (1) Lung mass Code(s): R91.8 - OTHER NONSPECIFIC ABNORMAL FINDING OF LUNG FIELD (2) PNA (pneumonia) Code(s): J18.9 - PNEUMONIA, UNSPECIFIED ORGANISM Qualifiers: Pneumonia type: due to unspecified organism Laterality: unspecified laterality Lung location: unspecified part of lung Qualified Code(s): J18.9 - Pneumonia, unspecified organism (3) Bone lesion Code(s): M89.9 - DISORDER OF BONE, UNSPECIFIED (4) CKD (chronic kidney disease) stage 4, GFR 15-29 ml/min Code(s): N18.4 - CHRONIC KIDNEY DISEASE, STAGE 4 (SEVERE) (5) Liver mass Code(s): R16.0 - HEPATOMEGALY, NOT ELSEWHERE CLASSIFIED (6) Atrial fibrillation Code(s): I48.91 - UNSPECIFIED ATRIAL FIBRILLATION Qualifiers: Atrial fibrillation type: permanent Qualified Code(s): I48.2 - Chronic atrial fibrillation (7) CAD (coronary artery disease) Code(s): I25.10 - ATHSCL HEART DISEASE OF [place] CORONARY ARTERY W/O ANG PCTRS (8) CHF (congestive heart failure) Code(s): I50.9 - HEART FAILURE, UNSPECIFIED (9) Hx of CABG Code(s): Z95.1 - PRESENCE OF AORTOCORONARY BYPASS GRAFT Assessment/Plan Lung Mass - r/o Metastatic Disease r/o Pneumonia CAD s/p CABG LV Diastolic Dysfunction Atrial Fibrillation CKD - antibiotics as per ID - hold ASA, eliquis as pt will likely need CT guided needle biopsy, can bridge with heparin gtt - rate control - bone scan to investigate possible lytic lesions on CT - O2 as needed DR DE LEON
--- NOTE | 2018-02-04 12:14 | CONS ---
DATE OF CONSULTATION: 02/04/2018 REASON FOR CONSULTATION: Gallstones. REQUESTING PHYSICIAN: This is an inpatient consultation requested by Dr. Roscoe Morrison. BRIEF HISTORY: This is an 87-year-old male with multiple medical problems including heart failure, coronary artery disease, pneumonia, pacemaker placement, prostate cancer, TIA, chronic kidney disease, who presented to [facility] complaining of chest pain radiating to his back. He was evaluated for a possible dissecting aortic aneurysm. 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 He was also noted to have gallstones. Patient was admitted to the hospital, has been seen by the oncology service, being arranged for needle biopsy of these lesions, and request was made for surgical evaluation for gallstones. The patient is on a blood thinner, which he stopped yesterday. He currently denies pain. He no longer has nausea. PAST MEDICAL HISTORY: As stated in HPI. In addition, he has hyperlipidemia, gout. PAST SURGICAL HISTORY: Includes pacemaker placement, coronary artery bypass graft, and radiation treatment of prostate cancer. MEDICATIONS: His home medications have been reviewed. They include Eliquis, hydroxyzine, Flomax, hydralazine, Lipitor, Lasix, allopurinol, and aspirin. FAMILY HISTORY: Noncontributory. SOCIAL HISTORY: Significant for quitting tobacco in the past. DIET: He is currently on regular diet in the hospital. REVIEW OF SYSTEMS: General: Denies fatigue. Cardiac: Currently no chest pain. Respiratory: Admits to mild shortness of breath. Gastrointestinal: Currently no abdominal pain. Denies fatty food intolerance. No diarrhea. No blood in his stool. Genitourinary: Denies dysuria. Musculoskeletal: Admits to arthritic pain. Psychiatric: Denies anxiety. PHYSICAL EXAMINATION: General: This is a well-developed, well-nourished 87-year-old male in no distress. Vital signs: He is afebrile. His vital signs are stable. HEENT: His head is normocephalic. His sclerae are anicteric. Neck: Supple. Chest: Has diminished breath sounds on the right lower chest. Abdomen: Soft, nontender. There are no surgical scars, no obvious hernias. Extremities: Have trace edema. REVIEW OF HIS LABORATORY: His white blood cell count is normal at 10.2. He does not have a shift. His sedimentation rate is elevated at 44. His chemistries show a BUN of 77, a creatinine of 3.1. His CA 19-9 level is elevated at 117. His albumin is low at 2.7. ASSESSMENT: This is an 87-year-old male with multiple medical problems including cardiac, renal, pulmonary, and vascular. He also has had transient ischemic attacks in the past. Patient would be at high risk for any operation. Furthermore, he appears to have a likely metastatic malignancy and would not address possible biliary colic at this time. He has no history of fatty food intolerance and would not suggest removal of his gallbladder. If, in the future, during the course of his treatment of his possible cancer, if he were to develop acute cholecystitis, would treat him with interventional radiology drainage of the gallbladder until his likely malignancy has been treated. At this point, no general surgical intervention. If he does require surgery for his pancreas, this should be addressed by a pancreatic surgeon, and also suspect that any surgery would be best done at a tertiary care center. DO JOSE CHEATHAM/[id number]
--- NOTE | 2018-02-04 13:29 | PN ---
Progress Note, Physician Chief Complaint: Left shoulder pain History of Present Illness: This is an 87M with h/o AAA, CAD, CKD followed by Dr Isabel Daily, CABG, chronic A -fib on Eliquis, chronic diastolic CHF EF 70% 2017 at [facility], memory loss, 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 He has worsening chronic leg edema and pruritis. CT done no dissection, PE. Mild abdominal aortic aneurysm 3.8 cm, RLL mass and possible liver mets. 02/04/18 He is complaining of left shoulder pain. Worse with movement. - Current Medication List Current Medications: Active Medications Acetaminophen (Tylenol -) 650 mg PO Q6H PRN PRN Reason: PAIN 6-10 Last Admin: 02/04/18 08:24 Dose: 650 mg Allopurinol (Zyloprim -) 100 mg PO DAILY [facility] Last Admin: 02/04/18 11:01 Dose: 100 mg Atorvastatin Calcium (Lipitor -) 10 mg PO HS [facility] Last Admin: 02/03/18 21:57 Dose: 10 mg Bacitracin/Polymyxin B Sulfate (Polysporin Ointment -) 1 applic TP DAILY [facility] Last Admin: 02/04/18 11:01 Dose: 1 applic Furosemide (Lasix -) 80 mg PO DAILY [facility] Last Admin: 02/04/18 11:01 Dose: 80 mg Heparin Sodium (Porcine) (Heparin -) 5,000 unit SQ TID [facility] Last Admin: 02/04/18 05:49 Dose: 5,000 unit Hydralazine HCl (Apresoline -) 50 mg PO BID [facility] Last Admin: 02/04/18 11:01 Dose: 50 mg Piperacillin Sod/Tazobactam (Sod 2.25 gm/ Dextrose) 50 mls @ 100 mls/hr IVPB Q8H [facility]; Protocol Last Admin: 02/04/18 05:49 Dose: 100 mls/hr Metoprolol Tartrate (Lopressor -) 25 mg PO BID [facility] Last Admin: 02/04/18 11:01 Dose: 25 mg Pantoprazole Sodium (Protonix Iv) 40 mg IVPUSH DAILY [facility] Last Admin: 02/04/18 11:01 Dose: 40 mg Tramadol HCl (Ultram -) 50 mg PO Q6H PRN PRN Reason: PAIN LEVEL 6-10 - Objective Vital Signs: Vital Signs Temperature 98.0 F 02/04/18 11:04 Pulse Rate 66 02/04/18 11:04 Respiratory Rate 18 02/04/18 11:04 Blood Pressure 117/59 L 02/04/18 11:04 O2 Sat by Pulse Oximetry (%) 97 02/03/18 21:00 Constitutional: Yes: No Distress Eyes: Yes: WNL HENT: Yes: WNL Neck: Yes: WNL Cardiovascular: Yes: Regular Rate and Rhythm (NL S1S2 no MRHG) Respiratory: Yes: CTA Bilaterally Gastrointestinal: Yes: Normal Bowel Sounds, Soft Extremities: Yes: WNL Edema: Yes Edema: LLE: 1+, RLE: 1+ Neurological: Yes: Alert, Oriented (Grossly nonfocal) Labs: CBC, BMP 02/04/18 08:40 02/04/18 08:40 INR, PTT INR 1.12 (0.83-1.09) H 02/03/18 01:17 Assessment/Plan 87M with h/o AAA, CAD, CKD followed by Dr Isabel Daily, CABG, chronic A-fib on Eliquis, chronic diastolic CHF EF 70% 2017 at [facility], memory loss, 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 He has worsening chronic leg edema and pruritis. CT done no dissection, PE. Mild abdominal aortic aneurysm 3.8 cm, RLL mass and possible liver mets. Plan Chest pain Non cardiac left shoulder pain. Worse when he moves it. Cardiac enzymes are negative Left should pain is improving on Tramadol AFIB AC with Eliquis Rate control with BB. PPM Functioning well, recently checked. CAD Continue Statin Lung Mass Can hold AC and ASA if biopsy is planned Will follow with you.
--- NOTE | 2018-02-04 17:48 | PN ---
Physical Exam: SUBJECTIVE: Patient seen and examined at bedside. No overnight events. No new complaints. Continues to have some pain with deep inspirations. Denies BYNUM, abdominal pain, nausea or vomiting. OBJECTIVE: Vital Signs Period Temp Pulse Resp BP Sys/Hicks Pulse Ox Last 24 Hr 97.2 F-98.0 F 62-70 18-20 103-138/55-76 97-97 GENERAL:Awake and alert, NAD. HEAD: NCAT EYES: PERRLA, EOMI, sclera anicteric, conjunctiva clear. No lid lag. EARS, NOSE, THROAT: Moist mucous membranes. Hearing aid bilateral ears NECK: supple, no jvd LUNGS: Diminished breath sounds bilaterally. Bibasilar fine rales. No wheezes No accessory muscle use. HEART: RRR, normal S1 and S2 , 2/6 ALEX ABDOMEN: Soft, NTND, NABS, no guarding, no rebound, no masses. No hepatomegaly or splenomegaly. MUSCULOSKELETAL: No CVA tenderness. LOWER EXTREMITIES: 2+ pulses, warm, well-perfused. No calf tenderness. 2+ peripheral edema Bilateral LE NEUROLOGICAL: No focal def. Normal speech. 5/5 strength upper and lower ext. Sensation intact. PSYCHIATRIC: Cooperative. Good eye contact. Appropriate mood and affect. Laboratory Results - last 24 hr 02/03/18 02/04/18 02/04/18 07:48 08:40 08:40 WBC 10.2 H RBC 4.38 Hgb 12.0 Hct 37.0 MCV 84.5 MCH 27.4 MCHC 32.4 RDW 20.0 H Plt Count 354 MPV 9.0 D Absolute Neuts (auto) 8.2 H Neutrophils % 80.4 Lymphocytes % 5.6 L D Monocytes % 7.5 Eosinophils % 5.9 H Basophils % 0.6 Nucleated RBC % 0 Sodium 139 Potassium 4.3 Chloride 105 Carbon Dioxide 24 Anion Gap 10 BUN 77 H Creatinine 3.1 H Creat Clearance w eGFR 19.20 Random Glucose 144 H Calcium 8.8 Total Bilirubin 0.6 AST 35 ALT 28 Alkaline Phosphatase 68 Total Protein 6.3 L Albumin 2.7 L CA 19-9 Antigen 117 H Active Medications Generic Name Dose Route Start Last Admin Trade Name Freq PRN Reason Stop Dose Admin Acetaminophen 650 mg 02/03/18 16:52 02/04/18 08:24 Tylenol - PO 650 mg Q6H PRN Administration PAIN 6-10 Allopurinol 100 mg 02/03/18 10:00 02/04/18 11:01 Zyloprim - PO 100 mg DAILY [facility] Administration Atorvastatin Calcium 10 mg 02/03/18 22:00 02/03/18 21:57 Lipitor - PO 10 mg HS [facility] Administration Bacitracin/Polymyxin B Sulfate 1 applic 02/03/18 10:00 02/04/18 11:01 Polysporin Ointment - TP 1 applic DAILY [facility] Administration Furosemide 80 mg 02/03/18 10:00 02/04/18 11:01 Lasix - PO 80 mg DAILY [facility] Administration Heparin Sodium (Porcine) 5,000 unit 02/03/18 22:00 02/04/18 15:27 Heparin - SQ 5,000 unit TID [facility] Administration Hydralazine HCl 50 mg 02/03/18 10:00 02/04/18 11:01 Apresoline - PO 50 mg BID [facility] Administration Piperacillin Sod/Tazobactam 50 mls @ 100 mls/hr 02/03/18 14:00 02/04/18 15:27 Sod 2.25 gm/ Dextrose IVPB 100 mls/hr Q8H [facility] Administration Protocol Metoprolol Tartrate 25 mg 02/03/18 10:00 02/04/18 11:01 Lopressor - PO 25 mg BID [facility] Administration Pantoprazole Sodium 40 mg 02/03/18 10:00 02/04/18 11:01 Protonix Iv IVPUSH 40 mg DAILY [facility] Administration Tramadol HCl 50 mg 02/03/18 18:43 Ultram - PO Q6H PRN PAIN LEVEL 6-10 ASSESSMENT/PLAN: Problem List - Problems (1) Lung mass Assessment/Plan: Lung mass suspicious for malignancy. * Will need tissue diagnosis to establish treatment options. * Good performance status; * ECOG performance status of 2 * Will contact IR to assess most likely sight of biopsy. (2) Atrial fibrillation Assessment/Plan: Spoke with Dr. Eason on AC * He informed by that based on current consensus that there is higher stroke risk in bridging patient with non valvular afib than just stopping NOAC for few days prior to procedure. * Based off these recommendations will restart Eliquis but hold ASA * Will stop Eliquis 72 hrs prior to biopsy. * Heparin will be stopped. (3) Chest pain Assessment/Plan: Cardiology consult appreciated. * ACS r/o Troponin's (-) x3 * defer further w/u at this time * Imdur added. (4) Liver mass (5) Bone lesion (6) PNA (pneumonia) Assessment/Plan: possible obstructive PNA * ID consult appreciated. * Empiric Zosyn * await c/s. (7) CKD (chronic kidney disease) stage 4, GFR 15-29 ml/min (8) CAD (coronary artery disease) (9) CHF (congestive heart failure) Visit type - Emergency Visit Emergency Visit: Yes ED Registration Date: 02/03/18 Care time: The patient presented to the Emergency Department on the above date and was hospitalized for further evaluation of their emergent condition. - New Patient This patient is new to me today: No - Critical Care Critical Care patient: No
--- NOTE | 2018-02-04 18:26 | PN ---
Teaching Attending Note Name of Resident: Maximus Brown ATTENDING PHYSICIAN STATEMENT I saw and evaluated the patient. I reviewed the resident's note and discussed the case with the resident. I agree with the resident's findings and plan as documented. SUBJECTIVE:Patient seen and examined Discussed with cardiology- with non valvular A.F. consensus opinion is that no bridging is required.Greater risk of vascular events with bridging. Will therefore d/c heparin , resume eliquis and discontinue eliquis 72 hours prior to planned procedure. Updated family. OBJECTIVE: ASSESSMENT AND PLAN:
[2018-02-04] MEDS: ATORVASTATIN CA 10 MG TABLET (FP) PO SCH (22:09)
[2018-02-04] MEDS: APIXABAN 2.5 MG TABLET PO SCH (22:09)
--- NOTE | 2018-02-04 23:34 | PN ---
Progress Note, Physician Chief Complaint: lt upper ext less edematuos rt leg less wd no other complaints nl bm tolerating diet oob - Current Medication List Current Medications: Active Medications Acetaminophen (Tylenol -) 650 mg PO Q6H PRN PRN Reason: PAIN 6-10 Last Admin: 02/04/18 17:51 Dose: 650 mg Allopurinol (Zyloprim -) 100 mg PO DAILY [facility] Last Admin: 02/04/18 11:01 Dose: 100 mg Apixaban (Eliquis -) 2.5 mg PO BID [facility] Last Admin: 02/04/18 22:09 Dose: 2.5 mg Atorvastatin Calcium (Lipitor -) 10 mg PO HS [facility] Last Admin: 02/04/18 22:09 Dose: 10 mg Bacitracin/Polymyxin B Sulfate (Polysporin Ointment -) 1 applic TP DAILY [facility] Last Admin: 02/04/18 11:01 Dose: 1 applic Furosemide (Lasix -) 80 mg PO DAILY [facility] Last Admin: 02/04/18 11:01 Dose: 80 mg Hydralazine HCl (Apresoline -) 50 mg PO BID [facility] Last Admin: 02/04/18 22:09 Dose: 50 mg Piperacillin Sod/Tazobactam (Sod 2.25 gm/ Dextrose) 50 mls @ 100 mls/hr IVPB Q8H [facility]; Protocol Last Admin: 02/04/18 22:09 Dose: 100 mls/hr Metoprolol Tartrate (Lopressor -) 25 mg PO BID [facility] Last Admin: 02/04/18 22:09 Dose: 25 mg Pantoprazole Sodium (Protonix Iv) 40 mg IVPUSH DAILY [facility] Last Admin: 02/04/18 11:01 Dose: 40 mg Tramadol HCl (Ultram -) 50 mg PO Q6H PRN PRN Reason: PAIN LEVEL 6-10 - Objective Vital Signs: Vital Signs Temperature 97 F L 02/04/18 18:07 Pulse Rate 61 02/04/18 18:07 Respiratory Rate 20 02/04/18 18:07 Blood Pressure 147/73 02/04/18 18:07 O2 Sat by Pulse Oximetry (%) 97 02/04/18 10:00 Constitutional: Yes: No Distress Eyes: Yes: WNL HENT: Yes: WNL Neck: No: WNL Respiratory: Yes: SOB on Exertion Gastrointestinal: Yes: WNL ...Rectal Exam: Yes: Deferred Genitourinary: Yes: WNL Breast(s): Yes: WNL Musculoskeletal: Yes: Back Pain Extremities: Yes: Other (leg edema less) Edema: Yes Edema: LLE: 1+, RLE: 1+ Peripheral Pulses WNL: Yes Integumentary: Yes: WNL, Tattoos Neurological: Yes: WNL Psychiatric: Yes: WNL Labs: CBC, BMP 02/04/18 08:40 02/04/18 08:40 INR, PTT INR 1.12 (0.83-1.09) H 02/03/18 01:17 Problem List - Problems (1) Atrial fibrillation Code(s): I48.91 - UNSPECIFIED ATRIAL FIBRILLATION Qualifiers: Atrial fibrillation type: permanent Qualified Code(s): I48.2 - Chronic atrial fibrillation Assessment/Plan awating liver bx off asa off eliquis warm soaks lt upper ex dsd wd care basitrasin chk labs in am
[2018-02-05 00:12] LABS: CA 27.29 149 U/mL (0.0-38.6)
[2018-02-05] MEDS ORDERED: DEXTROSE 5%-WATER - 50 ML IVPB ONE ×3 (05:45→21:02)
[2018-02-05] MEDS ORDERED: PIPERACILLIN/TAZOBACTAM 2.25 GM VIAL IVPB ONE ×3 (05:45→21:02)
[2018-02-05] MEDS: HYDROCORTISONE 2.5% TOPICAL CREAM 30 GM TUBE TP SCH ×3 (06:11→22:40)
[2018-02-05] MEDS: hydrOXYzine HCL 25 MG TABLET (FP) PO PRN ×2 (06:12→22:19)
[2018-02-05] MEDS: PIPERACILLIN/TAZOB 2.25 GM 2.25 GM in DEXTROSE 5%-WATER - 50 ML IVPB SCH ×3 (06:12→22:20)
[2018-02-05 07:33] LABS: BASO % 0.8 % (0-2.0); EOS % 7.5 % (0-4.5); HEMATOCRIT 32.1 % (35.4-49); HEMOGLOBIN 10.5 GM/dL (11.7-16.9); LYMPH % 10.1 % (8-40); MCH 27.7 pg (25.7-33.7); MCHC 32.6 g/dl (32.0-35.9); MEAN PLT VOLUME 8.9 fl (7.5-11.1); MONO % 12.8 % (3.8-10.2); NEUT % 68.8 % (42.8-82.8); PLATELET COUNT 323 K/MM3 (134-434); RBC 3.77 M/mm3 (4.00-5.60); RDW 20.1 % (11.9-15.9); WHITE BLOOD COUNT 9.9 K/mm3 (4.0-10.0)
[2018-02-05 07:36] LABS: ALBUMIN 2.4 g/dl (3.4-5.0); ALK PHOS 56 U/L (45-117); ANION GAP 10 MMOL/L (8-16); BILIRUBIN,TOTAL 0.6 mg/dL (0.2-1); BLOOD UREA NITROGEN 81 mg/dL (7-18); CALCIUM 8.6 mg/dL (8.5-10.1); CHLORIDE 108 mmol/L (98-107); CO2 22 mmol/L (21-32); CREATININE 3.3 mg/dL (0.55-1.3); GLUCOSE,RANDOM 89 mg/dL (74-106); POTASSIUM 4.3 mmol/L (3.5-5.1); SGOT/AST 24 U/L (15-37); SGPT/ALT 23 U/L (13-61); SODIUM 140 mmol/L (136-145); TOT PROT 5.6 g/dl (6.4-8.2)
[2018-02-05] MEDS: ALLOPURINOL 100 MG TABLET (FP) PO SCH (09:32)
[2018-02-05] MEDS: hydrALAZINE HCL 25 MG TABLET (FP) PO SCH ×2 (09:54→22:17)
[2018-02-05] MEDS: PANTOPRAZOLE SODIUM 40 MG VIAL IVPUSH SCH (09:54)
[2018-02-05] MEDS: METOPROLOL TARTRATE 25 MG TABLET (FP) PO SCH ×2 (09:55→22:20)
[2018-02-05] MEDS: FUROSEMIDE 40 MG TABLET (FP) PO SCH (09:55)
[2018-02-05] MEDS: APIXABAN 2.5 MG TABLET PO SCH ×2 (09:58→22:19)
--- NOTE | 2018-02-05 12:34 | PN ---
Progress Note (short form) - Note Progress Note: PULMONARY c/o left sided posterior rib pain. Bone scan negative for blastic lesions but does not rule out lytic lesions. Vital Signs Period Temp Pulse Resp BP Sys/Hicks Pulse Ox Last 24 Hr 97 F-98.2 F 61-66 18-20 103-147/48-73 97-97 Gen: NAD at rest Heart: RRR Lung: decreased breath sounds at the bases Abd: soft, nontender Ext: no edema CBC, BMP 02/05/18 06:00 02/05/18 06:00 Active Medications Acetaminophen (Tylenol -) 650 mg PO Q6H PRN PRN Reason: PAIN 6-10 Last Admin: 02/04/18 17:51 Dose: 650 mg Allopurinol (Zyloprim -) 100 mg PO DAILY [facility] Last Admin: 02/05/18 09:32 Dose: 100 mg Apixaban (Eliquis -) 2.5 mg PO BID [facility] Last Admin: 02/05/18 09:58 Dose: 2.5 mg Atorvastatin Calcium (Lipitor -) 10 mg PO HS [facility] Last Admin: 02/04/18 22:09 Dose: 10 mg Bacitracin/Polymyxin B Sulfate (Polysporin Ointment -) 1 applic TP DAILY [facility] Last Admin: 02/04/18 11:01 Dose: 1 applic Furosemide (Lasix -) 80 mg PO DAILY [facility] Last Admin: 02/05/18 09:55 Dose: 80 mg Hydralazine HCl (Apresoline -) 50 mg PO BID [facility] Last Admin: 02/05/18 09:54 Dose: 50 mg Hydrocortisone (Anusol 2.5% Hc Cream -) 1 applic TP BID [facility] Last Admin: 02/05/18 09:58 Dose: 1 applic Hydroxyzine HCl (Atarax -) 25 mg PO Q8H PRN PRN Reason: ITCHING Last Admin: 02/05/18 06:12 Dose: 25 mg Piperacillin Sod/Tazobactam (Sod 2.25 gm/ Dextrose) 50 mls @ 100 mls/hr IVPB Q8H [facility]; Protocol Last Admin: 02/05/18 06:12 Dose: 100 mls/hr Metoprolol Tartrate (Lopressor -) 25 mg PO BID [facility] Last Admin: 02/05/18 09:55 Dose: 25 mg Pantoprazole Sodium (Protonix Iv) 40 mg IVPUSH DAILY [facility] Last Admin: 02/05/18 09:54 Dose: 40 mg Tramadol HCl (Ultram -) 50 mg PO Q6H PRN PRN Reason: PAIN LEVEL 6-10 Last Admin: 02/05/18 09:55 Dose: 50 mg A/P Lung Mass - r/o Metastatic Disease r/o Pneumonia CAD s/p CABG LV Diastolic Dysfunction Atrial Fibrillation CKD - continue antibiotics - f/u cultures - for CT guided biopsy, will need to hold ASA, eliquis - rate control - O2 as needed Problem List - Problems (1) Lung mass Code(s): R91.8 - OTHER NONSPECIFIC ABNORMAL FINDING OF LUNG FIELD (2) PNA (pneumonia) Code(s): J18.9 - PNEUMONIA, UNSPECIFIED ORGANISM Qualifiers: Pneumonia type: due to unspecified organism Laterality: unspecified laterality Lung location: unspecified part of lung Qualified Code(s): J18.9 - Pneumonia, unspecified organism (3) Bone lesion Code(s): M89.9 - DISORDER OF BONE, UNSPECIFIED (4) CKD (chronic kidney disease) stage 4, GFR 15-29 ml/min Code(s): N18.4 - CHRONIC KIDNEY DISEASE, STAGE 4 (SEVERE) (5) Liver mass Code(s): R16.0 - HEPATOMEGALY, NOT ELSEWHERE CLASSIFIED (6) Atrial fibrillation Code(s): I48.91 - UNSPECIFIED ATRIAL FIBRILLATION Qualifiers: Atrial fibrillation type: permanent Qualified Code(s): I48.2 - Chronic atrial fibrillation (7) CAD (coronary artery disease) Code(s): I25.10 - ATHSCL HEART DISEASE OF [place] CORONARY ARTERY W/O ANG PCTRS Qualifiers: Coronary Disease-Associated Artery/Lesion type: [place] artery [place] vs. transplanted heart: [place] heart Associated angina: angina presence unspecified Qualified Code(s): I25.10 - Atherosclerotic heart disease of [place] coronary artery without angina pectoris (8) CHF (congestive heart failure) Code(s): I50.9 - HEART FAILURE, UNSPECIFIED Qualifiers: Heart failure type: unspecified (9) Hx of CABG Code(s): Z95.1 - PRESENCE OF AORTOCORONARY BYPASS GRAFT
--- NOTE | 2018-02-05 12:44 | PN ---
Physical Exam: SUBJECTIVE: Patient seen and examined at bedside. No overnight events. Continues to have rib and sternal pain with cough and deep inspiration. Continues to have some itching. Denies Olivier, SOB,abdominal pain, nausea or vomiting . OBJECTIVE: Vital Signs Period Temp Pulse Resp BP Sys/Hicks Pulse Ox Last 24 Hr 97 F-98.2 F 61-66 18-20 103-147/48-73 97-97 GENERAL:Awake and alert, NAD. HEAD: NCAT EYES: PERRLA, EOMI, sclera anicteric, conjunctiva clear. No lid lag. EARS, NOSE, THROAT: Moist mucous membranes. Hearing aid bilateral ears NECK: supple, no jvd LUNGS: Diminished breath sounds bilaterally. Bibasilar fine rales. No wheezes No accessory muscle use. HEART: RRR, normal S1 and S2 , 2/6 ALEX ABDOMEN: Soft, NTND, NABS, no guarding, no rebound, no masses. No hepatomegaly or splenomegaly. MUSCULOSKELETAL: No CVA tenderness. LOWER EXTREMITIES: 2+ pulses, warm, well-perfused. No calf tenderness. 2+ peripheral edema Bilateral LE NEUROLOGICAL: No focal def. Normal speech. 5/5 strength upper and lower ext. Sensation intact. PSYCHIATRIC: Cooperative. Good eye contact. Appropriate mood and affect. Laboratory Results - last 24 hr 02/03/18 02/04/18 02/04/18 07:48 06:00 18:55 WBC RBC Hgb Hct MCV MCH MCHC RDW Plt Count MPV Absolute Neuts (auto) Neutrophils % Lymphocytes % Monocytes % Eosinophils % Basophils % Nucleated RBC % PTT (Actin FS) 27.0 Sodium Potassium Chloride Carbon Dioxide Anion Gap BUN Creatinine Creat Clearance w eGFR Random Glucose Calcium Total Bilirubin AST ALT Alkaline Phosphatase Total Protein Albumin CA 27-29 149 H Prostate Specific Ag < 0.10 02/05/18 02/05/18 06:00 06:00 WBC 9.9 RBC 3.77 L Hgb 10.5 L Hct 32.1 L MCV 85.0 MCH 27.7 MCHC 32.6 RDW 20.1 H Plt Count 323 MPV 8.9 Absolute Neuts (auto) 6.8 Neutrophils % 68.8 Lymphocytes % 10.1 D Monocytes % 12.8 H Eosinophils % 7.5 H Basophils % 0.8 Nucleated RBC % 0 PTT (Actin FS) Sodium 140 Potassium 4.3 Chloride 108 H Carbon Dioxide 22 Anion Gap 10 BUN 81 H Creatinine 3.3 H Creat Clearance w eGFR 17.86 Random Glucose 89 Calcium 8.6 Total Bilirubin 0.6 AST 24 ALT 23 Alkaline Phosphatase 56 Total Protein 5.6 L Albumin 2.4 L CA 27-29 Prostate Specific Ag Active Medications Generic Name Dose Route Start Last Admin Trade Name Freq PRN Reason Stop Dose Admin Acetaminophen 650 mg 02/03/18 16:52 02/04/18 17:51 Tylenol - PO 650 mg Q6H PRN Administration PAIN 6-10 Allopurinol 100 mg 02/03/18 10:00 02/05/18 09:32 Zyloprim - PO 100 mg DAILY [facility] Administration Apixaban 2.5 mg 02/04/18 22:00 02/05/18 09:58 Eliquis - PO 2.5 mg BID [facility] Administration Atorvastatin Calcium 10 mg 02/03/18 22:00 02/04/18 22:09 Lipitor - PO 10 mg HS [facility] Administration Bacitracin/Polymyxin B Sulfate 1 applic 02/03/18 10:00 02/04/18 11:01 Polysporin Ointment - TP 1 applic DAILY [facility] Administration Furosemide 80 mg 02/03/18 10:00 02/05/18 09:55 Lasix - PO 80 mg DAILY [facility] Administration Hydralazine HCl 50 mg 02/03/18 10:00 02/05/18 09:54 Apresoline - PO 50 mg BID [facility] Administration Hydrocortisone 1 applic 02/05/18 02:15 02/05/18 09:58 Anusol 2.5% Hc Cream - TP 1 applic BID [facility] Administration Hydroxyzine HCl 25 mg 02/05/18 02:13 02/05/18 06:12 Atarax - PO 25 mg Q8H PRN Administration ITCHING Piperacillin Sod/Tazobactam 50 mls @ 100 mls/hr 02/03/18 14:00 02/05/18 06:12 Sod 2.25 gm/ Dextrose IVPB 100 mls/hr Q8H [facility] Administration Protocol Metoprolol Tartrate 25 mg 02/03/18 10:00 02/05/18 09:55 Lopressor - PO 25 mg BID [facility] Administration Pantoprazole Sodium 40 mg 02/03/18 10:00 02/05/18 09:54 Protonix Iv IVPUSH 40 mg DAILY [facility] Administration Tramadol HCl 50 mg 02/03/18 18:43 02/05/18 09:55 Ultram - PO 50 mg Q6H PRN Administration PAIN LEVEL 6-10 ASSESSMENT/PLAN: 87 yo M with PMHx of CHF(s/p AICD), CAD(s/p CABG 2009), CKD stage 4, prostate ca (s/p radiation 1994), AAA, and Afib(on Eliquis) presents with 2 day history of chest pain. Found to have lung mass with liver lesions. Awaiting biopsy. Problem List - Problems (1) Lung mass Assessment/Plan: Lung mass suspicious for malignancy. * Will need tissue diagnosis to establish treatment options. * Good performance status; * ECOG performance status of 2 * Plan for biopsy next week ; most likely site Liver (2) Atrial fibrillation Assessment/Plan: Spoke with Dr. Eason on AC * He informed by that based on current consensus that there is higher stroke risk in bridging patient with non valvular afib than just stopping NOAC for few days prior to procedure. * Based off these recommendations will restart Eliquis but hold ASA * Will stop Eliquis 72 hrs prior to biopsy. * Heparin will be stopped. (3) Liver mass (4) Bone lesion (5) PNA (pneumonia) Assessment/Plan: possible obstructive PNA * ID consult appreciated. * Empiric Zosyn * await c/s. (6) CKD (chronic kidney disease) stage 4, GFR 15-29 ml/min Assessment/Plan: stable at this time. * Will continue to monitor renal function * renal dose meds * avoid nephrotoxic meds (7) CAD (coronary artery disease) Assessment/Plan: ACS less likely * ASA held for biopsy * continue BB * Imdur added. (8) CHF (congestive heart failure) Assessment/Plan: Continue home meds. * Furosemide (Lasix -) 80 mg PO DAILY * Metoprolol Tartrate (Lopressor -) 25 mg PO BID * tele monitoring * monitor I/O's * salt restricted diet. (9) Chest pain Assessment/Plan: Cardiology consult appreciated. * ACS r/o Troponin's (-) x3 * defer further w/u at this time * Imdur added. Visit type - Emergency Visit Emergency Visit: Yes ED Registration Date: 02/03/18 Care time: The patient presented to the Emergency Department on the above date and was hospitalized for further evaluation of their emergent condition. - New Patient This patient is new to me today: No - Critical Care Critical Care patient: No
[2018-02-05] MEDS ORDERED: PT OWN MED DRAWER 7, Y5N ONE ×2 (12:59→21:03)
[2018-02-05] MEDS: traMADol HCL 50 MG TABLET PO PRN ×2 (15:32→21:06)
[2018-02-05 17:09] VITALS: BMI 27.5
--- NOTE | 2018-02-05 17:19 | PN ---
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 He has worsening chronic leg edema and pruritis. CT done no dissection, PE. Mild abdominal aortic aneurysm 3.8 cm, RLL mass and possible liver mets. 02/05/18 He is complaining of left shoulder pain. Worse with movement. - Current Medication List Current Medications: Active Medications Acetaminophen (Tylenol -) 650 mg PO Q6H PRN PRN Reason: PAIN 6-10 Last Admin: 02/04/18 17:51 Dose: 650 mg Allopurinol (Zyloprim -) 100 mg PO DAILY [facility] Last Admin: 02/05/18 09:32 Dose: 100 mg Apixaban (Eliquis -) 2.5 mg PO BID [facility] Last Admin: 02/05/18 09:58 Dose: 2.5 mg Atorvastatin Calcium (Lipitor -) 10 mg PO HS [facility] Last Admin: 02/04/18 22:09 Dose: 10 mg Bacitracin/Polymyxin B Sulfate (Polysporin Ointment -) 1 applic TP DAILY [facility] Last Admin: 02/04/18 11:01 Dose: 1 applic Furosemide (Lasix -) 80 mg PO DAILY [facility] Last Admin: 02/05/18 09:55 Dose: 80 mg Hydralazine HCl (Apresoline -) 50 mg PO BID [facility] Last Admin: 02/05/18 09:54 Dose: 50 mg Hydrocortisone (Anusol 2.5% Hc Cream -) 1 applic TP BID [facility] Last Admin: 02/05/18 09:58 Dose: 1 applic Hydroxyzine HCl (Atarax -) 25 mg PO Q8H PRN PRN Reason: ITCHING Last Admin: 02/05/18 06:12 Dose: 25 mg Piperacillin Sod/Tazobactam (Sod 2.25 gm/ Dextrose) 50 mls @ 100 mls/hr IVPB Q8H [facility]; Protocol Last Admin: 02/05/18 15:32 Dose: 100 mls/hr Metoprolol Tartrate (Lopressor -) 25 mg PO BID [facility] Last Admin: 02/05/18 09:55 Dose: 25 mg Pantoprazole Sodium (Protonix Iv) 40 mg IVPUSH DAILY [facility] Last Admin: 02/05/18 09:54 Dose: 40 mg Tramadol HCl (Ultram -) 50 mg PO Q4H PRN PRN Reason: PAIN LEVEL 6-10 Last Admin: 02/05/18 15:32 Dose: 50 mg - Objective Vital Signs: Vital Signs Temperature 98.2 F 02/05/18 09:49 Pulse Rate 66 02/05/18 09:49 Respiratory Rate 18 02/05/18 09:49 Blood Pressure 129/51 L 02/05/18 09:49 O2 Sat by Pulse Oximetry (%) 97 02/05/18 10:00 Constitutional: Yes: No Distress HENT: Yes: WNL Neck: Yes: WNL Cardiovascular: Yes: Regular Rate and Rhythm (SL S1S2) Respiratory: Yes: CTA Bilaterally Extremities: Yes: WNL Edema: No Neurological: Yes: Alert, Oriented (Sleepy) Labs: CBC, BMP 02/05/18 06:00 02/05/18 06:00 INR, PTT INR 1.12 (0.83-1.09) H 02/03/18 01:17 Assessment/Plan 87M with h/o AAA, CAD, CKD followed by Dr Isabel Daily, CABG, chronic A-fib on Eliquis, chronic diastolic CHF EF 70% 2017 at [facility], memory loss, 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 He has worsening chronic leg edema and pruritis. CT done no dissection, PE. Mild abdominal aortic aneurysm 3.8 cm, RLL mass and possible liver mets. Plan Chest pain Non cardiac left shoulder pain. Worse when he moves it. Cardiac enzymes are negative Left should pain is improving on Tramadol AFIB AC with Eliquis Rate control with BB. PPM Functioning well, recently checked. CAD Continue Statin Lung Mass Can hold AC and ASA if biopsy is planned Usually we hold Eliquis for 48 to 72 hours Hold Aspirin for 5 - 7 days No need for bridging in this case Will follow with you.
[2018-02-05] MEDS: BACITRACIN/POLYMYXIN B SULFATE 15 GM TUBE TP SCH (17:22)
--- NOTE | 2018-02-05 18:49 | CONSULT ---
Consult Consult Specialty:: Dermatology - History Source History Provided By: Family Member, Caregiver - Past Medical History Cardio/Vascular: Yes: AFIB, CAD, CHF, HTN, Other (h/o ml pacmaker) Hepatobiliary: Yes: Cholelithiasis Renal/: Yes: Renal Inusuff, Hematuria Musculoskeletal: Yes: Other (gout) Dermatology: Yes: Eczema, Other (pruritis/ stasis dermatitis) - Past Surgical History Past Surgical History: Yes: CABG, Cataract Removal, Permanent Pacemaker - Alcohol/Substance Use Hx Alcohol Use: No History of Substance Use: reports: None - Smoking History Smoking history: Former smoker Have you smoked in the past 12 months: No If you are a former smoker, when did you quit?: 40 years ago - Social History ADL: Independent History of Recent Travel: No Home Medications - Allergies Allergies/Adverse Reactions: Allergies Allergy/AdvReac Type Severity Reaction Status Date / Time No Known Allergies Allergy Verified 12/07/17 11:49 - Home Medications Home Medications: Ambulatory Orders Allopurinol [Zyloprim -] 100 mg PO DAILY 08/23/16 Aspirin [Ecotrin] 81 mg PO DAILY 08/23/16 Atorvastatin Ca [Lipitor] 10 mg PO ASDIR 08/23/16 Folic Acid 1 mg PO DAILY 08/23/16 Furosemide [Lasix] 40 mg PO TID 08/23/16 Hydralazine HCl 50 mg PO BID 08/23/16 Metoprolol Tartrate [Lopressor -] 25 mg PO BID 08/23/16 Tamsulosin HCl [Flomax] 0.4 mg PO DAILY 08/23/16 Apixaban [Eliquis -] 2.5 mg PO BID 02/02/18 Hydroxyzine HCl 25 mg PO HS 02/02/18 Physical Exam Vital Signs: Vital Signs Temperature 97.5 F L 02/05/18 18:11 Pulse Rate 60 02/05/18 18:11 Respiratory Rate 20 02/05/18 18:11 Blood Pressure 125/63 02/05/18 18:11 O2 Sat by Pulse Oximetry (%) 97 02/05/18 10:00 Labs: CBC, BMP 02/05/18 06:00 02/05/18 06:00 Assessment/Plan 87 yr old man previously seen in my office for itching. biopsy was taken which was not helpful in determining the cause of pruritis other than eczema and xerosis. On exam the patient has erythema and slight edema of the lower extremities as well as excoriations on the back of his ankles . Please apply bactroban to scratches on lower extremities BID. Examination of the upper body revealed no eruption. The groin folds are slightly erythematous and the patient complains of pruritis in the groin and testicles. Dignosis : candidiasis in groin. Please apply medicated powder BID to groin area. For generalized pruritis especially on ant javier and back please apply triamcinolone to affected areas PRN as well as continuing Atarax 25 mg prn pruritis. the patient complins of pruritis around the anus. continue hydrocortisone in area and consult with GI after discharge. Consult with vascular after discharge for Stasis in both lower extremities. Discussed withy patients daughters.
[2018-02-05] MEDS: TRIAMCINOLONE ACET 0.1% OINT 15 GM TUBE TP SCH (21:52)
[2018-02-05] MEDS: NYSTATIN POWDER 100,000 UNITS/GM - 15 GM TOPICAL POWDER TP SCH (21:53)
[2018-02-05] MEDS: MUPIROCIN 2% TOPICAL OINTMENT 22 GM TUBE TP SCH (21:54)
[2018-02-05] MEDS: ATORVASTATIN CA 10 MG TABLET (FP) PO SCH (22:19)
[2018-02-06] MEDS ORDERED: PIPERACILLIN/TAZOBACTAM 2.25 GM VIAL IVPB ONE ×3 (05:22→21:08)
[2018-02-06] MEDS ORDERED: DEXTROSE 5%-WATER - 50 ML IVPB ONE ×3 (05:22→21:08)
[2018-02-06] MEDS: PIPERACILLIN/TAZOB 2.25 GM 2.25 GM in DEXTROSE 5%-WATER - 50 ML IVPB SCH ×3 (06:40→22:06)
[2018-02-06] MEDS: traMADol HCL 50 MG TABLET PO PRN ×2 (09:05→13:26)
[2018-02-06] MEDS: PANTOPRAZOLE SODIUM 40 MG VIAL IVPUSH SCH (10:15)
[2018-02-06] MEDS: ALLOPURINOL 100 MG TABLET (FP) PO SCH (10:15)
[2018-02-06] MEDS: METOPROLOL TARTRATE 25 MG TABLET (FP) PO SCH ×2 (10:15→22:07)
[2018-02-06 10:33] LABS: HEMATOCRIT 35.3 % (35.4-49); HEMOGLOBIN 11.2 GM/dL (11.7-16.9); MCH 27.2 pg (25.7-33.7); MCHC 31.6 g/dl (32.0-35.9); MEAN PLT VOLUME 8.6 fl (7.5-11.1); PLATELET COUNT 353 K/MM3 (134-434); RBC 4.11 M/mm3 (4.00-5.60); WHITE BLOOD COUNT 10.3 K/mm3 (4.0-10.0)
[2018-02-06 11:09] LABS: ALBUMIN 2.7 g/dl (3.4-5.0); ALK PHOS 65 U/L (45-117); ANION GAP 12 MMOL/L (8-16); BILIRUBIN,TOTAL 0.5 mg/dL (0.2-1); BLOOD UREA NITROGEN 82 mg/dL (7-18); CALCIUM 8.8 mg/dL (8.5-10.1); CHLORIDE 105 mmol/L (98-107); CO2 22 mmol/L (21-32); CREATININE 3.9 mg/dL (0.55-1.3); GLUCOSE,RANDOM 153 mg/dL (74-106); POTASSIUM 4.2 mmol/L (3.5-5.1); SGOT/AST 31 U/L (15-37); SGPT/ALT 31 U/L (13-61); SODIUM 139 mmol/L (136-145); TOT PROT 6.4 g/dl (6.4-8.2)
--- NOTE | 2018-02-06 12:13 | PN ---
Progress Note, Physician History of Present Illness: pulmonary alert,oob-chair,c/o left sided chest discomfort - Current Medication List Current Medications: Active Medications Acetaminophen (Tylenol -) 650 mg PO Q6H PRN PRN Reason: PAIN 6-10 Last Admin: 02/04/18 17:51 Dose: 650 mg Allopurinol (Zyloprim -) 100 mg PO DAILY [facility] Last Admin: 02/06/18 10:15 Dose: 100 mg Apixaban (Eliquis -) 2.5 mg PO BID [facility] Last Admin: 02/05/18 22:19 Dose: 2.5 mg Atorvastatin Calcium (Lipitor -) 10 mg PO HS [facility] Last Admin: 02/05/18 22:19 Dose: 10 mg Furosemide (Lasix -) 80 mg PO DAILY [facility] Last Admin: 02/05/18 09:55 Dose: 80 mg Hydralazine HCl (Apresoline -) 50 mg PO BID [facility] Last Admin: 02/05/18 22:17 Dose: Not Given Hydrocortisone (Anusol 2.5% Hc Cream -) 1 applic TP BID [facility] Last Admin: 02/05/18 22:40 Dose: Not Given Hydroxyzine HCl (Atarax -) 25 mg PO Q8H PRN PRN Reason: ITCHING Last Admin: 02/05/18 22:19 Dose: 25 mg Piperacillin Sod/Tazobactam (Sod 2.25 gm/ Dextrose) 50 mls @ 100 mls/hr IVPB Q8H [facility]; Protocol Last Admin: 02/06/18 06:40 Dose: 100 mls/hr Metoprolol Tartrate (Lopressor -) 25 mg PO BID [facility] Last Admin: 02/06/18 10:15 Dose: 25 mg Mupirocin (Bactroban 2% Ointment -) 1 applic TP BID [facility] Last Admin: 02/05/18 21:54 Dose: 1 applic Nystatin (Nystop Powder -) 1 applic TP DAILY [facility] Last Admin: 02/05/18 21:53 Dose: 1 applic Pantoprazole Sodium (Protonix Iv) 40 mg IVPUSH DAILY [facility] Last Admin: 02/06/18 10:15 Dose: 40 mg Tramadol HCl (Ultram -) 50 mg PO Q4H PRN PRN Reason: PAIN LEVEL 6-10 Last Admin: 02/06/18 09:05 Dose: 50 mg Triamcinolone Acetonide (Aristocort 0.1% Ointment -) 1 applic TP BID [facility] Last Admin: 02/05/18 21:52 Dose: 1 applic - Objective Vital Signs: Vital Signs Temperature 97.4 F L 02/06/18 10:00 Pulse Rate 92 H 02/06/18 10:00 Respiratory Rate 18 02/06/18 10:00 Blood Pressure 91/42 L 02/06/18 10:00 O2 Sat by Pulse Oximetry (%) 94 L 02/05/18 21:00 Constitutional: Yes: Well Nourished, Calm Eyes: Yes: WNL HENT: Yes: WNL Neck: Yes: WNL Cardiovascular: Yes: Pulse Irregular, S1, S2 Respiratory: Yes: Rales (crackles on left) Gastrointestinal: Yes: Normal Bowel Sounds, Soft Extremities: Yes: WNL Edema: No Labs: CBC, BMP 02/06/18 10:15 02/06/18 10:15 INR, PTT INR 1.12 (0.83-1.09) H 02/03/18 01:17 Assessment/Plan Problem List - Problems (1) Lung mass Code(s): R91.8 - OTHER NONSPECIFIC ABNORMAL FINDING OF LUNG FIELD (2) PNA (pneumonia) Code(s): J18.9 - PNEUMONIA, UNSPECIFIED ORGANISM Qualifiers: Pneumonia type: due to unspecified organism Laterality: unspecified laterality Lung location: unspecified part of lung Qualified Code(s): J18.9 - Pneumonia, unspecified organism (3) Bone lesion Code(s): M89.9 - DISORDER OF BONE, UNSPECIFIED (4) CKD (chronic kidney disease) stage 4, GFR 15-29 ml/min Code(s): N18.4 - CHRONIC KIDNEY DISEASE, STAGE 4 (SEVERE) (5) Liver mass Code(s): R16.0 - HEPATOMEGALY, NOT ELSEWHERE CLASSIFIED (6) Atrial fibrillation Code(s): I48.91 - UNSPECIFIED ATRIAL FIBRILLATION Qualifiers: Atrial fibrillation type: permanent Qualified Code(s): I48.2 - Chronic atrial fibrillation (7) CAD (coronary artery disease) Code(s): I25.10 - ATHSCL HEART DISEASE OF [place] CORONARY ARTERY W/O ANG PCTRS (8) CHF (congestive heart failure) Code(s): I50.9 - HEART FAILURE, UNSPECIFIED (9) Hx of CABG Code(s): Z95.1 - PRESENCE OF AORTOCORONARY BYPASS GRAFT Assessment/Plan Lung Mass - r/o Metastatic Disease r/o Pneumonia CAD s/p CABG LV Diastolic Dysfunction Atrial Fibrillation CKD - antibiotics as per ID - hold ASA, eliquis as pt will need CT guided needle biopsy, can bridge with heparin gtt - rate control - O2 as needed DR DE LEON
[2018-02-06] MEDS: HYDROCORTISONE 2.5% TOPICAL CREAM 30 GM TUBE TP SCH ×2 (13:29→22:19)
[2018-02-06] MEDS: TRIAMCINOLONE ACET 0.1% OINT 15 GM TUBE TP SCH ×2 (13:30→22:19)
[2018-02-06] MEDS: MUPIROCIN 2% TOPICAL OINTMENT 22 GM TUBE TP SCH ×2 (13:30→22:07)
[2018-02-06] MEDS: NYSTATIN POWDER 100,000 UNITS/GM - 15 GM TOPICAL POWDER TP SCH (13:31)
[2018-02-06] MEDS: FUROSEMIDE 40 MG TABLET (FP) PO SCH (14:10)
--- NOTE | 2018-02-06 14:47 | PN ---
Progress Note, Physician Chief Complaint: denies pain bm ok tolerating diet oob - Current Medication List Current Medications: Active Medications Acetaminophen (Tylenol -) 650 mg PO Q6H PRN PRN Reason: PAIN 6-10 Last Admin: 02/04/18 17:51 Dose: 650 mg Allopurinol (Zyloprim -) 100 mg PO DAILY [facility] Last Admin: 02/06/18 10:15 Dose: 100 mg Apixaban (Eliquis -) 2.5 mg PO BID [facility] Last Admin: 02/05/18 22:19 Dose: 2.5 mg Atorvastatin Calcium (Lipitor -) 10 mg PO HS [facility] Last Admin: 02/05/18 22:19 Dose: 10 mg Furosemide (Lasix -) 80 mg PO DAILY [facility] Last Admin: 02/05/18 09:55 Dose: 80 mg Hydralazine HCl (Apresoline -) 50 mg PO BID [facility] Last Admin: 02/05/18 22:17 Dose: Not Given Hydrocortisone (Anusol 2.5% Hc Cream -) 1 applic TP BID [facility] Last Admin: 02/06/18 13:29 Dose: 1 applic Hydroxyzine HCl (Atarax -) 25 mg PO Q8H PRN PRN Reason: ITCHING Last Admin: 02/05/18 22:19 Dose: 25 mg Piperacillin Sod/Tazobactam (Sod 2.25 gm/ Dextrose) 50 mls @ 100 mls/hr IVPB Q8H [facility]; Protocol Last Admin: 02/06/18 13:28 Dose: 100 mls/hr Metoprolol Tartrate (Lopressor -) 25 mg PO BID [facility] Last Admin: 02/06/18 10:15 Dose: 25 mg Mupirocin (Bactroban 2% Ointment -) 1 applic TP BID [facility] Last Admin: 02/06/18 13:30 Dose: 1 applic Nystatin (Nystop Powder -) 1 applic TP DAILY [facility] Last Admin: 02/06/18 13:31 Dose: 1 applic Pantoprazole Sodium (Protonix Iv) 40 mg IVPUSH DAILY [facility] Last Admin: 02/06/18 10:15 Dose: 40 mg Tramadol HCl (Ultram -) 50 mg PO Q4H PRN PRN Reason: PAIN LEVEL 6-10 Last Admin: 02/06/18 13:26 Dose: 50 mg Triamcinolone Acetonide (Aristocort 0.1% Ointment -) 1 applic TP BID [facility] Last Admin: 02/06/18 13:30 Dose: 1 applic - Objective Vital Signs: Vital Signs Temperature 98.3 F 02/06/18 14:27 Pulse Rate 60 02/06/18 14:27 Respiratory Rate 18 02/06/18 14:27 Blood Pressure 111/61 02/06/18 14:27 O2 Sat by Pulse Oximetry (%) 94 L 02/05/18 21:00 Constitutional: Yes: No Distress Eyes: Yes: WNL HENT: Yes: WNL Neck: Yes: WNL Cardiovascular: Yes: WNL Respiratory: Yes: WNL Gastrointestinal: Yes: Hypoactive Bowel Sounds ...Rectal Exam: Yes: Deferred Genitourinary: Yes: WNL Breast(s): Yes: WNL Musculoskeletal: Yes: WNL Extremities: Yes: WNL Edema: Yes Integumentary: Yes: WNL Wound/Incision: Yes: Clean/Dry Neurological: Yes: WNL ...Motor Strength: WNL Psychiatric: Yes: WNL Labs: CBC, BMP 02/06/18 10:15 02/06/18 10:15 INR, PTT INR 1.12 (0.83-1.09) H 02/03/18 01:17 Problem List - Problems (1) Atrial fibrillation Code(s): I48.91 - UNSPECIFIED ATRIAL FIBRILLATION Qualifiers: Atrial fibrillation type: permanent Qualified Code(s): I48.2 - Chronic atrial fibrillation Assessment/Plan bx friday npo after mid friday nephro appreciated chk renal sono
--- NOTE | 2018-02-06 14:53 | CONSULT ---
Consult Consult Specialty:: Nephrology Reason for Consultation:: CKD with CARROL - History of Present Illness Chief Complaint: chest pain History of Present Illness: Pt is an 87 year old male with pmhx of CHF, AICD, CAD, CKD, AAA, prostate cancer , CABG and a-fib who presents to the ER with chest pain. He has history of CKD and follows with Dr Daily in [facility]. He did get an ct with contrast in the ER. I was called to evaluate him for CARROL. He is on lasix 40 mg po q 8 hrs at home. He feels that his breathing is comfortable. He denies chest pain. He denies dysuria. He does have history of prostate cancer. He denies nsaid use. Family are at bedside who assisted with history. He denies dysuria or hematuria. 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) Hepatobiliary: Yes: Cholelithiasis Renal/: Yes: Renal Inusuff, Hematuria Musculoskeletal: Yes: Other (gout) Dermatology: Yes: Eczema, Other (pruritis/ stasis dermatitis) - Past Surgical History Past Surgical History: Yes: CABG, Cataract Removal, Permanent Pacemaker - Alcohol/Substance Use Hx Alcohol Use: No History of Substance Use: reports: None - Smoking History Smoking history: Former smoker Have you smoked in the past 12 months: No If you are a former smoker, when did you quit?: 40 years ago - Social History ADL: Independent History of Recent Travel: No Home Medications - Allergies Allergies/Adverse Reactions: Allergies Allergy/AdvReac Type Severity Reaction Status Date / Time No Known Allergies Allergy Verified 12/07/17 11:49 - Home Medications Home Medications: Ambulatory Orders Allopurinol [Zyloprim -] 100 mg PO DAILY 08/23/16 Aspirin [Ecotrin] 81 mg PO DAILY 08/23/16 Atorvastatin Ca [Lipitor] 10 mg PO ASDIR 08/23/16 Folic Acid 1 mg PO DAILY 08/23/16 Furosemide [Lasix] 40 mg PO TID 08/23/16 Hydralazine HCl 50 mg PO BID 08/23/16 Metoprolol Tartrate [Lopressor -] 25 mg PO BID 08/23/16 Tamsulosin HCl [Flomax] 0.4 mg PO DAILY 08/23/16 Apixaban [Eliquis -] 2.5 mg PO BID 02/02/18 Hydroxyzine HCl 25 mg PO HS 02/02/18 Family Disease History - Family Disease History Family History: Denies Review of Systems - Review of Systems Constitutional: reports: Malaise Eyes: reports: No Symptoms HENT: reports: No Symptoms Neck: reports: No Symptoms Cardiovascular: reports: Chest Pain, Edema Respiratory: reports: Cough, SOB, SOB on Exertion Genitourinary: reports: No Symptoms Musculoskeletal: reports: No Symptoms Integumentary: reports: No Symptoms Neurological: reports: No Symptoms Endocrine: reports: No Symptoms Hematology/Lymphatic: reports: No Symptoms Psychiatric: reports: No Symptoms Physical Exam Vital Signs: Vital Signs Temperature 98.3 F 02/06/18 14:27 Pulse Rate 60 02/06/18 14:27 Respiratory Rate 18 02/06/18 14:27 Blood Pressure 111/61 02/06/18 14:27 O2 Sat by Pulse Oximetry (%) 94 L 02/05/18 21:00 Constitutional: Yes: Calm Eyes: Yes: Conjunctiva Clear HENT: Yes: Atraumatic Neck: Yes: Supple Cardiovascular: Yes: S1, S2 Respiratory: Yes: Dullness, Rhonchi, SOB on Exertion Gastrointestinal: Yes: Soft Renal/: Yes: WNL Musculoskeletal: Yes: WNL Edema: Yes Edema: LLE: 1+, RLE: 1+ Neurological: Yes: Oriented Psychiatric: Yes: Oriented Labs: CBC, BMP 02/06/18 10:15 02/06/18 10:15 Laboratory Tests 02/03/18 02/03/18 02/03/18 00:37 00:52 07:48 WBC Hgb Plt Count Creatinine 2.6 H 2.6 H Urine Protein Negative Urine Blood Negative 02/04/18 02/05/18 02/06/18 08:40 06:00 10:15 WBC 10.3 H Hgb 11.2 L Plt Count 353 Creatinine 3.1 H 3.3 H Urine Protein Urine Blood 02/06/18 10:15 WBC Hgb Plt Count Creatinine 3.9 H Urine Protein Urine Blood Imaging - Results Cat Scan: Report Reviewed Problem List - Problems (1) Bone lesion Code(s): M89.9 - DISORDER OF BONE, UNSPECIFIED (2) CHF exacerbation Code(s): I50.9 - HEART FAILURE, UNSPECIFIED Qualifiers: Heart failure type: unspecified Qualified Code(s): I50.9 - Heart failure, unspecified (3) CKD (chronic kidney disease) stage 4, GFR 15-29 ml/min Code(s): N18.4 - CHRONIC KIDNEY DISEASE, STAGE 4 (SEVERE) (4) Chest pain Code(s): R07.9 - CHEST PAIN, UNSPECIFIED Qualifiers: Chest pain type: chest pain on breathing Qualified Code(s): R07.1 - Chest pain on breathing; R07.81 - Pleurodynia (5) Liver mass Code(s): R16.0 - HEPATOMEGALY, NOT ELSEWHERE CLASSIFIED (6) Lung mass Code(s): R91.8 - OTHER NONSPECIFIC ABNORMAL FINDING OF LUNG FIELD (7) PNA (pneumonia) Code(s): J18.9 - PNEUMONIA, UNSPECIFIED ORGANISM Qualifiers: Pneumonia type: due to unspecified organism Laterality: unspecified laterality Lung location: unspecified part of lung Qualified Code(s): J18.9 - Pneumonia, unspecified organism Assessment/Plan Current Medications Generic Name Dose Route Start Last Admin Trade Name Freq PRN Reason Stop Dose Admin Acetaminophen 650 mg 02/03/18 16:52 02/04/18 17:51 Tylenol - PO 650 mg Q6H PRN Administration PAIN 6-10 Allopurinol 100 mg 02/03/18 10:00 02/06/18 10:15 Zyloprim - PO 100 mg DAILY [facility] Administration Apixaban 2.5 mg 02/04/18 22:00 02/05/18 22:19 Eliquis - PO 2.5 mg BID [facility] Administration Atorvastatin Calcium 10 mg 02/03/18 22:00 02/05/18 22:19 Lipitor - PO 10 mg HS [facility] Administration Furosemide 80 mg 02/03/18 10:00 02/05/18 09:55 Lasix - PO 80 mg DAILY [facility] Administration Hydralazine HCl 50 mg 02/03/18 10:00 02/05/18 22:17 Apresoline - PO Not Given BID [facility] Hydrocortisone 1 applic 02/05/18 02:15 02/06/18 13:29 Anusol 2.5% Hc Cream - TP 1 applic BID [facility] Administration Hydroxyzine HCl 25 mg 02/05/18 02:13 02/05/18 22:19 Atarax - PO 25 mg Q8H PRN Administration ITCHING Piperacillin Sod/Tazobactam 50 mls @ 100 mls/hr 02/03/18 14:00 02/06/18 13:28 Sod 2.25 gm/ Dextrose IVPB 100 mls/hr Q8H [facility] Administration Protocol Metoprolol Tartrate 25 mg 02/03/18 10:00 02/06/18 10:15 Lopressor - PO 25 mg BID [facility] Administration Mupirocin 1 applic 02/05/18 22:00 02/06/18 13:30 Bactroban 2% Ointment - TP 1 applic BID [facility] Administration Nystatin 1 applic 02/05/18 19:00 02/06/18 13:31 Nystop Powder - TP 1 applic DAILY [facility] Administration Pantoprazole Sodium 40 mg 02/03/18 10:00 02/06/18 10:15 Protonix Iv IVPUSH 40 mg DAILY [facility] Administration Tramadol HCl 50 mg 02/05/18 15:09 02/06/18 13:26 Ultram - PO 50 mg Q4H PRN Administration PAIN LEVEL 6-10 Triamcinolone Acetonide 1 applic 02/05/18 22:00 02/06/18 13:30 Aristocort 0.1% Ointment - TP 1 applic BID [facility] Administration Impression 1. CKD 2. CARROL 3. CAD 4. s/p aicd 5. liver lesions 6. pancreatic lesions 7. lung mass 8. pna 9. a-fib 10. HTN 11. AAA 12. HLD Plan - will check renal ultrasound to r/o obstruction - chekc ua and lytes - repeat labs in am - agree with lower lasix dose - may need to hold - pt did get contrast in ER, may have colt, will follow body worker - discussed with medical team - discussed with family Dr Perez
[2018-02-06] MEDS: APIXABAN 2.5 MG TABLET PO SCH (15:34)
[2018-02-06] MEDS: hydrALAZINE HCL 25 MG TABLET (FP) PO SCH ×2 (15:34→22:08)
--- NOTE | 2018-02-06 16:01 | PN ---
Progress Note (short form) - Note Progress Note: Patient seen nd examined Complains of constipation . No chest pains or SOB Last Vital Signs Temp Pulse Resp BP Pulse Ox 98.3 F 60 18 111/61 94 L 02/06/18 14:27 02/06/18 14:27 02/06/18 14:27 02/06/18 14:27 02/05/18 21:00 HEENT: SANDRA, EOM Intact Cor: Atrial fib Lungs: Clear to P&A Abd: Soft, Normal bowel sounds, No organomegaly Ext:No significant edema LE dressing CBC, BMP 02/06/18 10:15 02/06/18 10:15 Current Medications Generic Name Dose Route Start Last Admin Trade Name Freq PRN Reason Stop Dose Admin Acetaminophen 650 mg 02/03/18 16:52 02/04/18 17:51 Tylenol - PO 650 mg Q6H PRN Administration PAIN 6-10 Allopurinol 100 mg 02/03/18 10:00 02/06/18 10:15 Zyloprim - PO 100 mg DAILY [facility] Administration Apixaban 2.5 mg 02/04/18 22:00 02/06/18 15:34 Eliquis - PO Not Given BID [facility] Atorvastatin Calcium 10 mg 02/03/18 22:00 02/05/18 22:19 Lipitor - PO 10 mg HS [facility] Administration Furosemide 80 mg 02/03/18 10:00 02/05/18 09:55 Lasix - PO 80 mg DAILY [facility] Administration Hydralazine HCl 50 mg 02/03/18 10:00 02/06/18 15:34 Apresoline - PO Not Given BID [facility] Hydrocortisone 1 applic 02/05/18 02:15 02/06/18 13:29 Anusol 2.5% Hc Cream - TP 1 applic BID [facility] Administration Hydroxyzine HCl 25 mg 02/05/18 02:13 02/05/18 22:19 Atarax - PO 25 mg Q8H PRN Administration ITCHING Piperacillin Sod/Tazobactam 50 mls @ 100 mls/hr 02/03/18 14:00 02/06/18 13:28 Sod 2.25 gm/ Dextrose IVPB 100 mls/hr Q8H [facility] Administration Protocol Metoprolol Tartrate 25 mg 02/03/18 10:00 02/06/18 10:15 Lopressor - PO 25 mg BID [facility] Administration Mupirocin 1 applic 02/05/18 22:00 02/06/18 13:30 Bactroban 2% Ointment - TP 1 applic BID [facility] Administration Nystatin 1 applic 02/05/18 19:00 02/06/18 13:31 Nystop Powder - TP 1 applic DAILY [facility] Administration Pantoprazole Sodium 40 mg 02/03/18 10:00 02/06/18 10:15 Protonix Iv IVPUSH 40 mg DAILY [facility] Administration Tramadol HCl 50 mg 02/05/18 15:09 02/06/18 13:26 Ultram - PO 50 mg Q4H PRN Administration PAIN LEVEL 6-10 Triamcinolone Acetonide 1 applic 02/05/18 22:00 02/06/18 13:30 Aristocort 0.1% Ointment - TP 1 applic BID [facility] Administration Impression: Lung/pancreatic/liver masses For biopsy On a/c with Eliquis Need to know when biopsy is to be performed (last ASA was10/9) --Will need to stop eliquis 72 hours before procedure.
--- NOTE | 2018-02-06 16:15 | PN ---
Progress Note, Physician History of Present Illness: Seated in bed Occasional cough, white sputum No c/o fever/ chills Afebrile BC (-) Sputum normal nicci - Current Medication List Current Medications: Active Medications Acetaminophen (Tylenol -) 650 mg PO Q6H PRN PRN Reason: PAIN 6-10 Last Admin: 02/04/18 17:51 Dose: 650 mg Allopurinol (Zyloprim -) 100 mg PO DAILY [facility] Last Admin: 02/06/18 10:15 Dose: 100 mg Apixaban (Eliquis -) 2.5 mg PO BID [facility] Last Admin: 02/06/18 15:34 Dose: Not Given Atorvastatin Calcium (Lipitor -) 10 mg PO HS [facility] Last Admin: 02/05/18 22:19 Dose: 10 mg Furosemide (Lasix -) 80 mg PO DAILY [facility] Last Admin: 02/05/18 09:55 Dose: 80 mg Hydralazine HCl (Apresoline -) 50 mg PO BID [facility] Last Admin: 02/06/18 15:34 Dose: Not Given Hydrocortisone (Anusol 2.5% Hc Cream -) 1 applic TP BID [facility] Last Admin: 02/06/18 13:29 Dose: 1 applic Hydroxyzine HCl (Atarax -) 25 mg PO Q8H PRN PRN Reason: ITCHING Last Admin: 02/05/18 22:19 Dose: 25 mg Piperacillin Sod/Tazobactam (Sod 2.25 gm/ Dextrose) 50 mls @ 100 mls/hr IVPB Q8H [facility]; Protocol Last Admin: 02/06/18 13:28 Dose: 100 mls/hr Metoprolol Tartrate (Lopressor -) 25 mg PO BID [facility] Last Admin: 02/06/18 10:15 Dose: 25 mg Mupirocin (Bactroban 2% Ointment -) 1 applic TP BID [facility] Last Admin: 02/06/18 13:30 Dose: 1 applic Nystatin (Nystop Powder -) 1 applic TP DAILY [facility] Last Admin: 02/06/18 13:31 Dose: 1 applic Pantoprazole Sodium (Protonix Iv) 40 mg IVPUSH DAILY [facility] Last Admin: 02/06/18 10:15 Dose: 40 mg Tramadol HCl (Ultram -) 50 mg PO Q4H PRN PRN Reason: PAIN LEVEL 6-10 Last Admin: 02/06/18 13:26 Dose: 50 mg Triamcinolone Acetonide (Aristocort 0.1% Ointment -) 1 applic TP BID [facility] Last Admin: 02/06/18 13:30 Dose: 1 applic - Objective Vital Signs: Vital Signs Temperature 98.3 F 02/06/18 14:27 Pulse Rate 60 02/06/18 14:27 Respiratory Rate 18 02/06/18 14:27 Blood Pressure 111/61 02/06/18 14:27 O2 Sat by Pulse Oximetry (%) 94 L 02/05/18 21:00 Constitutional: Yes: No Distress Eyes: Yes: Conjunctiva Clear Cardiovascular: Yes: Regular Rate and Rhythm, S1, S2 Respiratory: Yes: Rhonchi Gastrointestinal: Yes: Normal Bowel Sounds, Soft. No: Tenderness Edema: Yes Labs: CBC, BMP 02/06/18 10:15 02/06/18 10:15 INR, PTT INR 1.12 (0.83-1.09) H 02/03/18 01:17 Assessment/Plan Probable metastatic ca ?post obstructive pneumonia Azotemia Await tissue dx Continue zosyn Discussed with family at bedside
--- NOTE | 2018-02-06 16:29 | PN ---
Progress Note (short form) - Note Progress Note: Spoke with Dr. Saenz he will do liver biopsy on Friday02/09/18. Eliquis will be held as of now. Problem List - Problems (1) Lung mass (2) Atrial fibrillation (3) Liver mass (4) Bone lesion (5) PNA (pneumonia) (6) CKD (chronic kidney disease) stage 4, GFR 15-29 ml/min (7) CAD (coronary artery disease) (8) CHF (congestive heart failure) (9) Chest pain
--- NOTE | 2018-02-06 16:33 | PN ---
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 He has worsening chronic leg edema and pruritis. CT done no dissection, PE. Mild abdominal aortic aneurysm 3.8 cm, RLL mass and possible liver mets. 02/05/18 He is complaining of left shoulder pain. Worse with movement. - Current Medication List Current Medications: Active Medications Acetaminophen (Tylenol -) 650 mg PO Q6H PRN PRN Reason: PAIN 6-10 Last Admin: 02/04/18 17:51 Dose: 650 mg Allopurinol (Zyloprim -) 100 mg PO DAILY [facility] Last Admin: 02/06/18 10:15 Dose: 100 mg Atorvastatin Calcium (Lipitor -) 10 mg PO HS [facility] Last Admin: 02/05/18 22:19 Dose: 10 mg Furosemide (Lasix -) 80 mg PO DAILY [facility] Last Admin: 02/05/18 09:55 Dose: 80 mg Hydralazine HCl (Apresoline -) 50 mg PO BID [facility] Last Admin: 02/06/18 15:34 Dose: Not Given Hydrocortisone (Anusol 2.5% Hc Cream -) 1 applic TP BID [facility] Last Admin: 02/06/18 13:29 Dose: 1 applic Hydroxyzine HCl (Atarax -) 25 mg PO Q8H PRN PRN Reason: ITCHING Last Admin: 02/05/18 22:19 Dose: 25 mg Piperacillin Sod/Tazobactam (Sod 2.25 gm/ Dextrose) 50 mls @ 100 mls/hr IVPB Q8H [facility]; Protocol Last Admin: 02/06/18 13:28 Dose: 100 mls/hr Metoprolol Tartrate (Lopressor -) 25 mg PO BID [facility] Last Admin: 02/06/18 10:15 Dose: 25 mg Mupirocin (Bactroban 2% Ointment -) 1 applic TP BID [facility] Last Admin: 02/06/18 13:30 Dose: 1 applic Nystatin (Nystop Powder -) 1 applic TP DAILY [facility] Last Admin: 02/06/18 13:31 Dose: 1 applic Pantoprazole Sodium (Protonix Iv) 40 mg IVPUSH DAILY [facility] Last Admin: 02/06/18 10:15 Dose: 40 mg Tramadol HCl (Ultram -) 50 mg PO Q4H PRN PRN Reason: PAIN LEVEL 6-10 Last Admin: 02/06/18 13:26 Dose: 50 mg Triamcinolone Acetonide (Aristocort 0.1% Ointment -) 1 applic TP BID [facility] Last Admin: 02/06/18 13:30 Dose: 1 applic - Objective Vital Signs: Vital Signs Temperature 98.3 F 02/06/18 14:27 Pulse Rate 60 02/06/18 14:27 Respiratory Rate 18 02/06/18 14:27 Blood Pressure 111/61 02/06/18 14:27 O2 Sat by Pulse Oximetry (%) 94 L 02/05/18 21:00 Constitutional: Yes: No Distress Eyes: Yes: WNL HENT: Yes: WNL Neck: Yes: WNL Cardiovascular: Yes: Regular Rate and Rhythm (NL S1S2, NL [facility]HG) Respiratory: Yes: CTA Bilaterally Gastrointestinal: Yes: Normal Bowel Sounds, Soft Extremities: Yes: WNL Edema: No Neurological: Yes: Alert, Oriented Labs: CBC, BMP 02/06/18 10:15 02/06/18 10:15 INR, PTT INR 1.12 (0.83-1.09) H 02/03/18 01:17 Assessment/Plan 87M with h/o AAA, CAD, CKD followed by Dr Isabel Daily, CABG, chronic A-fib on Eliquis, chronic diastolic CHF EF 70% 2017 at [facility], memory loss, 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 He has worsening chronic leg edema and pruritis. CT done no dissection, PE. Mild abdominal aortic aneurysm 3.8 cm, RLL mass and possible liver mets. Plan Chest pain Non cardiac left shoulder pain. Worse when he moves it. Cardiac enzymes are negative Left should pain is improving on Tramadol AFIB AC with Eliquis Rate control with BB. PPM Functioning well, recently checked. CAD Continue Statin Lung Mass Can hold AC and ASA if biopsy is planned Usually we hold Eliquis for 48 to 72 hours Hold Aspirin for 5 - 7 days No need for bridging in this case Low BP Would DC hydralazine Continue Metoprolol 25 mg BID and Lasix 80 mg PO daily
[2018-02-06 17:40] LABS: POTASSIUM 4.8 mmol/L (3.5-5.1)
[2018-02-06 17:42] LABS: URINE APPEARANCE CLEAR; URINE BILIRUBIN NEGATIVE (<2.0 mg/dL); URINE COLOR YELLOW; URINE GLUCOSE (UA) NEGATIVE (NEGATIVE); URINE KETONE NEGATIVE (NEGATIVE); URINE LEUK ESTERASE NEGATIVE (NEGATIVE); URINE NITRITE NEGATIVE (NEGATIVE); URINE PROTEIN NEGATIVE (NEGATIVE); URINE UROBILINOGEN NEGATIVE mg/dL (0.2-1.0)
[2018-02-06] MEDS ORDERED: PT OWN MED DRAWER 7, Y5N ONE ×2 (22:02→23:35)
[2018-02-06] MEDS: ACETAMINOPHEN 325 MG TABLET (FP) PO PRN (22:05)
[2018-02-06] MEDS: hydrOXYzine HCL 25 MG TABLET (FP) PO PRN (22:05)
[2018-02-06] MEDS: ATORVASTATIN CA 10 MG TABLET (FP) PO SCH (22:07)
[2018-02-07] MEDS ORDERED: PIPERACILLIN/TAZOBACTAM 2.25 GM VIAL IVPB ONE ×3 (05:32→22:31)
[2018-02-07] MEDS ORDERED: DEXTROSE 5%-WATER - 50 ML IVPB ONE ×3 (05:32→22:31)
[2018-02-07] MEDS: PIPERACILLIN/TAZOB 2.25 GM 2.25 GM in DEXTROSE 5%-WATER - 50 ML IVPB SCH ×3 (05:53→22:59)
[2018-02-07] MEDS: hydrOXYzine HCL 25 MG TABLET (FP) PO PRN ×2 (06:58→22:44)
[2018-02-07 07:35] LABS: BASO % 0.6 % (0-2.0); EOS % 7.1 % (0-4.5); HEMATOCRIT 30.8 % (35.4-49); HEMOGLOBIN 10.1 GM/dL (11.7-16.9); LYMPH % 11.5 % (8-40); MCH 28.1 pg (25.7-33.7); MCHC 32.7 g/dl (32.0-35.9); MEAN PLT VOLUME 8.7 fl (7.5-11.1); MONO % 12.4 % (3.8-10.2); NEUT % 68.4 % (42.8-82.8); PLATELET COUNT 273 K/MM3 (134-434); RBC 3.58 M/mm3 (4.00-5.60); RDW 19.4 % (11.9-15.9); WHITE BLOOD COUNT 9.3 K/mm3 (4.0-10.0)
[2018-02-07 08:43] LABS: ALBUMIN 2.4 g/dl (3.4-5.0); ALK PHOS 60 U/L (45-117); ANION GAP 13 MMOL/L (8-16); BILIRUBIN,TOTAL 0.4 mg/dL (0.2-1); BLOOD UREA NITROGEN 91 mg/dL (7-18); CHLORIDE 100 mmol/L (98-107); CO2 21 mmol/L (21-32); CREATININE 4.2 mg/dL (0.55-1.3); GLUCOSE,RANDOM 81 mg/dL (74-106); POTASSIUM 4.2 mmol/L (3.5-5.1); SGOT/AST 51 U/L (15-37); SGPT/ALT 42 U/L (13-61); SODIUM 134 mmol/L (136-145); TOT PROT 5.7 g/dl (6.4-8.2)
--- NOTE | 2018-02-07 10:05 | PN ---
Progress Note, Physician History of Present Illness: Seated in bed C/O generalized pruritis which, according to daughter, has been chronic for at least 1 year Occasional cough, white sputum + L pleuritic cp with cough No c/o fever/ chills Afebrile WBC WNL BC (-) Sputum normal nicci - Current Medication List Current Medications: Active Medications Acetaminophen (Tylenol -) 650 mg PO Q6H PRN PRN Reason: PAIN 6-10 Last Admin: 02/06/18 22:05 Dose: 650 mg Allopurinol (Zyloprim -) 100 mg PO DAILY [facility] Last Admin: 02/06/18 10:15 Dose: 100 mg Atorvastatin Calcium (Lipitor -) 10 mg PO HS [facility] Last Admin: 02/06/18 22:07 Dose: 10 mg Hydralazine HCl (Apresoline -) 50 mg PO BID [facility] Last Admin: 02/06/18 22:08 Dose: 50 mg Hydrocortisone (Anusol 2.5% Hc Cream -) 1 applic TP BID [facility] Last Admin: 02/06/18 22:19 Dose: 1 applic Hydroxyzine HCl (Atarax -) 25 mg PO Q8H PRN PRN Reason: ITCHING Last Admin: 02/07/18 06:58 Dose: 25 mg Piperacillin Sod/Tazobactam (Sod 2.25 gm/ Dextrose) 50 mls @ 100 mls/hr IVPB Q8H [facility]; Protocol Last Admin: 02/07/18 05:53 Dose: 100 mls/hr Metoprolol Tartrate (Lopressor -) 25 mg PO BID [facility] Last Admin: 02/06/18 22:07 Dose: 25 mg Mupirocin (Bactroban 2% Ointment -) 1 applic TP BID [facility] Last Admin: 02/06/18 22:07 Dose: 1 applic Nystatin (Nystop Powder -) 1 applic TP DAILY [facility] Last Admin: 02/06/18 13:31 Dose: 1 applic Pantoprazole Sodium (Protonix Iv) 40 mg IVPUSH DAILY [facility] Last Admin: 02/06/18 10:15 Dose: 40 mg Tramadol HCl (Ultram -) 50 mg PO Q4H PRN PRN Reason: PAIN LEVEL 6-10 Last Admin: 02/06/18 13:26 Dose: 50 mg Triamcinolone Acetonide (Aristocort 0.1% Ointment -) 1 applic TP BID [facility] Last Admin: 02/06/18 22:19 Dose: 1 applic - Objective Vital Signs: Vital Signs Temperature 98 F 02/06/18 21:58 Pulse Rate 79 02/06/18 21:58 Respiratory Rate 18 02/06/18 21:58 Blood Pressure 131/67 02/06/18 21:58 O2 Sat by Pulse Oximetry (%) 96 02/06/18 21:00 Constitutional: Yes: No Distress Eyes: Yes: Conjunctiva Clear Cardiovascular: Yes: Regular Rate and Rhythm, S1, S2 Respiratory: Yes: Rhonchi Gastrointestinal: Yes: Normal Bowel Sounds, Soft. No: Tenderness Edema: LLE: 1+, RLE: 1+ Integumentary: Yes: Other (no generalized rash noted. Mild erythema R>L LE) Labs: CBC, BMP 02/07/18 06:00 02/07/18 06:00 INR, PTT INR 1.12 (0.83-1.09) H 02/03/18 01:17 Assessment/Plan Probable metastatic ca ?post obstructive pneumonia Azotemia Await tissue dx Continue zosyn Doubt B lactam allergy Discussed with daughter at bedside
[2018-02-07] MEDS ORDERED: POLYETHYLENE GLYCOL 3350 119 GM BTL PO ONE (10:17)
[2018-02-07] MEDS: hydrALAZINE HCL 25 MG TABLET (FP) PO SCH ×2 (10:48→22:44)
[2018-02-07] MEDS: ALLOPURINOL 100 MG TABLET (FP) PO SCH (10:48)
[2018-02-07] MEDS: METOPROLOL TARTRATE 25 MG TABLET (FP) PO SCH ×2 (10:48→22:44)
[2018-02-07] MEDS: PANTOPRAZOLE SODIUM 40 MG VIAL IVPUSH SCH (10:49)
[2018-02-07] MEDS: HYDROCORTISONE 2.5% TOPICAL CREAM 30 GM TUBE TP SCH ×2 (11:07→22:53)
[2018-02-07] MEDS ORDERED: PT OWN MED DRAWER 7, Y5N ONE (11:08)
[2018-02-07] MEDS: MUPIROCIN 2% TOPICAL OINTMENT 22 GM TUBE TP SCH ×2 (11:08→22:59)
--- NOTE | 2018-02-07 11:55 | PN ---
Progress Note, Physician Chief Complaint: no bm yet for 2 3 days / vss plan miralax dvt legs tx hold lasix and watch renal numbers cr higher today spoke to daughter - Current Medication List Current Medications: Active Medications Acetaminophen (Tylenol -) 650 mg PO Q6H PRN PRN Reason: PAIN 6-10 Last Admin: 02/06/18 22:05 Dose: 650 mg Allopurinol (Zyloprim -) 100 mg PO DAILY [facility] Last Admin: 02/07/18 10:48 Dose: 100 mg Atorvastatin Calcium (Lipitor -) 10 mg PO HS [facility] Last Admin: 02/06/18 22:07 Dose: 10 mg Hydralazine HCl (Apresoline -) 50 mg PO BID [facility] Last Admin: 02/07/18 10:48 Dose: 50 mg Hydrocortisone (Anusol 2.5% Hc Cream -) 1 applic TP BID [facility] Last Admin: 02/06/18 22:19 Dose: 1 applic Hydroxyzine HCl (Atarax -) 25 mg PO Q8H PRN PRN Reason: ITCHING Last Admin: 02/07/18 06:58 Dose: 25 mg Piperacillin Sod/Tazobactam (Sod 2.25 gm/ Dextrose) 50 mls @ 100 mls/hr IVPB Q8H [facility]; Protocol Last Admin: 02/07/18 05:53 Dose: 100 mls/hr Metoprolol Tartrate (Lopressor -) 25 mg PO BID [facility] Last Admin: 02/07/18 10:48 Dose: 25 mg Mupirocin (Bactroban 2% Ointment -) 1 applic TP BID [facility] Last Admin: 02/06/18 22:07 Dose: 1 applic Nystatin (Nystop Powder -) 1 applic TP DAILY [facility] Last Admin: 02/06/18 13:31 Dose: 1 applic Pantoprazole Sodium (Protonix Iv) 40 mg IVPUSH DAILY [facility] Last Admin: 02/07/18 10:49 Dose: 40 mg Polyethylene Glycol (Miralax (For Daily Use) -) 17 gm PO ONCE ONE Stop: 02/07/18 10:18 Tramadol HCl (Ultram -) 50 mg PO Q4H PRN PRN Reason: PAIN LEVEL 6-10 Last Admin: 02/06/18 13:26 Dose: 50 mg Triamcinolone Acetonide (Aristocort 0.1% Ointment -) 1 applic TP BID [facility] Last Admin: 02/06/18 22:19 Dose: 1 applic - Objective Vital Signs: Vital Signs Temperature 97.8 F 02/07/18 10:51 Pulse Rate 62 02/07/18 10:51 Respiratory Rate 18 02/07/18 10:51 Blood Pressure 105/56 L 02/07/18 10:51 O2 Sat by Pulse Oximetry (%) 96 02/06/18 21:00 Labs: CBC, BMP 02/07/18 06:00 02/07/18 06:00 INR, PTT INR 1.12 (0.83-1.09) H 02/03/18 01:17 Problem List - Problems (1) Atrial fibrillation Code(s): I48.91 - UNSPECIFIED ATRIAL FIBRILLATION Qualifiers: Atrial fibrillation type: permanent Qualified Code(s): I48.2 - Chronic atrial fibrillation
--- NOTE | 2018-02-07 13:48 | PN ---
Progress Note (short form) - Note Progress Note: RENAL awake and alert sitting up has oxygen on Last Vital Signs Temp Pulse Resp BP Pulse Ox 97.8 F 62 18 105/56 L 96 02/07/18 10:51 02/07/18 10:51 02/07/18 10:51 02/07/18 10:51 02/07/18 09:00 lungs bilat crackles cvs s1s2 rr abd soft ext +edema neruo a+ox3 CBC, BMP 02/07/18 06:00 02/07/18 06:00 Current Medications Generic Name Dose Route Start Last Admin Trade Name Freq PRN Reason Stop Dose Admin Acetaminophen 650 mg 02/03/18 16:52 02/06/18 22:05 Tylenol - PO 650 mg Q6H PRN Administration PAIN 6-10 Allopurinol 100 mg 02/03/18 10:00 02/07/18 10:48 Zyloprim - PO 100 mg DAILY [facility] Administration Atorvastatin Calcium 10 mg 02/03/18 22:00 02/06/18 22:07 Lipitor - PO 10 mg HS [facility] Administration Hydralazine HCl 50 mg 02/03/18 10:00 02/07/18 10:48 Apresoline - PO 50 mg BID [facility] Administration Hydrocortisone 1 applic 02/05/18 02:15 02/06/18 22:19 Anusol 2.5% Hc Cream - TP 1 applic BID [facility] Administration Hydroxyzine HCl 25 mg 02/05/18 02:13 02/07/18 06:58 Atarax - PO 25 mg Q8H PRN Administration ITCHING Piperacillin Sod/Tazobactam 50 mls @ 100 mls/hr 02/03/18 14:00 02/07/18 05:53 Sod 2.25 gm/ Dextrose IVPB 100 mls/hr Q8H [facility] Administration Protocol Metoprolol Tartrate 25 mg 02/03/18 10:00 02/07/18 10:48 Lopressor - PO 25 mg BID [facility] Administration Mupirocin 1 applic 02/05/18 22:00 02/06/18 22:07 Bactroban 2% Ointment - TP 1 applic BID [facility] Administration Nystatin 1 applic 02/05/18 19:00 02/06/18 13:31 Nystop Powder - TP 1 applic DAILY [facility] Administration Pantoprazole Sodium 40 mg 02/03/18 10:00 02/07/18 10:49 Protonix Iv IVPUSH 40 mg DAILY [facility] Administration Tramadol HCl 50 mg 02/05/18 15:09 02/06/18 13:26 Ultram - PO 50 mg Q4H PRN Administration PAIN LEVEL 6-10 Triamcinolone Acetonide 1 applic 02/05/18 22:00 02/06/18 22:19 Aristocort 0.1% Ointment - TP 1 applic BID [facility] Administration Impression 1. CKD 2. CARROL- probably related to contrast 3. CAD 4. s/p aicd 5. liver lesions 6. pancreatic lesions 7. lung mass 8. pna 9. a-fib 10. HTN 11. AAA 12. HLD high ca19-9 and ca 27-29 Plan continue to monitor he has no signs or symptoms suggestive of emergency dialysis will need prn weston MENSAH
--- NOTE | 2018-02-07 14:00 | PN ---
Progress Note (short form) - Note Progress Note: No acute events overnight. Still with some left sided chest discomfort. Intake & Output 02/04/18 02/05/18 02/06/18 02/07/18 23:59 23:59 23:59 23:59 Intake Total 500 450 50 250 Output Total 225 Balance 500 450 -175 250 Weight 181 lb Last Vital Signs Temp Pulse Resp BP Pulse Ox 97.8 F 62 18 105/56 L 96 02/07/18 10:51 02/07/18 10:51 02/07/18 10:51 02/07/18 10:51 02/07/18 09:00 Active Medications Acetaminophen (Tylenol -) 650 mg PO Q6H PRN PRN Reason: PAIN 6-10 Last Admin: 02/06/18 22:05 Dose: 650 mg Allopurinol (Zyloprim -) 100 mg PO DAILY [facility] Last Admin: 02/07/18 10:48 Dose: 100 mg Atorvastatin Calcium (Lipitor -) 10 mg PO HS [facility] Last Admin: 02/06/18 22:07 Dose: 10 mg Hydralazine HCl (Apresoline -) 50 mg PO BID [facility] Last Admin: 02/07/18 10:48 Dose: 50 mg Hydrocortisone (Anusol 2.5% Hc Cream -) 1 applic TP BID [facility] Last Admin: 02/06/18 22:19 Dose: 1 applic Hydroxyzine HCl (Atarax -) 25 mg PO Q8H PRN PRN Reason: ITCHING Last Admin: 02/07/18 06:58 Dose: 25 mg Piperacillin Sod/Tazobactam (Sod 2.25 gm/ Dextrose) 50 mls @ 100 mls/hr IVPB Q8H [facility]; Protocol Last Admin: 02/07/18 05:53 Dose: 100 mls/hr Metoprolol Tartrate (Lopressor -) 25 mg PO BID [facility] Last Admin: 02/07/18 10:48 Dose: 25 mg Mupirocin (Bactroban 2% Ointment -) 1 applic TP BID [facility] Last Admin: 02/06/18 22:07 Dose: 1 applic Nystatin (Nystop Powder -) 1 applic TP DAILY [facility] Last Admin: 02/06/18 13:31 Dose: 1 applic Pantoprazole Sodium (Protonix Iv) 40 mg IVPUSH DAILY [facility] Last Admin: 02/07/18 10:49 Dose: 40 mg Tramadol HCl (Ultram -) 50 mg PO Q4H PRN PRN Reason: PAIN LEVEL 6-10 Last Admin: 02/06/18 13:26 Dose: 50 mg Triamcinolone Acetonide (Aristocort 0.1% Ointment -) 1 applic TP BID [facility] Last Admin: 02/06/18 22:19 Dose: 1 applic Constitutional: Yes: NAD Eyes: Yes: WNL HENT: Yes: WNL Neck: Yes: WNL Cardiovascular: Yes: Pulse Irregular, S1, S2 Respiratory: Yes: Bibasilar Rales Left > right Gastrointestinal: Yes: Normal Bowel Sounds, Soft Extremities: Yes: WNL Edema: No Labs: Laboratory Results - last 24 hr 02/06/18 02/06/18 02/06/18 16:00 16:00 16:00 WBC RBC Hgb Hct MCV MCH MCHC RDW Plt Count MPV Absolute Neuts (auto) Neutrophils % Lymphocytes % Monocytes % Eosinophils % Basophils % Nucleated RBC % Sodium 135 L Potassium 4.8 Chloride 100 Carbon Dioxide 23 Anion Gap 12 BUN Creatinine Creat Clearance w eGFR Random Glucose Calcium Total Bilirubin AST ALT Alkaline Phosphatase Total Protein Albumin Urine Color Yellow Urine Appearance Clear Urine pH 5.0 Ur Specific [place] 1.019 Urine Protein Negative Urine Glucose (UA) Negative Urine Ketones Negative Urine Blood Negative Urine Nitrite Negative Urine Bilirubin Negative Urine Urobilinogen Negative Ur Leukocyte Esterase Negative Urine Creatinine 158.0 H 02/07/18 02/07/18 06:00 06:00 WBC 9.3 RBC 3.58 L Hgb 10.1 L Hct 30.8 L MCV 86.0 MCH 28.1 MCHC 32.7 RDW 19.4 H Plt Count 273 D MPV 8.7 Absolute Neuts (auto) 6.4 Neutrophils % 68.4 Lymphocytes % 11.5 Monocytes % 12.4 H Eosinophils % 7.1 H Basophils % 0.6 Nucleated RBC % 0 Sodium 134 L Potassium 4.2 Chloride 100 Carbon Dioxide 21 Anion Gap 13 BUN 91 H Creatinine 4.2 H Creat Clearance w eGFR 13.52 Random Glucose 81 Calcium 8.0 L Total Bilirubin 0.4 AST 51 H ALT 42 Alkaline Phosphatase 60 Total Protein 5.7 L Albumin 2.4 L Urine Color Urine Appearance Urine pH Ur Specific [place] Urine Protein Urine Glucose (UA) Urine Ketones Urine Blood Urine Nitrite Urine Bilirubin Urine Urobilinogen Ur Leukocyte Esterase Urine Creatinine Assessment/Plan Problem List - Problems (1) Lung mass Code(s): R91.8 - OTHER NONSPECIFIC ABNORMAL FINDING OF LUNG FIELD (2) PNA (pneumonia) Code(s): J18.9 - PNEUMONIA, UNSPECIFIED ORGANISM Qualifiers: Pneumonia type: due to unspecified organism Laterality: unspecified laterality Lung location: unspecified part of lung Qualified Code(s): J18.9 - Pneumonia, unspecified organism (3) Bone lesion Code(s): M89.9 - DISORDER OF BONE, UNSPECIFIED (4) CKD (chronic kidney disease) stage 4, GFR 15-29 ml/min Code(s): N18.4 - CHRONIC KIDNEY DISEASE, STAGE 4 (SEVERE) (5) Liver mass Code(s): R16.0 - HEPATOMEGALY, NOT ELSEWHERE CLASSIFIED (6) Atrial fibrillation Code(s): I48.91 - UNSPECIFIED ATRIAL FIBRILLATION Qualifiers: Atrial fibrillation type: permanent Qualified Code(s): I48.2 - Chronic atrial fibrillation (7) CAD (coronary artery disease) Code(s): I25.10 - ATHSCL HEART DISEASE OF [place] CORONARY ARTERY W/O ANG PCTRS (8) CHF (congestive heart failure) Code(s): I50.9 - HEART FAILURE, UNSPECIFIED (9) Hx of CABG Code(s): Z95.1 - PRESENCE OF AORTOCORONARY BYPASS GRAFT Assessment/Plan Lung Mass - r/o Metastatic Disease R/O Pneumonia CAD s/p CABG LV Diastolic Dysfunction Atrial Fibrillation CKD - antibiotics as per ID - For CT guided needle biopsy of liver lesion on Friday so NOAC was held - rate control - O2 as needed DR DE LEON
[2018-02-07] MEDS: NYSTATIN POWDER 100,000 UNITS/GM - 15 GM TOPICAL POWDER TP SCH (14:07)
[2018-02-07] MEDS: TRIAMCINOLONE ACET 0.1% OINT 15 GM TUBE TP SCH ×2 (14:07→22:49)
--- NOTE | 2018-02-07 16:32 | PN ---
Progress Note, Physician Chief Complaint: lung, pancreatic, liver masses History of Present Illness: Feels well. Walking around a little this afternoon, with assitance. C/o chronic pruritis - Current Medication List Current Medications: Active Medications Acetaminophen (Tylenol -) 650 mg PO Q6H PRN PRN Reason: PAIN 6-10 Last Admin: 02/06/18 22:05 Dose: 650 mg Allopurinol (Zyloprim -) 100 mg PO DAILY [facility] Last Admin: 02/07/18 10:48 Dose: 100 mg Atorvastatin Calcium (Lipitor -) 10 mg PO HS [facility] Last Admin: 02/06/18 22:07 Dose: 10 mg Hydralazine HCl (Apresoline -) 50 mg PO BID [facility] Last Admin: 02/07/18 10:48 Dose: 50 mg Hydrocortisone (Anusol 2.5% Hc Cream -) 1 applic TP BID [facility] Last Admin: 02/07/18 11:07 Dose: 1 applic Hydroxyzine HCl (Atarax -) 25 mg PO Q8H PRN PRN Reason: ITCHING Last Admin: 02/07/18 06:58 Dose: 25 mg Piperacillin Sod/Tazobactam (Sod 2.25 gm/ Dextrose) 50 mls @ 100 mls/hr IVPB Q8H [facility]; Protocol Last Admin: 02/07/18 14:06 Dose: 100 mls/hr Metoprolol Tartrate (Lopressor -) 25 mg PO BID [facility] Last Admin: 02/07/18 10:48 Dose: 25 mg Mupirocin (Bactroban 2% Ointment -) 1 applic TP BID [facility] Last Admin: 02/07/18 11:08 Dose: 1 applic Nystatin (Nystop Powder -) 1 applic TP DAILY [facility] Last Admin: 02/07/18 14:07 Dose: 1 applic Pantoprazole Sodium (Protonix Iv) 40 mg IVPUSH DAILY [facility] Last Admin: 02/07/18 10:49 Dose: 40 mg Tramadol HCl (Ultram -) 50 mg PO Q4H PRN PRN Reason: PAIN LEVEL 6-10 Last Admin: 02/06/18 13:26 Dose: 50 mg Triamcinolone Acetonide (Aristocort 0.1% Ointment -) 1 applic TP BID [facility] Last Admin: 02/07/18 14:07 Dose: 1 applic - Objective Vital Signs: Vital Signs Temperature 97.6 F 02/07/18 14:39 Pulse Rate 61 02/07/18 14:39 Respiratory Rate 18 02/07/18 14:39 Blood Pressure 116/60 02/07/18 14:39 O2 Sat by Pulse Oximetry (%) 96 02/07/18 09:00 Constitutional: Yes: Well Nourished, No Distress Eyes: No: Sclera Icterus Neck: Yes: Supple Cardiovascular: Yes: Regular Rate and Rhythm Respiratory: Yes: Regular, CTA Bilaterally Gastrointestinal: Yes: Soft. No: Tenderness Extremities: Yes: Other (RLE with clean dressing) Edema: LLE: Trace, RLE: Trace Neurological: Yes: WNL, Oriented Labs: CBC, BMP 02/07/18 06:00 02/07/18 06:00 INR, PTT INR 1.12 (0.83-1.09) H 02/03/18 01:17 Assessment/Plan lung, pancreatic, liver masses awaiting bx of liver on Friday eliquis and aspirin on hold daughter requests a trial of naltrexone for refractory pruritis, please consider She wants to follow with Dr. Ward after discharge
[2018-02-07] MEDS: ATORVASTATIN CA 10 MG TABLET (FP) PO SCH (22:44)
[2018-02-07] MEDS: traMADol HCL 50 MG TABLET PO PRN (22:48)
[2018-02-08] MEDS ORDERED: PIPERACILLIN/TAZOBACTAM 2.25 GM VIAL IVPB ONE ×3 (05:15→19:52)
[2018-02-08] MEDS ORDERED: DEXTROSE 5%-WATER - 50 ML IVPB ONE ×3 (05:15→19:52)
[2018-02-08] MEDS: PIPERACILLIN/TAZOB 2.25 GM 2.25 GM in DEXTROSE 5%-WATER - 50 ML IVPB SCH ×4 (05:45→21:08)
[2018-02-08 07:51] LABS: BASO % 0.5 % (0-2.0); EOS % 6.1 % (0-4.5); HEMATOCRIT 32.2 % (35.4-49); HEMOGLOBIN 10.4 GM/dL (11.7-16.9); LYMPH % 10.9 % (8-40); MCHC 32.3 g/dl (32.0-35.9); MEAN CELL VOLUME 86.5 fl (80-96); MEAN PLT VOLUME 8.9 fl (7.5-11.1); MONO % 14.7 % (3.8-10.2); NEUT % 67.8 % (42.8-82.8); PLATELET COUNT 287 K/MM3 (134-434); RBC 3.72 M/mm3 (4.00-5.60); RDW 19.7 % (11.9-15.9); WHITE BLOOD COUNT 9.7 K/mm3 (4.0-10.0)
[2018-02-08 09:20] LABS: ANION GAP 15 MMOL/L (8-16); BLOOD UREA NITROGEN 101 mg/dL (7-18); CALCIUM 8.3 mg/dL (8.5-10.1); CHLORIDE 101 mmol/L (98-107); CO2 19 mmol/L (21-32); CREATININE 4.5 mg/dL (0.55-1.3); GLUCOSE,RANDOM 83 mg/dL (74-106); POTASSIUM 4.1 mmol/L (3.5-5.1); SODIUM 135 mmol/L (136-145)
[2018-02-08] MEDS ORDERED: PT OWN MED DRAWER 7, Y5N ONE (10:48)
[2018-02-08] MEDS: HYDROCORTISONE 2.5% TOPICAL CREAM 30 GM TUBE TP SCH ×2 (10:57→21:58)
[2018-02-08] MEDS: hydrALAZINE HCL 25 MG TABLET (FP) PO SCH ×2 (10:57→21:08)
[2018-02-08] MEDS: ALLOPURINOL 100 MG TABLET (FP) PO SCH (10:58)
[2018-02-08] MEDS: METOPROLOL TARTRATE 25 MG TABLET (FP) PO SCH ×2 (10:58→21:08)
[2018-02-08] MEDS: MUPIROCIN 2% TOPICAL OINTMENT 22 GM TUBE TP SCH ×2 (10:58→21:58)
[2018-02-08] MEDS: TRIAMCINOLONE ACET 0.1% OINT 15 GM TUBE TP SCH ×2 (10:58→21:58)
[2018-02-08] MEDS: hydrOXYzine HCL 25 MG TABLET (FP) PO PRN ×2 (11:16→20:01)
--- NOTE | 2018-02-08 11:24 | PN ---
Progress Note (short form) - Note Progress Note: RENAL asleep arousable lying down has oxygen on daughter present Last Vital Signs Temp Pulse Resp BP Pulse Ox 98.1 F 59 L 18 117/42 L 98 02/08/18 06:00 02/08/18 06:00 02/08/18 06:00 02/08/18 06:00 02/07/18 21:00 lungs bilat crackles cvs s1s2 rr abd soft ext +edema neruo a+ox3 CBC, BMP 02/08/18 06:45 02/08/18 06:45 Current Medications Generic Name Dose Route Start Last Admin Trade Name Freq PRN Reason Stop Dose Admin Acetaminophen 650 mg 02/03/18 16:52 02/06/18 22:05 Tylenol - PO 650 mg Q6H PRN Administration PAIN 6-10 Allopurinol 100 mg 02/03/18 10:00 02/08/18 10:58 Zyloprim - PO 100 mg DAILY [facility] Administration Atorvastatin Calcium 10 mg 02/03/18 22:00 02/07/18 22:44 Lipitor - PO 10 mg HS [facility] Administration Hydralazine HCl 50 mg 02/03/18 10:00 02/08/18 10:57 Apresoline - PO 50 mg BID [facility] Administration Hydrocortisone 1 applic 02/05/18 02:15 02/08/18 10:57 Anusol 2.5% Hc Cream - TP 1 applic BID [facility] Administration Hydroxyzine HCl 25 mg 02/05/18 02:13 02/08/18 11:16 Atarax - PO 25 mg Q8H PRN Administration ITCHING Piperacillin Sod/Tazobactam 50 mls @ 100 mls/hr 02/03/18 14:00 02/08/18 07:10 Sod 2.25 gm/ Dextrose IVPB 100 mls/hr Q8H [facility] Administration Protocol Metoprolol Tartrate 25 mg 02/03/18 10:00 02/08/18 10:58 Lopressor - PO 25 mg BID [facility] Administration Mupirocin 1 applic 02/05/18 22:00 02/08/18 10:58 Bactroban 2% Ointment - TP 1 applic BID [facility] Administration Nystatin 1 applic 02/05/18 19:00 02/07/18 14:07 Nystop Powder - TP 1 applic DAILY [facility] Administration Pantoprazole Sodium 40 mg 02/03/18 10:00 02/07/18 10:49 Protonix Iv IVPUSH 40 mg DAILY [facility] Administration Tramadol HCl 50 mg 02/05/18 15:09 02/07/18 22:48 Ultram - PO 50 mg Q4H PRN Administration PAIN LEVEL 6-10 Triamcinolone Acetonide 1 applic 02/05/18 22:00 02/08/18 10:58 Aristocort 0.1% Ointment - TP 1 applic BID [facility] Administration Impression 1. CKD 2. CARROL- probably related to contrast 3. CAD 4. s/p aicd 5. liver lesions 6. pancreatic lesions 7. lung mass 8. pna 9. a-fib 10. HTN 11. AAA 12. HLD high ca19-9 and ca 27-29 Plan continue to monitor he has no signs or symptoms suggestive of emergency dialysis will need prn lasix pt took prune juicve last night which can raise his potassium. I have advised family not to give prune juice. Can have miralax, colace, even MOM would be better MV
--- NOTE | 2018-02-08 12:37 | PN ---
Progress Note (short form) - Note Progress Note: No acute events overnight. Still with some left sided rib discomfort. Daughter at he bedside. Intake & Output 02/05/18 02/06/18 02/07/18 02/08/18 23:59 23:59 23:59 23:59 Intake Total 288 95 7647 Output Total 225 Balance 450 -175 1200 Weight 181 lb Last Vital Signs Temp Pulse Resp BP Pulse Ox 98.2 F 61 18 125/62 98 02/08/18 11:23 02/08/18 11:23 02/08/18 11:23 02/08/18 11:23 02/08/18 09:00 Active Medications Acetaminophen (Tylenol -) 650 mg PO Q6H PRN PRN Reason: PAIN 6-10 Last Admin: 02/06/18 22:05 Dose: 650 mg Allopurinol (Zyloprim -) 100 mg PO DAILY [facility] Last Admin: 02/08/18 10:58 Dose: 100 mg Atorvastatin Calcium (Lipitor -) 10 mg PO HS [facility] Last Admin: 02/07/18 22:44 Dose: 10 mg Hydralazine HCl (Apresoline -) 50 mg PO BID [facility] Last Admin: 02/08/18 10:57 Dose: 50 mg Hydrocortisone (Anusol 2.5% Hc Cream -) 1 applic TP BID [facility] Last Admin: 02/08/18 10:57 Dose: 1 applic Hydroxyzine HCl (Atarax -) 25 mg PO Q8H PRN PRN Reason: ITCHING Last Admin: 02/08/18 11:16 Dose: 25 mg Piperacillin Sod/Tazobactam (Sod 2.25 gm/ Dextrose) 50 mls @ 100 mls/hr IVPB Q8H [facility]; Protocol Last Admin: 02/08/18 07:10 Dose: 100 mls/hr Metoprolol Tartrate (Lopressor -) 25 mg PO BID [facility] Last Admin: 02/08/18 10:58 Dose: 25 mg Mupirocin (Bactroban 2% Ointment -) 1 applic TP BID [facility] Last Admin: 02/08/18 10:58 Dose: 1 applic Nystatin (Nystop Powder -) 1 applic TP DAILY [facility] Last Admin: 02/07/18 14:07 Dose: 1 applic Pantoprazole Sodium (Protonix Iv) 40 mg IVPUSH DAILY [facility] Last Admin: 02/07/18 10:49 Dose: 40 mg Tramadol HCl (Ultram -) 50 mg PO Q4H PRN PRN Reason: PAIN LEVEL 6-10 Last Admin: 02/07/18 22:48 Dose: 50 mg Triamcinolone Acetonide (Aristocort 0.1% Ointment -) 1 applic TP BID [facility] Last Admin: 02/08/18 10:58 Dose: 1 applic Constitutional: Yes: NAD Eyes: Yes: WNL HENT: Yes: WNL Neck: Yes: WNL Cardiovascular: Yes: Pulse Irregular, S1, S2 Respiratory: Yes: Bibasilar Rales Left > right Gastrointestinal: Yes: Normal Bowel Sounds, Soft Extremities: Yes: WNL Edema: No Labs: Laboratory Results - last 24 hr 02/08/18 02/08/18 06:45 06:45 WBC 9.7 RBC 3.72 L Hgb 10.4 L Hct 32.2 L MCV 86.5 MCH 28.0 MCHC 32.3 RDW 19.7 H Plt Count 287 MPV 8.9 Absolute Neuts (auto) 6.6 Neutrophils % 67.8 Lymphocytes % 10.9 Monocytes % 14.7 H Eosinophils % 6.1 H Basophils % 0.5 Nucleated RBC % 0 Sodium 135 L Potassium 4.1 Chloride 101 Carbon Dioxide 19 L Anion Gap 15 BUN 101 H Creatinine 4.5 H Creat Clearance w eGFR 12.49 Random Glucose 83 Calcium 8.3 L Assessment/Plan Problem List - Problems (1) Lung mass Code(s): R91.8 - OTHER NONSPECIFIC ABNORMAL FINDING OF LUNG FIELD (2) PNA (pneumonia) Code(s): J18.9 - PNEUMONIA, UNSPECIFIED ORGANISM Qualifiers: Pneumonia type: due to unspecified organism Laterality: unspecified laterality Lung location: unspecified part of lung Qualified Code(s): J18.9 - Pneumonia, unspecified organism (3) Bone lesion Code(s): M89.9 - DISORDER OF BONE, UNSPECIFIED (4) CKD (chronic kidney disease) stage 4, GFR 15-29 ml/min Code(s): N18.4 - CHRONIC KIDNEY DISEASE, STAGE 4 (SEVERE) (5) Liver mass Code(s): R16.0 - HEPATOMEGALY, NOT ELSEWHERE CLASSIFIED (6) Atrial fibrillation Code(s): I48.91 - UNSPECIFIED ATRIAL FIBRILLATION Qualifiers: Atrial fibrillation type: permanent Qualified Code(s): I48.2 - Chronic atrial fibrillation (7) CAD (coronary artery disease) Code(s): I25.10 - ATHSCL HEART DISEASE OF [place] CORONARY ARTERY W/O ANG PCTRS (8) CHF (congestive heart failure) Code(s): I50.9 - HEART FAILURE, UNSPECIFIED (9) Hx of CABG Code(s): Z95.1 - PRESENCE OF AORTOCORONARY BYPASS GRAFT Assessment/Plan Lung Mass - r/o Metastatic Disease R/O Pneumonia CAD s/p CABG LV Diastolic Dysfunction Atrial Fibrillation CKD - antibiotics as per ID - For CT guided needle biopsy of liver lesion tomorrow - rate control - O2 as needed Dr Balbuena
[2018-02-08] MEDS: PANTOPRAZOLE SODIUM 40 MG VIAL IVPUSH SCH (13:34)
--- NOTE | 2018-02-08 13:34 | PN ---
Progress Note, Physician Chief Complaint: nocternal pruritis nl bm vss tolerating diet oob - Current Medication List Current Medications: Active Medications Acetaminophen (Tylenol -) 650 mg PO Q6H PRN PRN Reason: PAIN 6-10 Last Admin: 02/06/18 22:05 Dose: 650 mg Allopurinol (Zyloprim -) 100 mg PO DAILY [facility] Last Admin: 02/08/18 10:58 Dose: 100 mg Atorvastatin Calcium (Lipitor -) 10 mg PO HS [facility] 234 B[facility]S [facility] Last Admin: 02/07/18 22:44 Dose: 10 mg Hydralazine HCl (Apresoline -) 50 mg PO BID [facility] 234 B[facility]S [facility] Last Admin: 02/08/18 10:57 Dose: 50 mg Hydrocortisone (Anusol 2.5% Hc Cream -) 1 applic TP BID [facility] B[facility]S [facility] Last Admin: 02/08/18 10:57 Dose: 1 applic Hydroxyzine HCl (Atarax -) 25 mg PO Q8H PRN PRN Reason: ITCHING Last Admin: 02/08/18 11:16 Dose: 25 mg Piperacillin Sod/Tazobactam (Sod 2.25 gm/ Dextrose) 50 mls @ 100 mls/hr IVPB Q8H [facility] 234 BEDS [facility]; Protocol Last Admin: 02/08/18 07:10 Dose: 100 mls/hr Metoprolol Tartrate (Lopressor -) 25 mg PO BID [facility] Last Admin: 02/08/18 10:58 Dose: 25 mg Mupirocin (Bactroban 2% Ointment -) 1 applic TP BID [facility] 234 B[facility]S [facility] Last Admin: 02/08/18 10:58 Dose: 1 applic Nystatin (Nystop Powder -) 1 applic TP DAILY [facility] 234 B[facility]S [facility] Last Admin: 02/07/18 14:07 Dose: 1 applic Pantoprazole Sodium (Protonix Iv) 40 mg IVPUSH DAILY [facility] 234 B[facility]S [facility] Last Admin: 02/07/18 10:49 Dose: 40 mg Tramadol HCl (Ultram -) 50 mg PO Q4H PRN PRN Reason: PAIN LEVEL 6-10 Last Admin: 02/07/18 22:48 Dose: 50 mg Triamcinolone Acetonide (Aristocort 0.1% Ointment -) 1 applic TP BID [facility] 234 BEDS [facility] Last Admin: 02/08/18 10:58 Dose: 1 applic - Objective Vital Signs: Vital Signs Temperature 98.2 F 02/08/18 11:23 Pulse Rate 61 02/08/18 11:23 Respiratory Rate 18 02/08/18 11:23 Blood Pressure 125/62 02/08/18 11:23 O2 Sat by Pulse Oximetry (%) 98 02/08/18 09:00 Constitutional: Yes: No Distress Eyes: Yes: WNL HENT: Yes: WNL Neck: Yes: WNL Cardiovascular: Yes: Regular Rate and Rhythm Respiratory: Yes: WNL Gastrointestinal: Yes: WNL ...Rectal Exam: Yes: Deferred Genitourinary: Yes: WNL Breast(s): Yes: WNL Musculoskeletal: Yes: Back Pain Extremities: Yes: WNL Edema: Yes Edema: LLE: 2+, RLE: 2+ Peripheral Pulses WNL: Yes Integumentary: Yes: Other (ezematous rash on off fungal groin and lower buttuck) Neurological: Yes: Other (sleepy sec atarax) ...Motor Strength: WNL Psychiatric: Yes: WNL Labs: CBC, BMP 02/08/18 06:45 02/08/18 06:45 INR, PTT INR 1.12 (0.83-1.09) H 02/03/18 01:17 Problem List - Problems (1) Atrial fibrillation Code(s): I48.91 - UNSPECIFIED ATRIAL FIBRILLATION Qualifiers: Atrial fibrillation type: permanent Qualified Code(s): I48.2 - Chronic atrial fibrillation Assessment/Plan gental diurisis npo agter mid nizoral cream tramadol po chk labs in am cleared for liver bx
[2018-02-08] MEDS ORDERED: FUROSEMIDE 100 MG/10 ML INJECTABLE VIAL IVPB ONE (13:35)
[2018-02-08] MEDS: NYSTATIN POWDER 100,000 UNITS/GM - 15 GM TOPICAL POWDER TP SCH (13:36)
[2018-02-08] MEDS: traMADol HCL 50 MG TABLET PO PRN (13:38)
--- NOTE | 2018-02-08 14:45 | PN ---
Progress Note, Physician Chief Complaint: lung, pacreatic, liver masses History of Present Illness: Doing well. No complaints except for chronic pruritis - Current Medication List Current Medications: Active Medications Acetaminophen (Tylenol -) 650 mg PO Q6H PRN PRN Reason: PAIN 6-10 Last Admin: 02/06/18 22:05 Dose: 650 mg Allopurinol (Zyloprim -) 100 mg PO DAILY [facility] Last Admin: 02/08/18 10:58 Dose: 100 mg Atorvastatin Calcium (Lipitor -) 10 mg PO HS [facility] Last Admin: 02/07/18 22:44 Dose: 10 mg Hydralazine HCl (Apresoline -) 50 mg PO BID [facility] Last Admin: 02/08/18 10:57 Dose: 50 mg Hydrocortisone (Anusol 2.5% Hc Cream -) 1 applic TP BID [facility] Last Admin: 02/08/18 10:57 Dose: 1 applic Hydroxyzine HCl (Atarax -) 25 mg PO Q8H PRN PRN Reason: ITCHING Last Admin: 02/08/18 11:16 Dose: 25 mg Piperacillin Sod/Tazobactam (Sod 2.25 gm/ Dextrose) 50 mls @ 100 mls/hr IVPB Q8H [facility]; Protocol Last Admin: 02/08/18 13:37 Dose: 100 mls/hr Ketoconazole (Nizoral 2% Cream -) 1 applic TP DAILY [facility] Metoprolol Tartrate (Lopressor -) 25 mg PO BID [facility] Last Admin: 02/08/18 10:58 Dose: 25 mg Mupirocin (Bactroban 2% Ointment -) 1 applic TP BID [facility] Last Admin: 02/08/18 10:58 Dose: 1 applic Nystatin (Nystop Powder -) 1 applic TP DAILY [facility] Last Admin: 02/08/18 13:36 Dose: 1 applic Pantoprazole Sodium (Protonix Iv) 40 mg IVPUSH DAILY [facility] Last Admin: 02/08/18 13:34 Dose: 40 mg Tramadol HCl (Ultram -) 50 mg PO Q4H PRN PRN Reason: PAIN LEVEL 6-10 Last Admin: 02/08/18 13:38 Dose: 50 mg Tramadol HCl (Ultram -) 50 mg PO BID [facility] Stop: 02/14/18 23:59 Triamcinolone Acetonide (Aristocort 0.1% Ointment -) 1 applic TP BID [facility] Last Admin: 02/08/18 10:58 Dose: 1 applic - Objective Vital Signs: Vital Signs Temperature 98.2 F 02/08/18 11:23 Pulse Rate 61 02/08/18 11:23 Respiratory Rate 18 02/08/18 11:23 Blood Pressure 125/62 02/08/18 11:23 O2 Sat by Pulse Oximetry (%) 98 02/08/18 09:00 Constitutional: Yes: Well Nourished, No Distress, Calm Eyes: No: Sclera Icterus Neck: Yes: Supple Cardiovascular: Yes: Regular Rate and Rhythm Respiratory: Yes: CTA Bilaterally Gastrointestinal: Yes: Soft. No: Distention, Tenderness Edema: No Neurological: Yes: Alert Labs: CBC, BMP 02/08/18 06:45 02/08/18 06:45 INR, PTT INR 1.12 (0.83-1.09) H 02/03/18 01:17 Assessment/Plan lung, pancreatic, liver masses planned for ct guided liver biopsy tomorrow eliquis/asa on hold pt wants to follow up with Dr. Ward after discharge
[2018-02-08] MEDS: ACETAMINOPHEN 325 MG TABLET (FP) PO PRN (20:01)
[2018-02-08] MEDS: ATORVASTATIN CA 10 MG TABLET (FP) PO SCH (21:08)
[2018-02-08] MEDS ORDERED: traMADol HCL 50 MG TABLET PO PRN (22:00)
[2018-02-09] MEDS ORDERED: DEXTROSE 5%-WATER - 50 ML IVPB ONE ×3 (05:15→20:48)
[2018-02-09] MEDS ORDERED: PIPERACILLIN/TAZOBACTAM 2.25 GM VIAL IVPB ONE ×3 (05:15→20:48)
[2018-02-09] MEDS: PIPERACILLIN/TAZOB 2.25 GM 2.25 GM in DEXTROSE 5%-WATER - 50 ML IVPB SCH ×3 (05:46→21:23)
[2018-02-09 07:30] LABS: BASO % 0.3 % (0-2.0); EOS % 6.8 % (0-4.5); HEMATOCRIT 30.7 % (35.4-49); MCH 27.6 pg (25.7-33.7); MCHC 32.5 g/dl (32.0-35.9); MEAN CELL VOLUME 85.1 fl (80-96); MEAN PLT VOLUME 8.6 fl (7.5-11.1); MONO % 13.2 % (3.8-10.2); NEUT % 71.7 % (42.8-82.8); PLATELET COUNT 273 K/MM3 (134-434); RBC 3.61 M/mm3 (4.00-5.60); RDW 19.4 % (11.9-15.9)
[2018-02-09 08:18] LABS: ANION GAP 8 MMOL/L (8-16); CALCIUM 8.4 mg/dL (8.5-10.1); CHLORIDE 106 mmol/L (98-107); CO2 20 mmol/L (21-32); CREATININE 4.3 mg/dL (0.55-1.3); GLUCOSE,RANDOM 90 mg/dL (74-106); POTASSIUM 3.7 mmol/L (3.5-5.1); SODIUM 133 mmol/L (136-145)
[2018-02-09 08:21] LABS: BLOOD UREA NITROGEN 106 mg/dL (7-18)
[2018-02-09 10:21] LABS: INR 1.07 (0.83-1.09); PROTHROMBIN TIME (PATIENT) 12.6 SEC (9.7-13.0)
--- NOTE | 2018-02-09 10:28 | EKG ---
Test Reason : Blood Pressure : / mmHG Vent. Rate : 064 BPM Atrial Rate : 202 BPM P-R Int : 000 ms QRS Dur : 184 ms QT Int : 504 ms P-R-T Axes : 000 178 058 degrees QTc Int : 519 ms Ventricular-paced rhythm WITH FREQUENT PREMATURE VENTRICULAR COMPLEXES UNDERLYING ATRIAL FIBRILLATION VS FLUTTER ABNORMAL ECG WHEN COMPARED WITH ECG OF 02-FEB-2018 22:31, VENT. RATE HAS DECREASED BY 11 BPM Confirmed by FOUZIA BRIGHT, ARLEEN ([id number]) on 02/09/2018 10:28:17 AM Referred By: Nay SPAULDING Confirmed By:ARLEEN FRAGOSO MD
--- NOTE | 2018-02-09 13:17 | PN ---
Progress Note, Physician History of Present Illness: Pt seen and examined at bedside. He had the liver biopsy today. He denies shortness of breath. - Current Medication List Current Medications: Active Medications Acetaminophen (Tylenol -) 650 mg PO Q6H PRN PRN Reason: PAIN 6-10 Last Admin: 02/08/18 20:01 Dose: 650 mg Allopurinol (Zyloprim -) 100 mg PO DAILY [facility] Last Admin: 02/08/18 10:58 Dose: 100 mg Atorvastatin Calcium (Lipitor -) 10 mg PO HS [facility] Last Admin: 02/08/18 21:08 Dose: 10 mg Hydralazine HCl (Apresoline -) 50 mg PO BID [facility] Last Admin: 02/08/18 21:08 Dose: 50 mg Hydrocortisone (Anusol 2.5% Hc Cream -) 1 applic TP BID [facility] Last Admin: 02/08/18 21:58 Dose: 1 applic Hydroxyzine HCl (Atarax -) 25 mg PO Q8H PRN PRN Reason: ITCHING Last Admin: 02/08/18 20:01 Dose: 25 mg Piperacillin Sod/Tazobactam (Sod 2.25 gm/ Dextrose) 50 mls @ 100 mls/hr IVPB Q8H [facility]; Protocol Last Admin: 02/09/18 05:46 Dose: 100 mls/hr Ketoconazole (Nizoral 2% Cream -) 1 applic TP DAILY [facility] Metoprolol Tartrate (Lopressor -) 25 mg PO BID [facility] Last Admin: 02/08/18 21:08 Dose: 25 mg Mupirocin (Bactroban 2% Ointment -) 1 applic TP BID [facility] Last Admin: 02/08/18 21:58 Dose: 1 applic Nystatin (Nystop Powder -) 1 applic TP DAILY [facility] Last Admin: 02/08/18 13:36 Dose: 1 applic Pantoprazole Sodium (Protonix Iv) 40 mg IVPUSH DAILY [facility] Last Admin: 02/08/18 13:34 Dose: 40 mg Tramadol HCl (Ultram -) 50 mg PO BID PRN PRN Reason: PAIN LEVEL 7 - 10 Triamcinolone Acetonide (Aristocort 0.1% Ointment -) 1 applic TP BID [facility] Last Admin: 02/08/18 21:58 Dose: 1 applic - Objective Vital Signs: Vital Signs Temperature 97.5 F L 02/09/18 13:09 Pulse Rate 67 02/09/18 13:09 Respiratory Rate 20 02/09/18 13:09 Blood Pressure 149/68 02/09/18 13:09 O2 Sat by Pulse Oximetry (%) 95 02/09/18 13:09 Constitutional: Yes: Calm Eyes: Yes: Conjunctiva Clear HENT: Yes: Atraumatic Cardiovascular: Yes: S1, S2 Respiratory: Yes: CTA Bilaterally Gastrointestinal: Yes: Normal Bowel Sounds, Soft Genitourinary: Yes: WNL Musculoskeletal: Yes: WNL Edema: Yes Edema: LLE: Trace, RLE: Trace Neurological: Yes: Oriented Psychiatric: Yes: Oriented Labs: CBC, BMP 02/09/18 06:00 02/09/18 06:00 INR, PTT INR 1.07 (0.83-1.09) 02/09/18 10:00 Problem List - Problems (1) Bone lesion Code(s): M89.9 - DISORDER OF BONE, UNSPECIFIED (2) CHF exacerbation Code(s): I50.9 - HEART FAILURE, UNSPECIFIED Qualifiers: Heart failure type: unspecified Qualified Code(s): I50.9 - Heart failure, unspecified (3) CKD (chronic kidney disease) stage 4, GFR 15-29 ml/min Code(s): N18.4 - CHRONIC KIDNEY DISEASE, STAGE 4 (SEVERE) (4) Chest pain Code(s): R07.9 - CHEST PAIN, UNSPECIFIED Qualifiers: Chest pain type: chest pain on breathing Qualified Code(s): R07.1 - Chest pain on breathing; R07.81 - Pleurodynia (5) Liver mass Code(s): R16.0 - HEPATOMEGALY, NOT ELSEWHERE CLASSIFIED (6) Lung mass Code(s): R91.8 - OTHER NONSPECIFIC ABNORMAL FINDING OF LUNG FIELD (7) PNA (pneumonia) Code(s): J18.9 - PNEUMONIA, UNSPECIFIED ORGANISM Qualifiers: Pneumonia type: due to unspecified organism Laterality: unspecified laterality Lung location: unspecified part of lung Qualified Code(s): J18.9 - Pneumonia, unspecified organism Assessment/Plan Current Medications Generic Name Dose Route Start Last Admin Trade Name Freq PRN Reason Stop Dose Admin Acetaminophen 650 mg 02/03/18 16:52 02/08/18 20:01 Tylenol - PO 650 mg Q6H PRN Administration PAIN 6-10 Allopurinol 100 mg 02/03/18 10:00 02/08/18 10:58 Zyloprim - PO 100 mg DAILY [facility] Administration Atorvastatin Calcium 10 mg 02/03/18 22:00 02/08/18 21:08 Lipitor - PO 10 mg HS [facility] Administration Hydralazine HCl 50 mg 02/03/18 10:00 02/08/18 21:08 Apresoline - PO 50 mg BID [facility] Administration Hydrocortisone 1 applic 02/05/18 02:15 02/08/18 21:58 Anusol 2.5% Hc Cream - TP 1 applic BID [facility] Administration Hydroxyzine HCl 25 mg 02/05/18 02:13 02/08/18 20:01 Atarax - PO 25 mg Q8H PRN Administration ITCHING Piperacillin Sod/Tazobactam 50 mls @ 100 mls/hr 02/03/18 14:00 02/09/18 05:46 Sod 2.25 gm/ Dextrose IVPB 100 mls/hr Q8H [facility] Administration Protocol Ketoconazole 1 applic 02/09/18 10:00 Nizoral 2% Cream - TP DAILY [facility] Metoprolol Tartrate 25 mg 02/03/18 10:00 02/08/18 21:08 Lopressor - PO 25 mg BID [facility] Administration Mupirocin 1 applic 02/05/18 22:00 02/08/18 21:58 Bactroban 2% Ointment - TP 1 applic BID [facility] Administration Nystatin 1 applic 02/05/18 19:00 02/08/18 13:36 Nystop Powder - TP 1 applic DAILY [facility] Administration Pantoprazole Sodium 40 mg 02/03/18 10:00 02/08/18 13:34 Protonix Iv IVPUSH 40 mg DAILY [facility] Administration Tramadol HCl 50 mg 02/08/18 22:00 Ultram - PO BID PRN PAIN LEVEL 7 - 10 Triamcinolone Acetonide 1 applic 02/05/18 22:00 02/08/18 21:58 Aristocort 0.1% Ointment - TP 1 applic BID [facility] Administration Laboratory Tests 02/06/18 16:00 Urine Protein Negative Urine Blood Negative Impression 1. CKD 2. CARROL 3. CAD 4. s/p aicd 5. liver lesions 6. pancreatic lesions 7. lung mass 8. pna 9. a-fib 10. HTN 11. AAA 12. HLD Plan - renal function is starting to improve - repeat labs in am - will assess for lasix daily - renal ultrasound reviewed - discussed with medical team - discussed with family Dr Perez
[2018-02-09] MEDS: METOPROLOL TARTRATE 25 MG TABLET (FP) PO SCH ×2 (13:35→21:23)
[2018-02-09] MEDS: hydrALAZINE HCL 25 MG TABLET (FP) PO SCH ×2 (13:36→21:23)
[2018-02-09] MEDS: PANTOPRAZOLE SODIUM 40 MG VIAL IVPUSH SCH (13:36)
[2018-02-09] MEDS: ALLOPURINOL 100 MG TABLET (FP) PO SCH (13:36)
[2018-02-09] MEDS: TRIAMCINOLONE ACET 0.1% OINT 15 GM TUBE TP SCH ×2 (13:37→21:27)
[2018-02-09] MEDS: MUPIROCIN 2% TOPICAL OINTMENT 22 GM TUBE TP SCH ×2 (13:38→21:24)
[2018-02-09] MEDS: hydrOXYzine HCL 25 MG TABLET (FP) PO PRN ×2 (13:39→21:29)
--- NOTE | 2018-02-09 13:58 | PN ---
Progress Note (short form) - Note Progress Note: S/P Liver biopsy by IR. No CP, SOB, or abdominal pain. Intake & Output 02/06/18 02/07/18 02/08/18 02/09/18 23:59 23:59 23:59 23:59 Intake Total 50 1200 680 50 Output Total 225 Balance -175 1200 680 50 Last Vital Signs Temp Pulse Resp BP Pulse Ox 97.5 F L 67 20 149/68 95 02/09/18 13:09 02/09/18 13:09 02/09/18 13:09 02/09/18 13:09 02/09/18 13:09 Active Medications Acetaminophen (Tylenol -) 650 mg PO Q6H PRN PRN Reason: PAIN 6-10 Last Admin: 02/08/18 20:01 Dose: 650 mg Allopurinol (Zyloprim -) 100 mg PO DAILY [facility] Last Admin: 02/09/18 13:36 Dose: 100 mg Atorvastatin Calcium (Lipitor -) 10 mg PO HS [facility] Last Admin: 02/08/18 21:08 Dose: 10 mg Hydralazine HCl (Apresoline -) 50 mg PO BID [facility] Last Admin: 02/09/18 13:36 Dose: 50 mg Hydrocortisone (Anusol 2.5% Hc Cream -) 1 applic TP BID [facility] Last Admin: 02/08/18 21:58 Dose: 1 applic Hydroxyzine HCl (Atarax -) 25 mg PO Q8H PRN PRN Reason: ITCHING Last Admin: 02/09/18 13:39 Dose: 25 mg Piperacillin Sod/Tazobactam (Sod 2.25 gm/ Dextrose) 50 mls @ 100 mls/hr IVPB Q8H [facility]; Protocol Last Admin: 02/09/18 13:37 Dose: 100 mls/hr Ketoconazole (Nizoral 2% Cream -) 1 applic TP DAILY [facility] Metoprolol Tartrate (Lopressor -) 25 mg PO BID [facility] Last Admin: 02/09/18 13:35 Dose: 25 mg Mupirocin (Bactroban 2% Ointment -) 1 applic TP BID [facility] Last Admin: 02/09/18 13:38 Dose: 1 applic Nystatin (Nystop Powder -) 1 applic TP DAILY [facility] Last Admin: 02/08/18 13:36 Dose: 1 applic Pantoprazole Sodium (Protonix Iv) 40 mg IVPUSH DAILY [facility] Last Admin: 02/09/18 13:36 Dose: 40 mg Tramadol HCl (Ultram -) 50 mg PO BID PRN PRN Reason: PAIN LEVEL 7 - 10 Triamcinolone Acetonide (Aristocort 0.1% Ointment -) 1 applic TP BID [facility] Last Admin: 02/09/18 13:37 Dose: 1 applic Constitutional: Yes: NAD Eyes: Yes: WNL HENT: Yes: WNL Neck: Yes: WNL Cardiovascular: Yes: Pulse Irregular, S1, S2 Respiratory: Yes: few basilar Rhonchi / Rales Gastrointestinal: Yes: Normal Bowel Sounds, Soft Extremities: Yes: WNL Edema: No Labs: Laboratory Results - last 24 hr 02/09/18 02/09/18 02/09/18 06:00 06:00 10:00 WBC 9.0 RBC 3.61 L Hgb 10.0 L Hct 30.7 L MCV 85.1 MCH 27.6 MCHC 32.5 RDW 19.4 H Plt Count 273 MPV 8.6 Absolute Neuts (auto) 6.4 Neutrophils % 71.7 Lymphocytes % 8.0 D Monocytes % 13.2 H Eosinophils % 6.8 H Basophils % 0.3 Nucleated RBC % 0 PT with INR 12.60 INR 1.07 PTT (Actin FS) 25.0 L Sodium 133 L Potassium 3.7 Chloride 106 Carbon Dioxide 20 L Anion Gap 8 BUN 106 H* Creatinine 4.3 H Creat Clearance w eGFR 13.16 Random Glucose 90 Calcium 8.4 L Assessment/Plan Problem List - Problems (1) Lung mass Code(s): R91.8 - OTHER NONSPECIFIC ABNORMAL FINDING OF LUNG FIELD (2) PNA (pneumonia) Code(s): J18.9 - PNEUMONIA, UNSPECIFIED ORGANISM Qualifiers: Pneumonia type: due to unspecified organism Laterality: unspecified laterality Lung location: unspecified part of lung Qualified Code(s): J18.9 - Pneumonia, unspecified organism (3) Bone lesion Code(s): M89.9 - DISORDER OF BONE, UNSPECIFIED (4) CKD (chronic kidney disease) stage 4, GFR 15-29 ml/min Code(s): N18.4 - CHRONIC KIDNEY DISEASE, STAGE 4 (SEVERE) (5) Liver mass Code(s): R16.0 - HEPATOMEGALY, NOT ELSEWHERE CLASSIFIED (6) Atrial fibrillation Code(s): I48.91 - UNSPECIFIED ATRIAL FIBRILLATION Qualifiers: Atrial fibrillation type: permanent Qualified Code(s): I48.2 - Chronic atrial fibrillation (7) CAD (coronary artery disease) Code(s): I25.10 - ATHSCL HEART DISEASE OF [place] CORONARY ARTERY W/O ANG PCTRS (8) CHF (congestive heart failure) Code(s): I50.9 - HEART FAILURE, UNSPECIFIED (9) Hx of CABG Code(s): Z95.1 - PRESENCE OF AORTOCORONARY BYPASS GRAFT Assessment/Plan Lung Mass - r/o Metastatic Disease R/O Pneumonia CAD s/p CABG LV Diastolic Dysfunction Atrial Fibrillation CKD - antibiotics as per ID - Follow pathology - rate control - O2 as needed Dr Balbuena
--- NOTE | 2018-02-09 15:37 | PN ---
Progress Note, Physician History of Present Illness: tolerating diet s/p liver bx oob bm nl - Current Medication List Current Medications: Active Medications Acetaminophen (Tylenol -) 650 mg PO Q6H PRN PRN Reason: PAIN 6-10 Last Admin: 02/08/18 20:01 Dose: 650 mg Allopurinol (Zyloprim -) 100 mg PO DAILY [facility] Last Admin: 02/09/18 13:36 Dose: 100 mg Atorvastatin Calcium (Lipitor -) 10 mg PO HS [facility] Last Admin: 02/08/18 21:08 Dose: 10 mg Hydralazine HCl (Apresoline -) 50 mg PO BID [facility] Last Admin: 02/09/18 13:36 Dose: 50 mg Hydrocortisone (Anusol 2.5% Hc Cream -) 1 applic TP BID [facility] Last Admin: 02/08/18 21:58 Dose: 1 applic Hydroxyzine HCl (Atarax -) 25 mg PO Q8H PRN PRN Reason: ITCHING Last Admin: 02/09/18 13:39 Dose: 25 mg Piperacillin Sod/Tazobactam (Sod 2.25 gm/ Dextrose) 50 mls @ 100 mls/hr IVPB Q8H [facility]; Protocol Last Admin: 02/09/18 13:37 Dose: 100 mls/hr Ketoconazole (Nizoral 2% Cream -) 1 applic TP DAILY [facility] Metoprolol Tartrate (Lopressor -) 25 mg PO BID [facility] Last Admin: 02/09/18 13:35 Dose: 25 mg Mupirocin (Bactroban 2% Ointment -) 1 applic TP BID [facility] Last Admin: 02/09/18 13:38 Dose: 1 applic Nystatin (Nystop Powder -) 1 applic TP DAILY [facility] Last Admin: 02/08/18 13:36 Dose: 1 applic Pantoprazole Sodium (Protonix Iv) 40 mg IVPUSH DAILY [facility] Last Admin: 02/09/18 13:36 Dose: 40 mg Tramadol HCl (Ultram -) 50 mg PO BID PRN PRN Reason: PAIN LEVEL 7 - 10 Triamcinolone Acetonide (Aristocort 0.1% Ointment -) 1 applic TP BID [facility] Last Admin: 02/09/18 13:37 Dose: 1 applic - Objective Vital Signs: Vital Signs Temperature 97.5 F L 02/09/18 13:09 Pulse Rate 67 02/09/18 13:09 Respiratory Rate 20 02/09/18 13:09 Blood Pressure 149/68 02/09/18 13:09 O2 Sat by Pulse Oximetry (%) 95 02/09/18 13:09 Constitutional: Yes: Well Nourished Eyes: Yes: WNL HENT: Yes: WNL Neck: Yes: WNL Cardiovascular: Yes: WNL Gastrointestinal: Yes: WNL ...Rectal Exam: Yes: Deferred Genitourinary: Yes: WNL Breast(s): Yes: WNL Musculoskeletal: Yes: WNL Extremities: Yes: WNL Edema: Yes Edema: LLE: 2+, RLE: 2+ Peripheral Pulses WNL: Yes Integumentary: Yes: WNL, Tenting Wound/Incision: Yes: Excoriated Neurological: Yes: WNL ...Motor Strength: WNL Psychiatric: Yes: Alert Labs: CBC, BMP 02/09/18 06:00 02/09/18 06:00 INR, PTT INR 1.07 (0.83-1.09) 02/09/18 10:00 Problem List - Problems (1) Atrial fibrillation Code(s): I48.91 - UNSPECIFIED ATRIAL FIBRILLATION Qualifiers: Atrial fibrillation type: permanent Qualified Code(s): I48.2 - Chronic atrial fibrillation Assessment/Plan gental dierisi??? chest xray cont all tx as is
[2018-02-09] MEDS: HYDROCORTISONE 2.5% TOPICAL CREAM 30 GM TUBE TP SCH ×2 (17:39→21:25)
[2018-02-09] MEDS: NYSTATIN POWDER 100,000 UNITS/GM - 15 GM TOPICAL POWDER TP SCH (17:39)
[2018-02-09] MEDS: KETOCONAZOLE 2% CREAM - 60GM TUBE TP SCH (17:39)
[2018-02-09] MEDS ORDERED: PT OWN MED DRAWER 7, Y5N ONE (20:47)
[2018-02-09] MEDS: ATORVASTATIN CA 10 MG TABLET (FP) PO SCH (21:23)
[2018-02-10] MEDS ORDERED: PIPERACILLIN/TAZOBACTAM 2.25 GM VIAL IVPB ONE ×3 (06:32→21:07)
[2018-02-10] MEDS ORDERED: DEXTROSE 5%-WATER - 50 ML IVPB ONE ×3 (06:32→21:07)
[2018-02-10] MEDS: PIPERACILLIN/TAZOB 2.25 GM 2.25 GM in DEXTROSE 5%-WATER - 50 ML IVPB SCH ×3 (06:33→21:23)
[2018-02-10 06:56] LABS: BASO % 0.3 % (0-2.0); EOS % 6.1 % (0-4.5); HEMATOCRIT 31.6 % (35.4-49); HEMOGLOBIN 10.4 GM/dL (11.7-16.9); LYMPH % 10.5 % (8-40); MCH 28.1 pg (25.7-33.7); MCHC 32.9 g/dl (32.0-35.9); MEAN CELL VOLUME 85.4 fl (80-96); MEAN PLT VOLUME 8.6 fl (7.5-11.1); MONO % 15.2 % (3.8-10.2); NEUT % 67.9 % (42.8-82.8); PLATELET COUNT 287 K/MM3 (134-434); RBC 3.71 M/mm3 (4.00-5.60); RDW 19.3 % (11.9-15.9); WHITE BLOOD COUNT 10.4 K/mm3 (4.0-10.0)
[2018-02-10 07:06] LABS: ALBUMIN 2.2 g/dl (3.4-5.0); ALK PHOS 82 U/L (45-117); ANION GAP 11 MMOL/L (8-16); BILIRUBIN,TOTAL 0.4 mg/dL (0.2-1); BLOOD UREA NITROGEN 90 mg/dL (7-18); CHLORIDE 105 mmol/L (98-107); CO2 21 mmol/L (21-32); CREATININE 3.8 mg/dL (0.55-1.3); GLUCOSE,RANDOM 86 mg/dL (74-106); POTASSIUM 3.7 mmol/L (3.5-5.1); SGOT/AST 35 U/L (15-37); SGPT/ALT 44 U/L (13-61); SODIUM 136 mmol/L (136-145); TOT PROT 5.5 g/dl (6.4-8.2)
[2018-02-10] MEDS: hydrOXYzine HCL 25 MG TABLET (FP) PO PRN ×2 (10:31→19:56)
[2018-02-10] MEDS: METOPROLOL TARTRATE 25 MG TABLET (FP) PO SCH ×2 (10:32→21:23)
[2018-02-10] MEDS: ALLOPURINOL 100 MG TABLET (FP) PO SCH (10:32)
[2018-02-10] MEDS: TRIAMCINOLONE ACET 0.1% OINT 15 GM TUBE TP SCH ×2 (10:32→21:25)
[2018-02-10] MEDS: HYDROCORTISONE 2.5% TOPICAL CREAM 30 GM TUBE TP SCH ×2 (10:32→21:26)
[2018-02-10] MEDS: hydrALAZINE HCL 25 MG TABLET (FP) PO SCH ×2 (10:32→21:22)
[2018-02-10] MEDS: KETOCONAZOLE 2% CREAM - 60GM TUBE TP SCH (10:33)
[2018-02-10] MEDS: NYSTATIN POWDER 100,000 UNITS/GM - 15 GM TOPICAL POWDER TP SCH (10:33)
[2018-02-10] MEDS: PANTOPRAZOLE SODIUM 40 MG VIAL IVPUSH SCH (10:33)
[2018-02-10] MEDS: MUPIROCIN 2% TOPICAL OINTMENT 22 GM TUBE TP SCH ×2 (10:46→21:25)
--- NOTE | 2018-02-10 10:49 | PN ---
Progress Note, Physician History of Present Illness: pulmonary alert,oob-chair,-cp,-sob. - Current Medication List Current Medications: Active Medications Acetaminophen (Tylenol -) 650 mg PO Q6H PRN PRN Reason: PAIN 6-10 Last Admin: 02/08/18 20:01 Dose: 650 mg Allopurinol (Zyloprim -) 100 mg PO DAILY [facility] Last Admin: 02/10/18 10:32 Dose: 100 mg Atorvastatin Calcium (Lipitor -) 10 mg PO HS [facility] Last Admin: 02/09/18 21:23 Dose: 10 mg Hydralazine HCl (Apresoline -) 50 mg PO BID [facility] Last Admin: 02/10/18 10:32 Dose: 50 mg Hydrocortisone (Anusol 2.5% Hc Cream -) 1 applic TP BID [facility] Last Admin: 02/10/18 10:32 Dose: 1 applic Hydroxyzine HCl (Atarax -) 25 mg PO Q8H PRN PRN Reason: ITCHING Last Admin: 02/10/18 10:31 Dose: 25 mg Piperacillin Sod/Tazobactam (Sod 2.25 gm/ Dextrose) 50 mls @ 100 mls/hr IVPB Q8H [facility]; Protocol Last Admin: 02/10/18 06:33 Dose: 100 mls/hr Ketoconazole (Nizoral 2% Cream -) 1 applic TP DAILY [facility] Last Admin: 02/10/18 10:33 Dose: 1 appful Metoprolol Tartrate (Lopressor -) 25 mg PO BID [facility] Last Admin: 02/10/18 10:32 Dose: 25 mg Mupirocin (Bactroban 2% Ointment -) 1 applic TP BID [facility] Last Admin: 02/09/18 21:24 Dose: 1 applic Nystatin (Nystop Powder -) 1 applic TP DAILY [facility] Last Admin: 02/10/18 10:33 Dose: 1 applic Pantoprazole Sodium (Protonix Iv) 40 mg IVPUSH DAILY [facility] Last Admin: 02/10/18 10:33 Dose: 40 mg Tramadol HCl (Ultram -) 50 mg PO BID PRN PRN Reason: PAIN LEVEL 7 - 10 Triamcinolone Acetonide (Aristocort 0.1% Ointment -) 1 applic TP BID [facility] Last Admin: 02/10/18 10:32 Dose: 1 applic - Objective Vital Signs: Vital Signs Temperature 98.2 F 02/10/18 06:00 Pulse Rate 68 02/10/18 06:00 Respiratory Rate 18 02/10/18 06:00 Blood Pressure 128/59 L 02/10/18 06:00 O2 Sat by Pulse Oximetry (%) 96 02/09/18 21:00 Constitutional: Yes: Well Nourished, Calm Eyes: Yes: WNL HENT: Yes: WNL Neck: Yes: WNL Cardiovascular: Yes: Pulse Irregular, S1, S2 Respiratory: Yes: Rales (crackles r 1/3 up) Gastrointestinal: Yes: Normal Bowel Sounds, Soft Extremities: Yes: WNL Edema: No Labs: CBC, BMP 02/10/18 06:00 02/10/18 06:00 INR, PTT INR 1.07 (0.83-1.09) 02/09/18 10:00 Assessment/Plan Problem List - Problems (1) Lung mass Code(s): R91.8 - OTHER NONSPECIFIC ABNORMAL FINDING OF LUNG FIELD (2) PNA (pneumonia) Code(s): J18.9 - PNEUMONIA, UNSPECIFIED ORGANISM Qualifiers: Pneumonia type: due to unspecified organism Laterality: unspecified laterality Lung location: unspecified part of lung Qualified Code(s): J18.9 - Pneumonia, unspecified organism (3) Bone lesion Code(s): M89.9 - DISORDER OF BONE, UNSPECIFIED (4) CKD (chronic kidney disease) stage 4, GFR 15-29 ml/min Code(s): N18.4 - CHRONIC KIDNEY DISEASE, STAGE 4 (SEVERE) (5) Liver mass Code(s): R16.0 - HEPATOMEGALY, NOT ELSEWHERE CLASSIFIED (6) Atrial fibrillation Code(s): I48.91 - UNSPECIFIED ATRIAL FIBRILLATION Qualifiers: Atrial fibrillation type: permanent Qualified Code(s): I48.2 - Chronic atrial fibrillation (7) CAD (coronary artery disease) Code(s): I25.10 - ATHSCL HEART DISEASE OF [place] CORONARY ARTERY W/O ANG PCTRS (8) CHF (congestive heart failure) Code(s): I50.9 - HEART FAILURE, UNSPECIFIED (9) Hx of CABG Code(s): Z95.1 - PRESENCE OF AORTOCORONARY BYPASS GRAFT Assessment/Plan Lung Mass - r/o Metastatic Disease r/o Pneumonia CAD s/p CABG LV Diastolic Dysfunction Atrial Fibrillation CKD - antibiotics as per ID - ac - rate control - O2 as needed - check path DR DE LEON
--- NOTE | 2018-02-10 10:54 | PN ---
Progress Note, Physician Chief Complaint: no pain now vss nl bm tolerating diet - Current Medication List Current Medications: Active Medications Acetaminophen (Tylenol -) 650 mg PO Q6H PRN PRN Reason: PAIN 6-10 Last Admin: 02/08/18 20:01 Dose: 650 mg Allopurinol (Zyloprim -) 100 mg PO DAILY [facility] Last Admin: 02/10/18 10:32 Dose: 100 mg Atorvastatin Calcium (Lipitor -) 10 mg PO HS [facility] Last Admin: 02/09/18 21:23 Dose: 10 mg Hydralazine HCl (Apresoline -) 50 mg PO BID [facility] Last Admin: 02/10/18 10:32 Dose: 50 mg Hydrocortisone (Anusol 2.5% Hc Cream -) 1 applic TP BID [facility] Last Admin: 02/10/18 10:32 Dose: 1 applic Hydroxyzine HCl (Atarax -) 25 mg PO Q8H PRN PRN Reason: ITCHING Last Admin: 02/10/18 10:31 Dose: 25 mg Piperacillin Sod/Tazobactam (Sod 2.25 gm/ Dextrose) 50 mls @ 100 mls/hr IVPB Q8H [facility]; Protocol Last Admin: 02/10/18 06:33 Dose: 100 mls/hr Ketoconazole (Nizoral 2% Cream -) 1 applic TP DAILY [facility] Last Admin: 02/10/18 10:33 Dose: 1 appful Metoprolol Tartrate (Lopressor -) 25 mg PO BID [facility] Last Admin: 02/10/18 10:32 Dose: 25 mg Mupirocin (Bactroban 2% Ointment -) 1 applic TP BID [facility] Last Admin: 02/10/18 10:46 Dose: 1 applic Nystatin (Nystop Powder -) 1 applic TP DAILY [facility] Last Admin: 02/10/18 10:33 Dose: 1 applic Pantoprazole Sodium (Protonix Iv) 40 mg IVPUSH DAILY [facility] Last Admin: 02/10/18 10:33 Dose: 40 mg Tramadol HCl (Ultram -) 50 mg PO BID PRN PRN Reason: PAIN LEVEL 7 - 10 Triamcinolone Acetonide (Aristocort 0.1% Ointment -) 1 applic TP BID [facility] Last Admin: 02/10/18 10:32 Dose: 1 applic - Objective Vital Signs: Vital Signs Temperature 98.2 F 02/10/18 06:00 Pulse Rate 68 02/10/18 06:00 Respiratory Rate 18 02/10/18 06:00 Blood Pressure 128/59 L 02/10/18 06:00 O2 Sat by Pulse Oximetry (%) 96 02/09/18 21:00 Constitutional: Yes: Well Nourished Eyes: Yes: WNL HENT: Yes: WNL Neck: Yes: WNL Cardiovascular: Yes: WNL Respiratory: Yes: WNL Gastrointestinal: Yes: WNL ...Rectal Exam: Yes: Deferred Genitourinary: Yes: WNL Breast(s): Yes: WNL Edema: Yes Edema: LLE: 1+, RLE: 1+ Peripheral Pulses WNL: Yes Wound/Incision: Yes: Clean/Dry Neurological: Yes: WNL ...Motor Strength: WNL Psychiatric: Yes: WNL Labs: CBC, BMP 02/10/18 06:00 02/10/18 06:00 INR, PTT INR 1.07 (0.83-1.09) 02/09/18 10:00 Problem List - Problems (1) Atrial fibrillation Code(s): I48.91 - UNSPECIFIED ATRIAL FIBRILLATION Qualifiers: Atrial fibrillation type: permanent Qualified Code(s): I48.2 - Chronic atrial fibrillation Assessment/Plan heparin sq eliqis on ?d/c? thersday renal numbers better
[2018-02-10] MEDS ORDERED: ACETAMINOPHEN 325 MG TABLET (FP) PO PRN (10:55)
[2018-02-10] MEDS ORDERED: FUROSEMIDE 40 MG TABLET (FP) PO ONE (13:09)
--- NOTE | 2018-02-10 13:09 | PN ---
Progress Note, Physician History of Present Illness: Pt seen and examined at bedside. He is out of bed to chair. He feels that his breathing is stable. - Current Medication List Current Medications: Active Medications Acetaminophen (Tylenol -) 650 mg PO Q6H PRN PRN Reason: PAIN 6-10 Last Admin: 02/08/18 20:01 Dose: 650 mg Acetaminophen (Tylenol -) 650 mg PO Q4H PRN; Protocol PRN Reason: MODERATE PAIN Stop: 02/13/18 10:54 Allopurinol (Zyloprim -) 100 mg PO DAILY [facility] Last Admin: 02/10/18 10:32 Dose: 100 mg Atorvastatin Calcium (Lipitor -) 10 mg PO HS [facility] Last Admin: 02/09/18 21:23 Dose: 10 mg Heparin Sodium (Porcine) (Heparin -) 5,000 unit SQ TID [facility] Hydralazine HCl (Apresoline -) 50 mg PO BID [facility] Last Admin: 02/10/18 10:32 Dose: 50 mg Hydrocortisone (Anusol 2.5% Hc Cream -) 1 applic TP BID [facility] Last Admin: 02/10/18 10:32 Dose: 1 applic Hydroxyzine HCl (Atarax -) 25 mg PO Q8H PRN PRN Reason: ITCHING Last Admin: 02/10/18 10:31 Dose: 25 mg Piperacillin Sod/Tazobactam (Sod 2.25 gm/ Dextrose) 50 mls @ 100 mls/hr IVPB Q8H [facility]; Protocol Last Admin: 02/10/18 06:33 Dose: 100 mls/hr Ketoconazole (Nizoral 2% Cream -) 1 applic TP DAILY [facility] Last Admin: 02/10/18 10:33 Dose: 1 appful Metoprolol Tartrate (Lopressor -) 25 mg PO BID [facility] Last Admin: 02/10/18 10:32 Dose: 25 mg Mupirocin (Bactroban 2% Ointment -) 1 applic TP BID [facility] Last Admin: 02/10/18 10:46 Dose: 1 applic Nystatin (Nystop Powder -) 1 applic TP DAILY [facility] Last Admin: 02/10/18 10:33 Dose: 1 applic Pantoprazole Sodium (Protonix Iv) 40 mg IVPUSH DAILY [facility] Last Admin: 02/10/18 10:33 Dose: 40 mg Tramadol HCl (Ultram -) 50 mg PO BID PRN PRN Reason: PAIN LEVEL 7 - 10 Triamcinolone Acetonide (Aristocort 0.1% Ointment -) 1 applic TP BID [facility] Last Admin: 02/10/18 10:32 Dose: 1 applic - Objective Vital Signs: Vital Signs Temperature 98.2 F 02/10/18 06:00 Pulse Rate 68 02/10/18 06:00 Respiratory Rate 18 02/10/18 06:00 Blood Pressure 128/59 L 02/10/18 06:00 O2 Sat by Pulse Oximetry (%) 97 02/10/18 09:00 Constitutional: Yes: Calm Eyes: Yes: Conjunctiva Clear HENT: Yes: Atraumatic Cardiovascular: Yes: S1, S2 Respiratory: Yes: CTA Bilaterally, On Nasal O2 Genitourinary: Yes: WNL Musculoskeletal: Yes: WNL Edema: Yes Neurological: Yes: Oriented Psychiatric: Yes: Oriented Labs: CBC, BMP 02/10/18 06:00 02/10/18 06:00 INR, PTT INR 1.07 (0.83-1.09) 02/09/18 10:00 Problem List - Problems (1) Bone lesion Code(s): M89.9 - DISORDER OF BONE, UNSPECIFIED (2) CHF exacerbation Code(s): I50.9 - HEART FAILURE, UNSPECIFIED Qualifiers: Heart failure type: unspecified Qualified Code(s): I50.9 - Heart failure, unspecified (3) CKD (chronic kidney disease) stage 4, GFR 15-29 ml/min Code(s): N18.4 - CHRONIC KIDNEY DISEASE, STAGE 4 (SEVERE) (4) Chest pain Code(s): R07.9 - CHEST PAIN, UNSPECIFIED Qualifiers: Chest pain type: chest pain on breathing Qualified Code(s): R07.1 - Chest pain on breathing; R07.81 - Pleurodynia (5) Liver mass Code(s): R16.0 - HEPATOMEGALY, NOT ELSEWHERE CLASSIFIED (6) Lung mass Code(s): R91.8 - OTHER NONSPECIFIC ABNORMAL FINDING OF LUNG FIELD (7) PNA (pneumonia) Code(s): J18.9 - PNEUMONIA, UNSPECIFIED ORGANISM Qualifiers: Pneumonia type: due to unspecified organism Laterality: unspecified laterality Lung location: unspecified part of lung Qualified Code(s): J18.9 - Pneumonia, unspecified organism Assessment/Plan Current Medications Generic Name Dose Route Start Last Admin Trade Name Freq PRN Reason Stop Dose Admin Acetaminophen 650 mg 02/03/18 16:52 02/08/18 20:01 Tylenol - PO 650 mg Q6H PRN Administration PAIN 6-10 Acetaminophen 650 mg 02/10/18 10:55 Tylenol - PO 02/13/18 10:54 Q4H PRN MODERATE PAIN Protocol Allopurinol 100 mg 02/03/18 10:00 02/10/18 10:32 Zyloprim - PO 100 mg DAILY [facility] Administration Atorvastatin Calcium 10 mg 02/03/18 22:00 02/09/18 21:23 Lipitor - PO 10 mg HS [facility] Administration Heparin Sodium (Porcine) 5,000 unit 02/10/18 14:00 Heparin - SQ TID [facility] Hydralazine HCl 50 mg 02/03/18 10:00 02/10/18 10:32 Apresoline - PO 50 mg BID [facility] Administration Hydrocortisone 1 applic 02/05/18 02:15 02/10/18 10:32 Anusol 2.5% Hc Cream - TP 1 applic BID [facility] Administration Hydroxyzine HCl 25 mg 02/05/18 02:13 02/10/18 10:31 Atarax - PO 25 mg Q8H PRN Administration ITCHING Piperacillin Sod/Tazobactam 50 mls @ 100 mls/hr 02/03/18 14:00 02/10/18 06:33 Sod 2.25 gm/ Dextrose IVPB 100 mls/hr Q8H [facility] Administration Protocol Ketoconazole 1 applic 02/09/18 10:00 02/10/18 10:33 Nizoral 2% Cream - TP 1 appful DAILY [facility] Administration Metoprolol Tartrate 25 mg 02/03/18 10:00 02/10/18 10:32 Lopressor - PO 25 mg BID [facility] Administration Mupirocin 1 applic 02/05/18 22:00 02/10/18 10:46 Bactroban 2% Ointment - TP 1 applic BID [facility] Administration Nystatin 1 applic 02/05/18 19:00 02/10/18 10:33 Nystop Powder - TP 1 applic DAILY [facility] Administration Pantoprazole Sodium 40 mg 02/03/18 10:00 02/10/18 10:33 Protonix Iv IVPUSH 40 mg DAILY [facility] Administration Tramadol HCl 50 mg 02/08/18 22:00 Ultram - PO BID PRN PAIN LEVEL 7 - 10 Triamcinolone Acetonide 1 applic 02/05/18 22:00 02/10/18 10:32 Aristocort 0.1% Ointment - TP 1 applic BID [facility] Administration Impression 1. CKD 2. CARROL 3. CAD 4. s/p aicd 5. liver lesions 6. pancreatic lesions 7. lung mass 8. pna 9. a-fib 10. HTN 11. AAA 12. HLD Plan - renal function is improving - will give a dose of lasix - repeat labs in am - will follow - discussed with family Dr Perez
[2018-02-10] MEDS: HEPARIN NA (PORCINE) 5,000 UNITS/ML 1ML VIAL SQ SCH ×2 (14:19→21:23)
--- NOTE | 2018-02-10 18:23 | PN ---
Physical Exam: SUBJECTIVE: Patient seen and examined at bedside. No overnight events. No new complaints. POD #1 s/p liver biopsy. Tolerated procedure well. Pain well controlled. Good appetite. Denies CP, BYNUM, SOB, abdominal pain, nausea or vomiting. OBJECTIVE: Vital Signs Period Temp Pulse Resp BP Sys/Hicks Pulse Ox Last 24 Hr 97.4 F-98.2 F 62-73 18-18 123-130/52-64 96-97 GENERAL:awake and alert. NAD EYES: PERRL, EOMI, sclera anicteric, conjunctiva clear. No ptosis. ENT: moist mucous membranes. LUNGS:Diminshed breath sounds at bases. Bibasilar crackles. HEART: irregular ABDOMEN: Soft, NTND, NABS, no guarding, no rebound, no hepatosplenomegaly, no masses. EXTREMITIES: 2+ pulses, warm, well-perfused, 1+ LE edema. NEUROLOGICAL: No focal def. Normal speech, gait not observed. PSYCH: Normal mood, normal affect. Laboratory Results - last 24 hr 02/10/18 02/10/18 06:00 06:00 WBC 10.4 H RBC 3.71 L Hgb 10.4 L Hct 31.6 L MCV 85.4 MCH 28.1 MCHC 32.9 RDW 19.3 H Plt Count 287 MPV 8.6 Absolute Neuts (auto) 7.1 Neutrophils % 67.9 Lymphocytes % 10.5 D Monocytes % 15.2 H Eosinophils % 6.1 H Basophils % 0.3 Nucleated RBC % 0 Sodium 136 Potassium 3.7 Chloride 105 Carbon Dioxide 21 Anion Gap 11 BUN 90 H Creatinine 3.8 H Creat Clearance w eGFR 15.18 Random Glucose 86 Calcium 8.0 L Total Bilirubin 0.4 AST 35 ALT 44 Alkaline Phosphatase 82 Total Protein 5.5 L Albumin 2.2 L Active Medications Generic Name Dose Route Start Last Admin Trade Name Freq PRN Reason Stop Dose Admin Acetaminophen 650 mg 02/03/18 16:52 02/08/18 20:01 Tylenol - PO 650 mg Q6H PRN Administration PAIN 6-10 Acetaminophen 650 mg 02/10/18 10:55 Tylenol - PO 02/13/18 10:54 Q4H PRN MODERATE PAIN Protocol Allopurinol 100 mg 02/03/18 10:00 02/10/18 10:32 Zyloprim - PO 100 mg DAILY [facility] Administration Atorvastatin Calcium 10 mg 02/03/18 22:00 02/09/18 21:23 Lipitor - PO 10 mg HS [facility] Administration Heparin Sodium (Porcine) 5,000 unit 02/10/18 14:00 02/10/18 14:19 Heparin - SQ 5,000 unit TID [facility] Administration Hydralazine HCl 50 mg 02/03/18 10:00 02/10/18 10:32 Apresoline - PO 50 mg BID [facility] Administration Hydrocortisone 1 applic 02/05/18 02:15 02/10/18 10:32 Anusol 2.5% Hc Cream - TP 1 applic BID [facility] Administration Hydroxyzine HCl 25 mg 02/05/18 02:13 02/10/18 10:31 Atarax - PO 25 mg Q8H PRN Administration ITCHING Piperacillin Sod/Tazobactam 50 mls @ 100 mls/hr 02/03/18 14:00 02/10/18 14:19 Sod 2.25 gm/ Dextrose IVPB 100 mls/hr Q8H [facility] Administration Protocol Ketoconazole 1 applic 02/09/18 10:00 02/10/18 10:33 Nizoral 2% Cream - TP 1 appful DAILY [facility] Administration Metoprolol Tartrate 25 mg 02/03/18 10:00 02/10/18 10:32 Lopressor - PO 25 mg BID [facility] Administration Mupirocin 1 applic 02/05/18 22:00 02/10/18 10:46 Bactroban 2% Ointment - TP 1 applic BID [facility] Administration Nystatin 1 applic 02/05/18 19:00 02/10/18 10:33 Nystop Powder - TP 1 applic DAILY [facility] Administration Pantoprazole Sodium 40 mg 02/03/18 10:00 02/10/18 10:33 Protonix Iv IVPUSH 40 mg DAILY [facility] Administration Tramadol HCl 50 mg 02/08/18 22:00 Ultram - PO BID PRN PAIN LEVEL 7 - 10 Triamcinolone Acetonide 1 applic 02/05/18 22:00 02/10/18 10:32 Aristocort 0.1% Ointment - TP 1 applic BID [facility] Administration ASSESSMENT/PLAN: 87 yo M with PMHx of CHF(s/p AICD), CAD(s/p CABG 2009), CKD stage 4, prostate ca (s/p radiation 1994), AAA, and Afib(on Eliquis) presents with 2 day history of chest pain. Found to have lung mass and admitted for obstructive PNA. Lung biopsy performed pending pathology. Problem List - Problems (1) Lung mass Assessment/Plan: Lung mass suspicious for malignancy. * Biopsy done yesterday tolerated procedure well. * Will need tissue diagnosis to establish treatment options. * Good performance status; * ECOG performance status of 2 (2) Atrial fibrillation Assessment/Plan: AC held 72 hrs prior to biopsy. * Resume Eliquis on as per Cardiology. (3) Liver mass (4) Bone lesion (5) PNA (pneumonia) Assessment/Plan: possible obstructive PNA * ID consult appreciated. * Empiric Zosyn day 7 * c/s.show no growth in 5 days. (6) CKD (chronic kidney disease) stage 4, GFR 15-29 ml/min (7) CAD (coronary artery disease) (8) CHF (congestive heart failure) (9) Chest pain Visit type - Emergency Visit Emergency Visit: Yes ED Registration Date: 02/03/18 Care time: The patient presented to the Emergency Department on the above date and was hospitalized for further evaluation of their emergent condition. - New Patient This patient is new to me today: No - Critical Care Critical Care patient: No
--- NOTE | 2018-02-10 18:56 | PN ---
Teaching Attending Note Name of Resident: Maximus Brown ATTENDING PHYSICIAN STATEMENT I saw and evaluated the patient. I reviewed the resident's note and discussed the case with the resident. I agree with the resident's findings and plan as documented. SUBJECTIVE: Patient sen and examined S/P biopsy Tissue pending On P.E. " crackles" at bases Lab: Kidney function -mildly improved Plan: Await results of biopsy. OBJECTIVE: ASSESSMENT AND PLAN:
[2018-02-10] MEDS ORDERED: PT OWN MED DRAWER 7, Y5N ONE (20:19)
[2018-02-10] MEDS: ATORVASTATIN CA 10 MG TABLET (FP) PO SCH (21:23)
[2018-02-11] MEDS ORDERED: PIPERACILLIN/TAZOBACTAM 2.25 GM VIAL IVPB ONE (05:23)
[2018-02-11] MEDS ORDERED: DEXTROSE 5%-WATER - 50 ML IVPB ONE (05:23)
[2018-02-11] MEDS: PIPERACILLIN/TAZOB 2.25 GM 2.25 GM in DEXTROSE 5%-WATER - 50 ML IVPB SCH ×2 (05:35→14:08)
[2018-02-11] MEDS: HEPARIN NA (PORCINE) 5,000 UNITS/ML 1ML VIAL SQ SCH (05:35)
--- NOTE | 2018-02-11 07:35 | PN ---
Progress Note (short form) - Note Progress Note: Patient seen and examined Uneventful overnight Denies chest pain or SOB Non productive cough No GI symptoms of nausea, diarrhea, constipation reported Last Vital Signs Temp Pulse Resp BP Pulse Ox 98.4 F 60 20 113/52 L 97 02/11/18 06:00 02/11/18 06:00 02/11/18 06:00 02/11/18 06:00 02/10/18 21:00 HEENT: SANDRA, EOM Intact Oropharynx: No thrush, No mucositis Cor: irregular rhythm Lungs: wheezes and rales bases Abd: Soft, Normal bowel sounds, No organomegaly Ext:No significant edema Skin: No rashes, Integument intact CBC, BMP 02/10/18 06:00 Current Medications Generic Name Dose Route Start Last Admin Trade Name Freq PRN Reason Stop Dose Admin Acetaminophen 650 mg 02/03/18 16:52 02/08/18 20:01 Tylenol - PO 650 mg Q6H PRN Administration PAIN 6-10 Allopurinol 100 mg 02/03/18 10:00 02/10/18 10:32 Zyloprim - PO 100 mg DAILY [facility] Administration Atorvastatin Calcium 10 mg 02/03/18 22:00 02/10/18 21:23 Lipitor - PO 10 mg HS [facility] Administration Heparin Sodium (Porcine) 5,000 unit 02/10/18 14:00 02/11/18 05:35 Heparin - SQ 5,000 unit TID [facility] Administration Hydralazine HCl 50 mg 02/03/18 10:00 02/10/18 21:22 Apresoline - PO 50 mg BID [facility] Administration Hydrocortisone 1 applic 02/05/18 02:15 02/10/18 21:26 Anusol 2.5% Hc Cream - TP 1 applic BID [facility] Administration Hydroxyzine HCl 25 mg 02/05/18 02:13 02/10/18 19:56 Atarax - PO 25 mg Q8H PRN Administration ITCHING Piperacillin Sod/Tazobactam 50 mls @ 100 mls/hr 02/03/18 14:00 02/11/18 05:35 Sod 2.25 gm/ Dextrose IVPB 100 mls/hr Q8H [facility] Administration Protocol Ketoconazole 1 applic 02/09/18 10:00 02/10/18 10:33 Nizoral 2% Cream - TP 1 appful DAILY [facility] Administration Metoprolol Tartrate 25 mg 02/03/18 10:00 02/10/18 21:23 Lopressor - PO 25 mg BID [facility] Administration Mupirocin 1 applic 02/05/18 22:00 02/10/18 21:25 Bactroban 2% Ointment - TP 1 applic BID [facility] Administration Nystatin 1 applic 02/05/18 19:00 02/10/18 10:33 Nystop Powder - TP 1 applic DAILY [facility] Administration Pantoprazole Sodium 40 mg 02/03/18 10:00 02/10/18 10:33 Protonix Iv IVPUSH 40 mg DAILY [facility] Administration Tramadol HCl 50 mg 02/08/18 22:00 Ultram - PO BID PRN PAIN LEVEL 7 - 10 Triamcinolone Acetonide 1 applic 02/05/18 22:00 02/10/18 21:25 Aristocort 0.1% Ointment - TP 1 applic BID [facility] Administration Impression: Lung mass with bone /liver masses - S/P liver biopsy CKD CHF Pneumonia Plan: treatment of CHF Await biopsy.
[2018-02-11 07:59] LABS: ALBUMIN 2.3 g/dl (3.4-5.0); ALK PHOS 76 U/L (45-117); ANION GAP 13 MMOL/L (8-16); BILIRUBIN,TOTAL 0.3 mg/dL (0.2-1); BLOOD UREA NITROGEN 89 mg/dL (7-18); CALCIUM 8.2 mg/dL (8.5-10.1); CHLORIDE 107 mmol/L (98-107); CO2 19 mmol/L (21-32); CREATININE 3.6 mg/dL (0.55-1.3); GLUCOSE,RANDOM 86 mg/dL (74-106); POTASSIUM 3.8 mmol/L (3.5-5.1); SGOT/AST 25 U/L (15-37); SGPT/ALT 33 U/L (13-61); SODIUM 138 mmol/L (136-145); TOT PROT 5.6 g/dl (6.4-8.2)
[2018-02-11] MEDS: hydrALAZINE HCL 25 MG TABLET (FP) PO SCH ×2 (10:29→21:19)
[2018-02-11] MEDS: METOPROLOL TARTRATE 25 MG TABLET (FP) PO SCH ×2 (10:29→21:19)
[2018-02-11] MEDS: ALLOPURINOL 100 MG TABLET (FP) PO SCH (10:31)
[2018-02-11] MEDS: PANTOPRAZOLE SODIUM 40 MG VIAL IVPUSH SCH (10:31)
[2018-02-11] MEDS: TRIAMCINOLONE ACET 0.1% OINT 15 GM TUBE TP SCH ×2 (10:47→21:19)
[2018-02-11] MEDS: KETOCONAZOLE 2% CREAM - 60GM TUBE TP SCH (10:47)
[2018-02-11] MEDS: HYDROCORTISONE 2.5% TOPICAL CREAM 30 GM TUBE TP SCH ×2 (10:47→21:19)
[2018-02-11] MEDS: NYSTATIN POWDER 100,000 UNITS/GM - 15 GM TOPICAL POWDER TP SCH (10:47)
[2018-02-11] MEDS: MUPIROCIN 2% TOPICAL OINTMENT 22 GM TUBE TP SCH ×2 (10:47→21:19)
[2018-02-11] MEDS ORDERED: FUROSEMIDE 40 MG TABLET (FP) PO ONE (11:30)
--- NOTE | 2018-02-11 11:30 | PN ---
Progress Note, Physician History of Present Illness: Pt seen and examined at bedside. He is awake and alert. He denies shortness of breath. - Current Medication List Current Medications: Active Medications Acetaminophen (Tylenol -) 650 mg PO Q6H PRN PRN Reason: PAIN 6-10 Last Admin: 02/08/18 20:01 Dose: 650 mg Allopurinol (Zyloprim -) 100 mg PO DAILY [facility] Last Admin: 02/11/18 10:31 Dose: 100 mg Atorvastatin Calcium (Lipitor -) 10 mg PO HS [facility] Last Admin: 02/10/18 21:23 Dose: 10 mg Heparin Sodium (Porcine) (Heparin -) 5,000 unit SQ TID [facility] Last Admin: 02/11/18 05:35 Dose: 5,000 unit Hydralazine HCl (Apresoline -) 50 mg PO BID [facility] Last Admin: 02/11/18 10:29 Dose: 50 mg Hydrocortisone (Anusol 2.5% Hc Cream -) 1 applic TP BID [facility] Last Admin: 02/11/18 10:47 Dose: 1 applic Hydroxyzine HCl (Atarax -) 25 mg PO Q8H PRN PRN Reason: ITCHING Last Admin: 02/10/18 19:56 Dose: 25 mg Piperacillin Sod/Tazobactam (Sod 2.25 gm/ Dextrose) 50 mls @ 100 mls/hr IVPB Q8H [facility]; Protocol Last Admin: 02/11/18 05:35 Dose: 100 mls/hr Ketoconazole (Nizoral 2% Cream -) 1 applic TP DAILY [facility] Last Admin: 02/11/18 10:47 Dose: 1 applic Metoprolol Tartrate (Lopressor -) 25 mg PO BID [facility] Last Admin: 02/11/18 10:29 Dose: 25 mg Mupirocin (Bactroban 2% Ointment -) 1 applic TP BID [facility] Last Admin: 02/11/18 10:47 Dose: 1 applic Nystatin (Nystop Powder -) 1 applic TP DAILY [facility] Last Admin: 02/11/18 10:47 Dose: 1 applic Pantoprazole Sodium (Protonix Iv) 40 mg IVPUSH DAILY [facility] Last Admin: 02/11/18 10:31 Dose: 40 mg Tramadol HCl (Ultram -) 50 mg PO BID PRN PRN Reason: PAIN LEVEL 7 - 10 Triamcinolone Acetonide (Aristocort 0.1% Ointment -) 1 applic TP BID [facility] Last Admin: 02/11/18 10:47 Dose: 1 applic - Objective Vital Signs: Vital Signs Temperature 98.4 F 02/11/18 10:19 Pulse Rate 63 02/11/18 10:19 Respiratory Rate 18 02/11/18 10:19 Blood Pressure 127/60 02/11/18 10:19 O2 Sat by Pulse Oximetry (%) 97 02/10/18 21:00 Constitutional: Yes: Calm Eyes: Yes: Conjunctiva Clear HENT: Yes: Atraumatic Neck: Yes: Supple Cardiovascular: Yes: S1, S2 Respiratory: Yes: On Nasal O2 Gastrointestinal: Yes: Soft, Abdomen, Obese Genitourinary: Yes: WNL Edema: Yes Edema: LLE: 1+, RLE: 1+ Neurological: Yes: Oriented Psychiatric: Yes: Oriented Labs: CBC, BMP 02/10/18 06:00 02/11/18 06:00 INR, PTT INR 1.07 (0.83-1.09) 02/09/18 10:00 Problem List - Problems (1) Bone lesion Code(s): M89.9 - DISORDER OF BONE, UNSPECIFIED (2) CHF exacerbation Code(s): I50.9 - HEART FAILURE, UNSPECIFIED Qualifiers: Heart failure type: unspecified Qualified Code(s): I50.9 - Heart failure, unspecified (3) CKD (chronic kidney disease) stage 4, GFR 15-29 ml/min Code(s): N18.4 - CHRONIC KIDNEY DISEASE, STAGE 4 (SEVERE) (4) Chest pain Code(s): R07.9 - CHEST PAIN, UNSPECIFIED Qualifiers: Chest pain type: chest pain on breathing Qualified Code(s): R07.1 - Chest pain on breathing; R07.81 - Pleurodynia (5) Liver mass Code(s): R16.0 - HEPATOMEGALY, NOT ELSEWHERE CLASSIFIED (6) Lung mass Code(s): R91.8 - OTHER NONSPECIFIC ABNORMAL FINDING OF LUNG FIELD (7) PNA (pneumonia) Code(s): J18.9 - PNEUMONIA, UNSPECIFIED ORGANISM Qualifiers: Pneumonia type: due to unspecified organism Laterality: unspecified laterality Lung location: unspecified part of lung Qualified Code(s): J18.9 - Pneumonia, unspecified organism Assessment/Plan Current Medications Generic Name Dose Route Start Last Admin Trade Name Freq PRN Reason Stop Dose Admin Acetaminophen 650 mg 02/03/18 16:52 02/08/18 20:01 Tylenol - PO 650 mg Q6H PRN Administration PAIN 6-10 Allopurinol 100 mg 02/03/18 10:00 02/11/18 10:31 Zyloprim - PO 100 mg DAILY [facility] Administration Atorvastatin Calcium 10 mg 02/03/18 22:00 02/10/18 21:23 Lipitor - PO 10 mg HS [facility] Administration Heparin Sodium (Porcine) 5,000 unit 02/10/18 14:00 02/11/18 05:35 Heparin - SQ 5,000 unit TID [facility] Administration Hydralazine HCl 50 mg 02/03/18 10:00 02/11/18 10:29 Apresoline - PO 50 mg BID [facility] Administration Hydrocortisone 1 applic 02/05/18 02:15 02/11/18 10:47 Anusol 2.5% Hc Cream - TP 1 applic BID [facility] Administration Hydroxyzine HCl 25 mg 02/05/18 02:13 02/10/18 19:56 Atarax - PO 25 mg Q8H PRN Administration ITCHING Piperacillin Sod/Tazobactam 50 mls @ 100 mls/hr 02/03/18 14:00 02/11/18 05:35 Sod 2.25 gm/ Dextrose IVPB 100 mls/hr Q8H [facility] Administration Protocol Ketoconazole 1 applic 02/09/18 10:00 02/11/18 10:47 Nizoral 2% Cream - TP 1 applic DAILY [facility] Administration Metoprolol Tartrate 25 mg 02/03/18 10:00 02/11/18 10:29 Lopressor - PO 25 mg BID [facility] Administration Mupirocin 1 applic 02/05/18 22:00 02/11/18 10:47 Bactroban 2% Ointment - TP 1 applic BID [facility] Administration Nystatin 1 applic 02/05/18 19:00 02/11/18 10:47 Nystop Powder - TP 1 applic DAILY [facility] Administration Pantoprazole Sodium 40 mg 02/03/18 10:00 02/11/18 10:31 Protonix Iv IVPUSH 40 mg DAILY [facility] Administration Tramadol HCl 50 mg 02/08/18 22:00 Ultram - PO BID PRN PAIN LEVEL 7 - 10 Triamcinolone Acetonide 1 applic 02/05/18 22:00 02/11/18 10:47 Aristocort 0.1% Ointment - TP 1 applic BID [facility] Administration Impression 1. CKD 2. CARROL 3. CAD 4. s/p aicd 5. liver lesions 6. pancreatic lesions 7. lung mass 8. pna 9. a-fib 10. HTN 11. AAA 12. HLD Plan - renal function continues to stabilize - will give a dose of lasix, will give 80 today - repeat labs in am - follow up biopsy - will follow - discussed with family Dr Perez
--- NOTE | 2018-02-11 13:07 | PN ---
Progress Note, Physician History of Present Illness: PULMONARY ALERT,NO DISTRESS,-CP,-COUGH,-SOB - Current Medication List Current Medications: Active Medications Acetaminophen (Tylenol -) 650 mg PO Q6H PRN PRN Reason: PAIN 6-10 Last Admin: 02/08/18 20:01 Dose: 650 mg Allopurinol (Zyloprim -) 100 mg PO DAILY [facility] Last Admin: 02/11/18 10:31 Dose: 100 mg Atorvastatin Calcium (Lipitor -) 10 mg PO HS [facility] Last Admin: 02/10/18 21:23 Dose: 10 mg Heparin Sodium (Porcine) (Heparin -) 5,000 unit SQ TID [facility] Last Admin: 02/11/18 05:35 Dose: 5,000 unit Hydralazine HCl (Apresoline -) 50 mg PO BID [facility] Last Admin: 02/11/18 10:29 Dose: 50 mg Hydrocortisone (Anusol 2.5% Hc Cream -) 1 applic TP BID [facility] Last Admin: 02/11/18 10:47 Dose: 1 applic Hydroxyzine HCl (Atarax -) 25 mg PO Q8H PRN PRN Reason: ITCHING Last Admin: 02/10/18 19:56 Dose: 25 mg Piperacillin Sod/Tazobactam (Sod 2.25 gm/ Dextrose) 50 mls @ 100 mls/hr IVPB Q8H [facility]; Protocol Last Admin: 02/11/18 05:35 Dose: 100 mls/hr Ketoconazole (Nizoral 2% Cream -) 1 applic TP DAILY [facility] Last Admin: 02/11/18 10:47 Dose: 1 applic Metoprolol Tartrate (Lopressor -) 25 mg PO BID [facility] Last Admin: 02/11/18 10:29 Dose: 25 mg Mupirocin (Bactroban 2% Ointment -) 1 applic TP BID [facility] Last Admin: 02/11/18 10:47 Dose: 1 applic Nystatin (Nystop Powder -) 1 applic TP DAILY [facility] Last Admin: 02/11/18 10:47 Dose: 1 applic Pantoprazole Sodium (Protonix Iv) 40 mg IVPUSH DAILY [facility] Last Admin: 02/11/18 10:31 Dose: 40 mg Tramadol HCl (Ultram -) 50 mg PO BID PRN PRN Reason: PAIN LEVEL 7 - 10 Triamcinolone Acetonide (Aristocort 0.1% Ointment -) 1 applic TP BID [facility] Last Admin: 02/11/18 10:47 Dose: 1 applic - Objective Vital Signs: Vital Signs Temperature 98.4 F 02/11/18 10:19 Pulse Rate 63 02/11/18 10:19 Respiratory Rate 18 02/11/18 10:19 Blood Pressure 127/60 02/11/18 10:19 O2 Sat by Pulse Oximetry (%) 98 02/11/18 10:00 Constitutional: Yes: Well Nourished, Calm Eyes: Yes: WNL HENT: Yes: WNL Neck: Yes: WNL Cardiovascular: Yes: Pulse Irregular, S1, S2 Respiratory: Yes: Rales (CRACKLES R BASE) Gastrointestinal: Yes: Normal Bowel Sounds, Soft Extremities: Yes: WNL Edema: No Labs: CBC, BMP 02/10/18 06:00 02/11/18 06:00 INR, PTT INR 1.07 (0.83-1.09) 02/09/18 10:00 Assessment/Plan Problem List - Problems (1) Lung mass Code(s): R91.8 - OTHER NONSPECIFIC ABNORMAL FINDING OF LUNG FIELD (2) PNA (pneumonia) Code(s): J18.9 - PNEUMONIA, UNSPECIFIED ORGANISM Qualifiers: Pneumonia type: due to unspecified organism Laterality: unspecified laterality Lung location: unspecified part of lung Qualified Code(s): J18.9 - Pneumonia, unspecified organism (3) Bone lesion Code(s): M89.9 - DISORDER OF BONE, UNSPECIFIED (4) CKD (chronic kidney disease) stage 4, GFR 15-29 ml/min Code(s): N18.4 - CHRONIC KIDNEY DISEASE, STAGE 4 (SEVERE) (5) Liver mass Code(s): R16.0 - HEPATOMEGALY, NOT ELSEWHERE CLASSIFIED (6) Atrial fibrillation Code(s): I48.91 - UNSPECIFIED ATRIAL FIBRILLATION Qualifiers: Atrial fibrillation type: permanent Qualified Code(s): I48.2 - Chronic atrial fibrillation (7) CAD (coronary artery disease) Code(s): I25.10 - ATHSCL HEART DISEASE OF [place] CORONARY ARTERY W/O ANG PCTRS (8) CHF (congestive heart failure) Code(s): I50.9 - HEART FAILURE, UNSPECIFIED (9) Hx of CABG Code(s): Z95.1 - PRESENCE OF AORTOCORONARY BYPASS GRAFT Assessment/Plan Lung Mass - r/o Metastatic Disease s/p liver bx r/o Pneumonia CAD s/p CABG LV Diastolic Dysfunction Atrial Fibrillation CKD - antibiotics as per ID - ac - rate control - O2 as needed - path pending DR DE LEON
--- NOTE | 2018-02-11 13:32 | PN ---
Progress Note, Physician Chief Complaint: no complaints - Current Medication List Current Medications: Active Medications Acetaminophen (Tylenol -) 650 mg PO Q6H PRN PRN Reason: PAIN 6-10 Last Admin: 02/08/18 20:01 Dose: 650 mg Allopurinol (Zyloprim -) 100 mg PO DAILY [facility] Last Admin: 02/11/18 10:31 Dose: 100 mg Atorvastatin Calcium (Lipitor -) 10 mg PO HS [facility] Last Admin: 02/10/18 21:23 Dose: 10 mg Heparin Sodium (Porcine) (Heparin -) 5,000 unit SQ TID [facility] Last Admin: 02/11/18 05:35 Dose: 5,000 unit Hydralazine HCl (Apresoline -) 50 mg PO BID [facility] Last Admin: 02/11/18 10:29 Dose: 50 mg Hydrocortisone (Anusol 2.5% Hc Cream -) 1 applic TP BID [facility] Last Admin: 02/11/18 10:47 Dose: 1 applic Hydroxyzine HCl (Atarax -) 25 mg PO Q8H PRN PRN Reason: ITCHING Last Admin: 02/10/18 19:56 Dose: 25 mg Piperacillin Sod/Tazobactam (Sod 2.25 gm/ Dextrose) 50 mls @ 100 mls/hr IVPB Q8H [facility]; Protocol Last Admin: 02/11/18 05:35 Dose: 100 mls/hr Ketoconazole (Nizoral 2% Cream -) 1 applic TP DAILY [facility] Last Admin: 02/11/18 10:47 Dose: 1 applic Metoprolol Tartrate (Lopressor -) 25 mg PO BID [facility] Last Admin: 02/11/18 10:29 Dose: 25 mg Mupirocin (Bactroban 2% Ointment -) 1 applic TP BID [facility] Last Admin: 02/11/18 10:47 Dose: 1 applic Nystatin (Nystop Powder -) 1 applic TP DAILY [facility] Last Admin: 02/11/18 10:47 Dose: 1 applic Pantoprazole Sodium (Protonix Iv) 40 mg IVPUSH DAILY [facility] Last Admin: 02/11/18 10:31 Dose: 40 mg Tramadol HCl (Ultram -) 50 mg PO BID PRN PRN Reason: PAIN LEVEL 7 - 10 Triamcinolone Acetonide (Aristocort 0.1% Ointment -) 1 applic TP BID [facility] Last Admin: 02/11/18 10:47 Dose: 1 applic - Objective Vital Signs: Vital Signs Temperature 98.4 F 02/11/18 10:19 Pulse Rate 63 02/11/18 10:19 Respiratory Rate 18 02/11/18 10:19 Blood Pressure 127/60 02/11/18 10:19 O2 Sat by Pulse Oximetry (%) 98 02/11/18 10:00 Constitutional: Yes: No Distress Eyes: Yes: WNL HENT: Yes: WNL Neck: Yes: WNL Cardiovascular: Yes: WNL Respiratory: Yes: Diminished Gastrointestinal: Yes: WNL ...Rectal Exam: Yes: Deferred Genitourinary: Yes: WNL, Urethral Discharge Musculoskeletal: Yes: Back Pain Extremities: Yes: WNL Edema: Yes Edema: LLE: 1+, RLE: 1+ Peripheral Pulses WNL: Yes Integumentary: Yes: WNL Neurological: Yes: WNL, Unresponsive Psychiatric: Yes: WNL Labs: CBC, BMP 02/10/18 06:00 02/11/18 06:00 INR, PTT INR 1.07 (0.83-1.09) 02/09/18 10:00 Problem List - Problems (1) Atrial fibrillation Code(s): I48.91 - UNSPECIFIED ATRIAL FIBRILLATION Qualifiers: Atrial fibrillation type: permanent Qualified Code(s): I48.2 - Chronic atrial fibrillation Assessment/Plan d/c in am eliqis in am bid cont all tx as is at home dr ruby f/u ? eulogio
--- NOTE | 2018-02-11 14:01 | PATH ---
Surgical Pathology Report Patient Name: LELAND MAST [facility]. Rec. #: [id number] /Age/Gender: 1930 (Age: 87) / M Account: [id number] Location: 4 SO PEDS/ADOL Taken: 02/09/2018 Received: 02/09/2018 Reported: 02/11/2018 Physicians: Jc Núñez M.D. Roscoe Morrison M.D. Specimen(s) Received LIVER TISSUE Clinical History 87 year old with lung masses and liver lesions Rule out metastases lung cancer to liver versus other primary Final Diagnosis LIVER TISSUE, BIOPSY: ADENOCARCINOMA, POORLY DIFFERENTIATED. COMMENT: Immunohistochemical stained slides demonstrate tumor cells to be positive for AE1/AE3, CK7, Napsin A, and TTF-1, while negative for P63, CK20, PSAP,PSA, NKX3.1, Glypican -3, and HepPar1. This phenotype is consistent with adenocarcinoma of lung primary. Immunohistochemistry stains Napsin A, PSAP, PSA, NKX3.1, Glypican -3, and HepPar1 performed at [place], [place] ([id number]) interpreted at [facility]. Immunohistochemistry stains AE1/AE3, CK7, CK20, P63, and TTF-1performed and interpreted at [facility]. Positive and negative controls (internal if applicable) show appropriate results. Intradepartmental case reviewed with consensus on diagnosis. This case was discussed with Dr. Morrison on February 11, 2018. Electronically Signed Karen Milligan M.D. Gross Description Received in formalin labeled "liver tissue" are multiple cordon cylindrical portions of soft tissue ranging from 0.2-0.7 cm in length and averaging 0.1 cm diameter. The specimens are submitted in toto in one cassette. __ MLSZ/02/09/2018 sanml/02/09/2018
[2018-02-11] MEDS: ACETAMINOPHEN 325 MG TABLET (FP) PO PRN ×2 (15:15→21:19)
--- NOTE | 2018-02-11 15:19 | PN ---
Physical Exam: SUBJECTIVE: Patient seen and examined at bedside. POD#2 s/p liver biopsy. No overnight events. No new complaints. Denies BYNUM, SOB, abdominal pain or nausea. OBJECTIVE: Vital Signs Period Temp Pulse Resp BP Sys/Hicks Pulse Ox Last 24 Hr 96.8 F-98.4 F 60-65 16-20 113-144/52-68 97-98 GENERAL: The patient is awake, alert, and fully oriented, in no acute distress. HEAD: Normal with no signs of trauma. EYES: PERRL, extraocular movements intact, sclera anicteric, conjunctiva clear. No ptosis. ENT: Ears normal, nares patent, oropharynx clear without exudates, moist mucous membranes. NECK: Trachea midline, full range of motion, supple. LUNGS: Breath sounds equal, clear to auscultation bilaterally, no wheezes, no crackles, no accessory muscle use. HEART: Regular rate and rhythm, S1, S2 without murmur, rub or gallop. ABDOMEN: Soft, nontender, nondistended, normoactive bowel sounds, no guarding, no rebound, no hepatosplenomegaly, no masses. EXTREMITIES: 2+ pulses, warm, well-perfused, no edema. NEUROLOGICAL: Cranial nerves II through XII grossly intact. Normal speech, gait not observed. PSYCH: Normal mood, normal affect. SKIN: Warm, dry, normal turgor, no rashes or lesions noted Laboratory Results - last 24 hr 02/11/18 06:00 Sodium 138 Potassium 3.8 Chloride 107 Carbon Dioxide 19 L Anion Gap 13 BUN 89 H Creatinine 3.6 H Creat Clearance w eGFR 16.16 Random Glucose 86 Calcium 8.2 L Total Bilirubin 0.3 AST 25 ALT 33 Alkaline Phosphatase 76 Total Protein 5.6 L Albumin 2.3 L Active Medications Generic Name Dose Route Start Last Admin Trade Name Freq PRN Reason Stop Dose Admin Acetaminophen 650 mg 02/03/18 16:52 02/08/18 20:01 Tylenol - PO 650 mg Q6H PRN Administration PAIN 6-10 Allopurinol 100 mg 02/03/18 10:00 02/11/18 10:31 Zyloprim - PO 100 mg DAILY [facility] Administration Apixaban 2.5 mg 02/11/18 22:00 Eliquis - PO BID [facility] Atorvastatin Calcium 10 mg 02/03/18 22:00 02/10/18 21:23 Lipitor - PO 10 mg HS [facility] Administration Hydralazine HCl 50 mg 02/03/18 10:00 02/11/18 10:29 Apresoline - PO 50 mg BID [facility] Administration Hydrocortisone 1 applic 02/05/18 02:15 02/11/18 10:47 Anusol 2.5% Hc Cream - TP 1 applic BID [facility] Administration Hydroxyzine HCl 25 mg 02/05/18 02:13 02/10/18 19:56 Atarax - PO 25 mg Q8H PRN Administration ITCHING Piperacillin Sod/Tazobactam 50 mls @ 100 mls/hr 02/03/18 14:00 02/11/18 14:08 Sod 2.25 gm/ Dextrose IVPB Not Given Q8H [facility] Protocol Ketoconazole 1 applic 02/09/18 10:00 02/11/18 10:47 Nizoral 2% Cream - TP 1 applic DAILY [facility] Administration Metoprolol Tartrate 25 mg 02/03/18 10:00 02/11/18 10:29 Lopressor - PO 25 mg BID [facility] Administration Mupirocin 1 applic 02/05/18 22:00 02/11/18 10:47 Bactroban 2% Ointment - TP 1 applic BID [facility] Administration Nystatin 1 applic 02/05/18 19:00 02/11/18 10:47 Nystop Powder - TP 1 applic DAILY [facility] Administration Pantoprazole Sodium 40 mg 02/03/18 10:00 02/11/18 10:31 Protonix Iv IVPUSH 40 mg DAILY [facility] Administration Tramadol HCl 50 mg 02/08/18 22:00 Ultram - PO BID PRN PAIN LEVEL 7 - 10 Triamcinolone Acetonide 1 applic 02/05/18 22:00 02/11/18 10:47 Aristocort 0.1% Ointment - TP 1 applic BID [facility] Administration ASSESSMENT/PLAN: Problem List - Problems (1) Lung mass Assessment/Plan: Lung mass suspicious for malignancy. * Biopsy done shows poorly differentiated adenocarcinoma * Will have discussion with family in AM * will await PDL and receptor results * Good performance status; * ECOG performance status of 2 (2) Atrial fibrillation Assessment/Plan: AC held 72 hrs prior to biopsy. * Resume Eliquis on as per Cardiology. (3) Liver mass (4) Bone lesion (5) PNA (pneumonia) Assessment/Plan: possible obstructive PNA * ID consult appreciated. * Empiric Zosyn for 7 days completed. * c/s.show no growth (6) CKD (chronic kidney disease) stage 4, GFR 15-29 ml/min Assessment/Plan: improving. * Will continue to monitor renal function * renal dose meds * avoid nephrotoxic meds (7) CAD (coronary artery disease) Assessment/Plan: ACS less likely * ASA held for biopsy * continue BB * Imdur added. (8) CHF (congestive heart failure) Assessment/Plan: Continue home meds. * Furosemide (Lasix -) 80 mg IV given today. * Metoprolol Tartrate (Lopressor -) 25 mg PO BID * tele monitoring * monitor I/O's * salt restricted diet. Visit type - Emergency Visit Emergency Visit: Yes ED Registration Date: 02/03/18 Care time: The patient presented to the Emergency Department on the above date and was hospitalized for further evaluation of their emergent condition. - New Patient This patient is new to me today: No - Critical Care Critical Care patient: No
--- NOTE | 2018-02-11 18:12 | PN ---
Progress Note, Physician History of Present Illness: OOB in chair C/O occasional cough, L pleuritic cp No c/o fever/ chills Afebrile WBC WNL BC (-) Sputum normal nicci - Current Medication List Current Medications: Active Medications Acetaminophen (Tylenol -) 650 mg PO Q6H PRN PRN Reason: PAIN 6-10 Last Admin: 02/11/18 15:15 Dose: 650 mg Allopurinol (Zyloprim -) 100 mg PO DAILY [facility] Last Admin: 02/11/18 10:31 Dose: 100 mg Apixaban (Eliquis -) 2.5 mg PO BID [facility] Atorvastatin Calcium (Lipitor -) 10 mg PO HS [facility] Last Admin: 02/10/18 21:23 Dose: 10 mg Hydralazine HCl (Apresoline -) 50 mg PO BID [facility] Last Admin: 02/11/18 10:29 Dose: 50 mg Hydrocortisone (Anusol 2.5% Hc Cream -) 1 applic TP BID [facility] Last Admin: 02/11/18 10:47 Dose: 1 applic Hydroxyzine HCl (Atarax -) 25 mg PO Q8H PRN PRN Reason: ITCHING Last Admin: 02/10/18 19:56 Dose: 25 mg Ketoconazole (Nizoral 2% Cream -) 1 applic TP DAILY [facility] Last Admin: 02/11/18 10:47 Dose: 1 applic Metoprolol Tartrate (Lopressor -) 25 mg PO BID [facility] Last Admin: 02/11/18 10:29 Dose: 25 mg Mupirocin (Bactroban 2% Ointment -) 1 applic TP BID [facility] Last Admin: 02/11/18 10:47 Dose: 1 applic Nystatin (Nystop Powder -) 1 applic TP DAILY [facility] Last Admin: 02/11/18 10:47 Dose: 1 applic Pantoprazole Sodium (Protonix Iv) 40 mg IVPUSH DAILY [facility] Last Admin: 02/11/18 10:31 Dose: 40 mg Tramadol HCl (Ultram -) 50 mg PO BID PRN PRN Reason: PAIN LEVEL 7 - 10 Triamcinolone Acetonide (Aristocort 0.1% Ointment -) 1 applic TP BID [facility] Last Admin: 02/11/18 10:47 Dose: 1 applic - Objective Vital Signs: Vital Signs Temperature 96.8 F L 02/11/18 14:10 Pulse Rate 60 02/11/18 14:10 Respiratory Rate 16 02/11/18 14:10 Blood Pressure 127/57 L 02/11/18 14:10 O2 Sat by Pulse Oximetry (%) 98 02/11/18 10:00 Constitutional: Yes: No Distress Cardiovascular: Yes: Regular Rate and Rhythm, S1, S2 Respiratory: Yes: Other (few crepitations L base) Gastrointestinal: Yes: Normal Bowel Sounds, Soft Edema: Yes Labs: CBC, BMP 02/10/18 06:00 02/11/18 06:00 INR, PTT INR 1.07 (0.83-1.09) 02/09/18 10:00 Assessment/Plan Probable metastatic ca ?post obstructive pneumonia Azotemia S/P bx Await tissue dx D/C antibiotics, observe off Discussed with patient's daughter at bedside
[2018-02-11] MEDS: hydrOXYzine HCL 25 MG TABLET (FP) PO PRN (20:54)
[2018-02-11] MEDS ORDERED: PT OWN MED DRAWER 7, Y5N ONE (21:05)
[2018-02-11] MEDS: ATORVASTATIN CA 10 MG TABLET (FP) PO SCH (21:19)
[2018-02-11] MEDS: APIXABAN 2.5 MG TABLET PO SCH (21:19)
[2018-02-12 06:36] LABS: ANION GAP 10 MMOL/L (8-16); BLOOD UREA NITROGEN 85 mg/dL (7-18); CALCIUM 8.2 mg/dL (8.5-10.1); CHLORIDE 109 mmol/L (98-107); CO2 20 mmol/L (21-32); CREATININE 3.5 mg/dL (0.55-1.3); GLUCOSE,RANDOM 91 mg/dL (74-106); POTASSIUM 3.8 mmol/L (3.5-5.1); SODIUM 139 mmol/L (136-145)
--- NOTE | 2018-02-12 10:37 | DS ---
Physical Examination Vital Signs: Vital Signs Temperature 97.7 F 02/12/18 05:54 Pulse Rate 64 02/12/18 05:54 Respiratory Rate 20 02/12/18 05:54 Blood Pressure 115/53 L 02/12/18 05:54 O2 Sat by Pulse Oximetry (%) 98 02/11/18 21:00 Constitutional: Yes: Well Nourished Eyes: Yes: WNL HENT: Yes: WNL Neck: Yes: WNL Cardiovascular: Yes: WNL Respiratory: Yes: WNL, SOB on Exertion ...Rectal Exam: Yes: Deferred, Other Renal/: Yes: Urethral Discharge Musculoskeletal: Yes: Back Pain Extremities: Yes: WNL Edema: Yes Edema: LLE: 2+, RLE: 2+ Peripheral Pulses WNL: Yes Integumentary: Yes: Rash Wound/Incision: Yes: Clean/Dry Neurological: Yes: WNL ...Motor Strength: WNL Psychiatric: Yes: WNL Labs: CBC, BMP 02/10/18 06:00 02/12/18 06:00 Discharge Summary Reason For Visit: ACUTE ON CHRONIC CONGESTIVE HEART FAILURE Current Active Problems Bone lesion (Acute) CHF exacerbation (Acute) CKD (chronic kidney disease) stage 4, GFR 15-29 ml/min (Acute) Chest pain (Acute) Liver mass (Acute) Lung mass (Acute) PNA (pneumonia) (Acute) Condition: Guarded - Instructions Diet, Activity, Other Instructions: f/u wiyh me x 4 days onco and pulm f/u appts to be made cont all tx as is at home see if onco to get bx report and candidate for [facility] Referrals: Thor Morrison MD [Primary Care Provider] - Disposition: VNS/HOME HEALTH CARE - Home Medications Comprehensive Discharge Medication List: Ambulatory Orders Allopurinol [Zyloprim -] 100 mg PO DAILY 08/23/16 Aspirin [Ecotrin] 81 mg PO DAILY 08/23/16 Atorvastatin Ca [Lipitor] 10 mg PO ASDIR 08/23/16 Folic Acid 1 mg PO DAILY 08/23/16 Furosemide [Lasix] 40 mg PO TID 08/23/16 Hydralazine HCl 50 mg PO BID 08/23/16 Metoprolol Tartrate [Lopressor -] 25 mg PO BID 08/23/16 Tamsulosin HCl [Flomax] 0.4 mg PO DAILY 08/23/16 Apixaban [Eliquis -] 2.5 mg PO BID 02/02/18 Hydroxyzine HCl 25 mg PO HS 02/02/18 Miscellaneous Medical Supply [Outpatient Order] 1 each ASDIR #1 mis
[2018-02-12] MEDS: hydrALAZINE HCL 25 MG TABLET (FP) PO SCH (10:40)
[2018-02-12] MEDS: METOPROLOL TARTRATE 25 MG TABLET (FP) PO SCH (10:40)
[2018-02-12] MEDS: ALLOPURINOL 100 MG TABLET (FP) PO SCH (10:40)
[2018-02-12] MEDS: APIXABAN 2.5 MG TABLET PO SCH (10:41)
[2018-02-12] MEDS: HYDROCORTISONE 2.5% TOPICAL CREAM 30 GM TUBE TP SCH (10:41)
[2018-02-12] MEDS: MUPIROCIN 2% TOPICAL OINTMENT 22 GM TUBE TP SCH (10:42)
[2018-02-12] MEDS: KETOCONAZOLE 2% CREAM - 60GM TUBE TP SCH (10:43)
[2018-02-12] MEDS: NYSTATIN POWDER 100,000 UNITS/GM - 15 GM TOPICAL POWDER TP SCH (10:43)
[2018-02-12 10:45] VITALS: BP 149/68; PULSE 71; TEMP 97.3
--- NOTE | 2018-02-12 11:52 | PN ---
Progress Note (short form) - Note Progress Note: No complaints. No CP, SOB, or abdominal pain. Intake & Output 02/09/18 02/10/18 02/11/18 02/12/18 23:59 23:59 23:59 23:59 Intake Total 220 610 930 370 Balance 220 610 930 370 Last Vital Signs Temp Pulse Resp BP Pulse Ox 97.3 F L 71 19 149/68 98 02/12/18 10:44 02/12/18 10:44 02/12/18 10:44 02/12/18 10:44 02/12/18 09:00 Active Medications Allopurinol (Zyloprim -) 100 mg PO DAILY [facility] Last Admin: 02/12/18 10:40 Dose: 100 mg Apixaban (Eliquis -) 2.5 mg PO BID [facility] Last Admin: 02/12/18 10:41 Dose: 2.5 mg Atorvastatin Calcium (Lipitor -) 10 mg PO HS [facility] Last Admin: 02/11/18 21:19 Dose: 10 mg Hydralazine HCl (Apresoline -) 50 mg PO BID [facility] Last Admin: 02/12/18 10:40 Dose: 50 mg Hydrocortisone (Anusol 2.5% Hc Cream -) 1 applic TP BID [facility] Last Admin: 02/12/18 10:41 Dose: 1 applic Hydroxyzine HCl (Atarax -) 25 mg PO Q8H PRN PRN Reason: ITCHING Last Admin: 02/11/18 20:54 Dose: 25 mg Ketoconazole (Nizoral 2% Cream -) 1 applic TP DAILY [facility] Last Admin: 02/12/18 10:43 Dose: 1 applic Metoprolol Tartrate (Lopressor -) 25 mg PO BID [facility] Last Admin: 02/12/18 10:40 Dose: 25 mg Mupirocin (Bactroban 2% Ointment -) 1 applic TP BID [facility] Last Admin: 02/12/18 10:42 Dose: 1 applic Nystatin (Nystop Powder -) 1 applic TP DAILY [facility] Last Admin: 02/12/18 10:43 Dose: 1 applic Constitutional: Yes: NAD Eyes: Yes: WNL HENT: Yes: WNL Neck: Yes: WNL Cardiovascular: Yes: Pulse Irregular, S1, S2 Respiratory: Yes: few basilar Rhonchi / Rales Gastrointestinal: Yes: Normal Bowel Sounds, Soft Extremities: Yes: WNL Edema: No Labs: Laboratory Results - last 24 hr 02/12/18 06:00 Sodium 139 Potassium 3.8 Chloride 109 H Carbon Dioxide 20 L Anion Gap 10 BUN 85 H Creatinine 3.5 H Creat Clearance w eGFR 16.69 Random Glucose 91 Calcium 8.2 L Assessment/Plan Problem List - Problems (1) Lung mass Code(s): R91.8 - OTHER NONSPECIFIC ABNORMAL FINDING OF LUNG FIELD (2) PNA (pneumonia) Code(s): J18.9 - PNEUMONIA, UNSPECIFIED ORGANISM Qualifiers: Pneumonia type: due to unspecified organism Laterality: unspecified laterality Lung location: unspecified part of lung Qualified Code(s): J18.9 - Pneumonia, unspecified organism (3) Bone lesion Code(s): M89.9 - DISORDER OF BONE, UNSPECIFIED (4) CKD (chronic kidney disease) stage 4, GFR 15-29 ml/min Code(s): N18.4 - CHRONIC KIDNEY DISEASE, STAGE 4 (SEVERE) (5) Liver mass Code(s): R16.0 - HEPATOMEGALY, NOT ELSEWHERE CLASSIFIED (6) Atrial fibrillation Code(s): I48.91 - UNSPECIFIED ATRIAL FIBRILLATION Qualifiers: Atrial fibrillation type: permanent Qualified Code(s): I48.2 - Chronic atrial fibrillation (7) CAD (coronary artery disease) Code(s): I25.10 - ATHSCL HEART DISEASE OF [place] CORONARY ARTERY W/O ANG PCTRS (8) CHF (congestive heart failure) Code(s): I50.9 - HEART FAILURE, UNSPECIFIED (9) Hx of CABG Code(s): Z95.1 - PRESENCE OF AORTOCORONARY BYPASS GRAFT Assessment/Plan Metastatic Adenocarcinoma: lung primary CAD LV Diastolic Dysfunction Atrial Fibrillation CKD D/C planning Patient to see Dr Ward after discharge for further management of Adenocarcinoma Dr Balbuena
== END 2018-02-12 12:30 | disposition home health service (06) | DRG 180 ==
LOC: JER 22:23 → JERBED 02-03 05:42 → J4S 02-03 15:51
PROVIDERS: ADMIT Family Medicine; ATTEND Family Medicine
PROC: 0FD03ZX Extraction of Liver, Percutaneous Approach, Diagnostic (ICD-10-PCS; principal; 2018-02-09)
DX: C34.90 Malignant neoplasm of unspecified part of unspecified bronchus or lung (principal); J18.9 Pneumonia, unspecified organism; I50.33 Acute on chronic diastolic (congestive) heart failure; N18.4 Chronic kidney disease, stage 4 (severe); I13.0 Hypertensive heart and chronic kidney disease with heart failure and stage 1 through stage 4 chronic kidney disease, or unspecified chronic kidney disease; N17.9 Acute kidney failure, unspecified; D37.6 Neoplasm of uncertain behavior of liver, gallbladder and bile ducts; I48.2 Chronic atrial fibrillation; I25.10 Atherosclerotic heart disease of native coronary artery without angina pectoris; Z95.1 Presence of aortocoronary bypass graft; R07.9 Chest pain, unspecified; E78.5 Hyperlipidemia, unspecified
CPT/HCPCS: 36415; 71045-TC-FY; 71046-TC-FY; 71275-TC; 74174-TC; 76775-TC; 76856-TC; 76942-TC; 78306-TC; 80048; 80051; 80053; 81003; 82550; 82570; 83735; 83880; 84100; 84153; 84443; 84484; 85025; 85027; 85610; 85651; 85730; 86140; 86300; 86301; 86850; 86900; 86901; 87040; 87070; 87086; 87205; 87899; 88304-TC; 88341-TC; 93005; 93010; 97116-GP; 97162-GP; 99285-25; A9503; J0131; J1644